=== PATIENT | female | born 1990 | race Caucasian/White ===

== ENCOUNTER 2018-09-21 22:46 | Emergency (ER) | payer OTHER ==
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
[2018-09-21] MEDS ORDERED: SODIUM CHLORIDE 0.9% 1,000 ML IV ONE (23:30)
[2018-09-21] MEDS ORDERED: KETOROLAC 60 MG/2 ML VIAL IVP STA (23:30)
[2018-09-21] MEDS ORDERED: diphenhydrAMINE INJ 50 MG/ML VIAL IVP STA (23:30)
[2018-09-21] MEDS ORDERED: METOCLOPRAMIDE 10 MG/2 ML VIAL IVP STA (23:30)
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
[2018-09-22 02:03] VITALS: BP 106/66
== END 2018-09-22 02:05 | disposition home or self-care (01) ==
LOC: ED 22:46
DX: G43.009 Migraine without aura, not intractable, without status migrainosus (principal); S09.90XA Unspecified injury of head, initial encounter; V29.9XXA Motorcycle rider (driver) (passenger) injured in unspecified traffic accident, initial encounter; F17.200 Nicotine dependence, unspecified, uncomplicated
CPT/HCPCS: 70450; 73090; 96361; 96374; 96375; 99284; J1200; J2765

== ENCOUNTER 2019-01-22 15:23 | Emergency (ER) | payer SELFPAY ==
--- NOTE | 2019-01-22 15:58 | ED Physician Documentation ---
PD HPI HEENT - Stated complaint Stated Complaint: L EAR/NECK PX - Chief complaint Chief Complaint: Heent - History obtained from History obtained from: Patient - History of Present Illness Timing - onset: How many days ago (4-5) Timing - duration: Days Timing - details: Gradual onset, Still present Location: Left ear (initially left ear pain and then pain in left side of neck with swollen glands.) Worsens: No: Swalllowing Associated symptoms: Congestion. No: Fever, Cough Recently seen: Not recently seen Review of Systems Constitutional: denies: Fever, Chills, Myalgias Ears: reports: Ear pain. denies: Drainage/discharge, Tinnitus/ringing Nose: reports: Congestion, Sinus pressure / pain. denies: Rhinorrhea / runny nose Throat: denies: Sore throat Respiratory: denies: Cough Musculoskeletal: reports: Neck pain (left lateral). 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 HEENT: None Psych: Depression, Anxiety Musculoskeletal: None Derm: None - Past Surgical History Past Surgical History: No - Present Medications Home Medications: Ambulatory Orders Medication Instructions Recorded Confirmed Cetirizine [ZyrTEC] 10 mg PO DAILY #15 tablet 01/22/19 Dexamethasone [Decadron] 4 mg PO DAILY #5 tablet 01/22/19 Doxycycline Hyclate 100 mg PO BID #20 capsule 01/22/19 Hydrocodone/Acetaminophen [[place] 1 each PO Q6H PRN #12 tablet 01/22/19 5-325 Tablet] - Allergies Allergies/Adverse Reactions: Allergies Allergy/AdvReac Type Severity Reaction Status Date / Time Latex, Natural Rubber AdvReac Anaphylaxis Verified 01/22/19 15:32 Penicillins AdvReac Anaphylaxis Verified 01/22/19 15:32 - Social History Does the pt smoke?: Yes Smoking Status: Current every day smoker Does the pt drink ETOH?: Yes Does the pt have substance abuse?: No - Immunizations Immunizations are current?: Yes - POLST Patient has POLST: No PD ED PE NORMAL - Vitals Vital signs reviewed: Yes - General General: Alert and oriented X 3, No acute distress, Well developed/nourished - HEENT HEENT: Pharynx benign. No: Ears normal (right is okay; left has appearance of fluid behind the TM, with slight redness. Canal has mild redness mid to medial portion. ) - Neck Neck: Supple, no meningeal sign, Other (left anterior adenopathy that is tender. ) - Cardiac Cardiac: RRR, No murmur - Respiratory Respiratory: Clear bilaterally - Derm Derm: Normal color, Warm and dry, No rash Results - Vitals Vitals: Oxygen O2 Source Room air PD MEDICAL DECISION MAKING - ED course Complexity details: considered differential (the TM appears more serous but she does have neck adenopathy so presume some infectious component. ), d/w patient Departure - Departure Disposition: Home, Self Care Clinical Impression: Otitis media Qualifiers: Otitis media type: suppurative Chronicity: acute Laterality: left Recurrence: non-recurrent Spontaneous tympanic membrane rupture: without spontaneous rupture Qualified Code(s): H66.002 - Acute suppurative otitis media without spontaneous rupture of ear drum, left ear Condition: Stable Record reviewed to determine appropriate education?: Yes Instructions: ED Otitis Media Acute Adult Prescriptions: Cetirizine [ZyrTEC] 10 mg PO DAILY #15 tablet Dexamethasone [Decadron] 4 mg PO DAILY #5 tablet Doxycycline Hyclate 100 mg PO BID #20 capsule Hydrocodone/Acetaminophen [[place] 5-325 Tablet] 1 each PO Q6H PRN #12 tablet PRN Reason: Pain Comments: It does look like an ear infection with fluid behind the eardrum some redness of the canal in the swollen glands you have. We will treated with an antibiotic doxycycline twice daily for a week. There is the fluid behind the eardrum so we will treat that with an antihistamine daily for a week or so and also Decadron steroid anti-inflammatory. Add Tylenol or ibuprofen if needed for pains. Hydrocodone for the worst pain but it should decrease over the first 2-3 days. Discharge Date/Time: 01/22/19 16:33
[2019-01-22] MEDS ORDERED: DEXAMETHASONE 10 MG/ML VIAL PO STA (16:14)
[2019-01-22] MEDS ORDERED: NAPROXEN 250 MG TABLET PO STA (16:14)
[2019-01-22] MEDS ORDERED: HYDROcod/ACETAM 5/325 MG TABLET PO STA (16:14)
[2019-01-22] MEDS ORDERED: DOXYCYCLINE 100 MG TABLET PO STA (16:14)
[2019-01-22 16:26] VITALS: BP 110/92
== END 2019-01-22 16:33 | disposition home or self-care (01) ==
LOC: ED 15:23
DX: H66.002 Acute suppurative otitis media without spontaneous rupture of ear drum, left ear (principal); F17.200 Nicotine dependence, unspecified, uncomplicated
CPT/HCPCS: 99283

== ENCOUNTER 2019-05-14 14:15 | Outpatient (CLI) | payer SELFPAY | END 2019-05-14 14:16 | disposition critical access hospital (66) | LOC: EMS 14:15 | PROVIDERS: ATTEND Surgery | DX: R51 Headache (principal); M25.511 Pain in right shoulder; M79.651 Pain in right thigh; Y04.2XXA Assault by strike against or bumped into by another person, initial encounter | CPT/HCPCS: A0425; A0429 ==

== ENCOUNTER 2019-05-14 14:47 | Emergency (ER) | payer SELFPAY ==
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
[2019-05-14] MEDS ORDERED: TETANUS/DIPHTHERIA/PERTUSSIS 0.5 ML SYRINGE IM ONE (15:10)
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
[2019-05-14 17:14] VITALS: BP 110/76
== END 2019-05-14 17:14 | disposition home or self-care (01) ==
LOC: EDUNIT# → EEVIPCON 14:47 → ED 14:47
DX: S09.8XXA Other specified injuries of head, initial encounter (principal); H53.8 Other visual disturbances; M54.2 Cervicalgia; M54.6 Pain in thoracic spine; Y04.2XXA Assault by strike against or bumped into by another person, initial encounter; Y04.1XXA Assault by human bite, initial encounter; Y92.007 Garden or yard of unspecified non-institutional (private) residence as the place of occurrence of the external cause; F17.200 Nicotine dependence, unspecified, uncomplicated
CPT/HCPCS: 70450; 70486; 72070; 72125; 90471; 99283

== ENCOUNTER 2020-09-17 04:31 | Emergency (ER) | payer SELFPAY ==
--- NOTE | 2020-09-17 04:33 | ED Physician Documentation ---
History of Present Illness - Stated complaint Stated Complaint: SZ - History obtained from History obtained from: Patient (patient provides minimal contribution to HPI/ROS; answers few questions, follows few commands; stammers and takes extensive time to complete single words (such as providing her first name). will not open eyes. tremulous but no seizure activity during H+P. lies on r side, resists repositioning), Friend - History of Present Illness Improved by: unable to ascertain Worsened by: unable to ascertain - Additonal information Additional information: brought to ED by friend's private vehicle. Patient needed to be brought from this vehicle into ED by wheelchair with ED staff assisting due to patient's tremulousness and does not follow commands. Patient's friend (who drove her to ED) says he met her through a mutual friend 2.5 weeks ago. Patient answers few questions and when she does, her speech stammers to the point of completing only a word or two at a time. She is tearful, holding her hand and a blanket over her eyes. When blanket is moved and she is persuaded to move her hand, she refuses to open her eyes except briefly (no more than a second) for pupil exam. She eventually spells her first name for registration. In trying to figure her last name, friend is asked and he says he does not know. She eventually spells her last name. Patient's friend says patient has had 12 seizures "over the past hour or so". He is unable to provide PMHx except he does say that she was evaluated in ED last month for similar c/o. It is not clear why he did not call 911 nor how he was able to get her into the vehicle. In trying to ascertain HPI/cc from patient, she only says "it hurts" to me but cannot elaborate. 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 : None HEENT: None Psych: Depression, Anxiety Musculoskeletal: None Derm: None - Past Surgical History Past Surgical History: No - Present Medications Home Medications: Ambulatory Orders Medication Instructions Recorded Confirmed Cetirizine [ZyrTEC] 10 mg PO DAILY #15 tablet 01/22/19 Doxycycline Hyclate 100 mg PO BID #20 capsule 01/22/19 Hydrocodone/Acetaminophen [Herod 1 each PO Q6H PRN #12 tablet 01/22/19 5-325 Tablet] dexAMETHasone [Decadron] 4 mg PO DAILY #5 tablet 01/22/19 - Allergies Allergies/Adverse Reactions: Allergies Allergy/AdvReac Type Severity Reaction Status Date / Time Latex, Natural Rubber AdvReac Anaphylaxis Verified 09/17/20 04:36 Penicillins AdvReac Anaphylaxis Verified 09/17/20 04:36 - Social History Does the pt smoke?: Yes Smoking Status: Current every day smoker Does the pt drink ETOH?: Yes Does the pt have substance abuse?: No - Immunizations Immunizations are current?: Yes Immunizations: TDAP >10years/unknown - POLST Patient has POLST: No PD ED PE NORMAL - Vitals Vital signs reviewed: Yes - General General: Well developed/nourished, Other (Tremulous, keeps eyes closed, grimacing at times. No rhythmic/coordinated clonic activity) - HEENT HEENT: Atraumatic, PERRL, EOMI, Other (No tongue bite/abrasion/echymosis) - Neck Neck: Supple, no meningeal sign - Cardiac Cardiac: No murmur - Respiratory Respiratory: No respiratory distress, Clear bilaterally - Abdomen Abdomen: Soft, Non tender - Derm Derm: Normal color, Warm and dry - Extremities Extremities: No edema PD ED PE EXPANDED - Cardiac Cardiac: Tachy, Regular Rhythm Results - Vitals Vitals: Vital Signs - 24 hr 09/17/20 09/17/20 09/17/20 04:33 04:43 05:10 Temperature 37.1 C Heart Rate 129 H 100 94 Respiratory 19 20 14 Rate Blood Pressure 153/98 H 119/80 O2 Saturation 96 97 100 09/17/20 09/17/20 09/17/20 05:50 06:17 06:44 Temperature Heart Rate 95 78 90 Respiratory 14 14 14 Rate Blood Pressure 122/96 H 135/86 H 117/80 O2 Saturation 99 100 100 09/17/20 07:01 Temperature Heart Rate 82 Respiratory 16 Rate Blood Pressure 128/74 O2 Saturation 99 Oxygen O2 Source Room air - Labs Labs: Laboratory Tests 09/17/20 09/17/20 09/17/20 04:30 04:30 04:30 WBC 16.1 H RBC 4.66 Hgb 14.4 Hct 44.4 MCV 95.3 MCH 30.9 MCHC 32.4 RDW 13.9 Plt Count 408 MPV 9.7 Neut # (Auto) Not Reportable Lymph # (Auto) Not Reportable [place] # (Auto) Not Reportable Eos # (Auto) Not Reportable Baso # (Auto) Not Reportable Absolute Nucleated RBC Not Reportable Total Counted 100 Band Neuts % (Manual) 0 Abnorm Lymph % (Manual) 0 Nucleated RBC % Not Reportable Neutrophils # (Manual) 11.4 H Lymphocytes # (Manual) 3.5 Monocytes # (Manual) 1.1 H Eosinophils # (Manual) 0.0 Basophils # (Manual) 0.0 Differential Comment MANUAL DIFFERENTIAL Platelet Estimate NORMAL (130-450,000) RBC Morph Micro Appear NORMAL APPEARANCE Sodium 136 Potassium 4.3 Chloride 101 Carbon Dioxide 23 Anion Gap 12.0 BUN 7 Creatinine 0.6 Estimated GFR (MDRD) 117 Glucose 96 Calcium 9.4 Total Bilirubin 1.1 H AST 14 ALT 16 Alkaline Phosphatase 63 Total Protein 7.7 Albumin 4.2 Globulin 3.5 Albumin/Globulin Ratio 1.2 Lipase 22 HCG, Quant < 0.60 Urine Color Urine Clarity Urine pH Ur Specific [place] Urine Protein Urine Glucose (UA) Urine Ketones Urine Occult Blood Urine Nitrite Urine Bilirubin Urine Urobilinogen Ur Leukocyte Esterase Urine RBC Urine WBC Ur Squamous Epith Cells Urine Bacteria Urine Trichomonas Ur Microscopic Review Urine Culture Comments Urine Opiates Screen Ur Oxycodone Screen Urine Methadone Screen Ur Propoxyphene Screen Ur Barbiturates Screen Ur Tricyclics Screen Ur Phencyclidine Scrn Ur Amphetamine Screen U Methamphetamines Scrn U Benzodiazepines Scrn Urine Cocaine Screen U Cannabinoids Screen Ethyl Alcohol < 5.0 09/17/20 05:57 WBC RBC Hgb Hct MCV MCH MCHC RDW Plt Count MPV Neut # (Auto) Lymph # (Auto) [place] # (Auto) Eos # (Auto) Baso # (Auto) Absolute Nucleated RBC Total Counted Band Neuts % (Manual) Abnorm Lymph % (Manual) Nucleated RBC % Neutrophils # (Manual) Lymphocytes # (Manual) Monocytes # (Manual) Eosinophils # (Manual) Basophils # (Manual) Differential Comment Platelet Estimate RBC Morph Micro Appear Sodium Potassium Chloride Carbon Dioxide Anion Gap BUN Creatinine Estimated GFR (MDRD) Glucose Calcium Total Bilirubin AST ALT Alkaline Phosphatase Total Protein Albumin Globulin Albumin/Globulin Ratio Lipase HCG, Quant Urine Color YELLOW Urine Clarity HAZY Urine pH 7.0 Ur Specific [place] 1.015 Urine Protein NEGATIVE Urine Glucose (UA) NEGATIVE Urine Ketones NEGATIVE Urine Occult Blood NEGATIVE Urine Nitrite NEGATIVE Urine Bilirubin NEGATIVE Urine Urobilinogen 0.2 (NORMAL) Ur Leukocyte Esterase MODERATE H Urine RBC 0-5 Urine WBC 4-5 Ur Squamous Epith Cells MANY Squamous H Urine Bacteria Few Urine Trichomonas PRESENT H Ur Microscopic Review INDICATED Urine Culture Comments NOT INDICATED Urine Opiates Screen NEGATIVE Ur Oxycodone Screen NEGATIVE Urine Methadone Screen NEGATIVE Ur Propoxyphene Screen NEGATIVE Ur Barbiturates Screen NEGATIVE Ur Tricyclics Screen NEGATIVE Ur Phencyclidine Scrn NEGATIVE Ur Amphetamine Screen POSITIVE H U Methamphetamines Scrn POSITIVE H U Benzodiazepines Scrn NEGATIVE Urine Cocaine Screen NEGATIVE U Cannabinoids Screen POSITIVE H Ethyl Alcohol - Rads (name of study) CT head Radiology: Prelim report reviewed, See rad report PD MEDICAL DECISION MAKING - ED course Complexity details: reviewed old records, reviewed results, re-evaluated patient, considered differential, d/w patient ED course: patient eventually was able to provide name and Her previous visits were located in [facility]; no indication of seizure history. Patient and her friend indicate she had ED visit last month, and those records were faxed to [facility] and reviewed by me. she had very similar presentation with similar w/u and findings. after returning from CT, patient rapidly became increasingly awake, alert, and eventually conversant. tremulousness resolved, and she subsequently was RRR, and using her cell phone and answering all questions and following all commands. she says she has no seizure history and was told to establish with a primary care provider so that she can obtain neurology referral for further evaluation. I reiterated this recommendation to her. I explained to her that what I witnessed in ED did nit appear to be seizure activity, she would likely still benefit from further testing. ED notes indicate suspicion of pseudoseizure. Tonight, trichomonas incidentally noted in UA sample; she denies discharge, pruritis, dysuria. given option for 1-dose treatment vs. 1 week; I discussed the higher treatment success rate and lower risk of side effects with the 1 week course, but she prefers single dose option. Departure - Departure Disposition: 01 Home, Self Care Clinical Impression: Altered mental status, Tremulousness, Trichomoniasis Condition: Good Instructions: ED Vaginitis Trichomonas, ED Symptoms No Dx Follow-Up: [facility] [Provider Group] Discharge Date/Time: 09/17/20 07:01
[2020-09-17 04:56] LABS: BASOPHILS % (AUTO) 0.5 %; EOSINOPHILS % (AUTO) 0.9 %; MEAN PLATELET VOLUME 9.7 fL (7.9-10.8); RED CELL DISTRIBUTION WIDTH 13.9 % (12.0-15.0)
[2020-09-17 04:59] LABS: HGB - HEMOGLOBIN 14.4 g/dL (12.0-16.0); LYMPHOCYTES % (AUTO) 29.9 %; MEAN CORPUSCULAR HEMOGLOBIN 30.9 pg (27.0-31.0); MEAN CORPUSCULAR HGB CONC 32.4 g/dL (32.0-36.0); MEAN CORPUSCULAR VOLUME 95.3 fL (81.0-99.0); MONOCYTES % (AUTO) 10.4 %; NEUTROPHILS % (AUTO) 57.8 %; PLT - PLATELET COUNT 408 10^3/uL (130-450); RED BLOOD COUNT 4.66 10^6/uL (4.20-5.40); WHITE BLOOD COUNT 16.1 x10^3/uL (4.8-10.8)
[2020-09-17] MEDS ORDERED: LORazepam 2 MG/ML VIAL IVP STA (05:01)
[2020-09-17 05:02] LABS: ABNORMAL LYMPHS % (MANUAL) 0 %; BAND NEUTROPHILS % (MANUAL) 0 %
[2020-09-17 05:09] LABS: ALBUMIN 4.2 g/dL (3.2-5.5); ALBUMIN/GLOBULIN RATIO 1.2 (1.0-2.2); ALKALINE PHOSPHATASE 63 IU/L (42-121); ALT ALANINE AMINOTRANSFERASE 16 IU/L (10-60); AST ASPARTATE AMINOTRANSFERASE 14 IU/L (10-42); BILIRUBIN,TOTAL 1.1 mg/dL (0.2-1.0); BUN - BLOOD UREA NITROGEN 7 mg/dL (6-20); CALCIUM 9.4 mg/dL (8.5-10.3); CARBON DIOXIDE - CO2 23 mmol/L (21-32); CHLORIDE 101 mmol/L (101-111); CREATININE 0.6 mg/dL (0.4-1.0); GLUCOSE 96 mg/dL (70-100); LIPASE 22 U/L (22-51); SODIUM 136 mmol/L (135-145); TOTAL PROTEIN 7.7 g/dL (6.7-8.2)
[2020-09-17 05:25] LABS: DIFFERENTIAL COMMENT MANUAL DIFFERENTIAL; LYMPHOCYTES # (MANUAL) 3.5 10^3/uL (1.5-3.5); LYMPHOCYTES % (MANUAL) 22 %; MONOCYTES # (MANUAL) 1.1 10^3/uL (0.0-1.0); PLATELET ESTIMATE, MANUAL NORMAL (130-450,000) (NORMAL); RBC MORPHOLOGY (MULTIPLE) NORMAL APPEARANCE (NORMAL)
[2020-09-17 06:03] LABS: MUDS CUTOFF CONCENTRATIONS CUTOFF CONC BELOW:
[2020-09-17 06:07] LABS: BILIRUBIN,URINE NEGATIVE (NEGATIVE); GLUCOSE, URINE (UA) NEGATIVE (NEGATIVE); KETONES,URINE (UA) NEGATIVE (NEGATIVE); LEUKOCYTE ESTERASE, URINE MODERATE (NEGATIVE); NITRITE,URINE NEGATIVE (NEGATIVE); OCCULT BLOOD,URINE NEGATIVE (NEGATIVE); PROTEIN,URINE NEGATIVE (NEGATIVE); UROBILINOGEN,URINE 0.2 (NORMAL) E.U./dL (NORMAL)
[2020-09-17 06:08] LABS: CLARITY,URINE HAZY (CLEAR)
[2020-09-17 06:19] LABS: COCAINE SCREEN URINE NEGATIVE (NEGATIVE); METHAMPHETAMINES SCREEN, URINE POSITIVE (NEGATIVE)
[2020-09-17 06:20] LABS: AMPHETAMINE SCREEN,URINE POSITIVE (NEGATIVE); BENZODIAZEPINES SCREEN, URINE NEGATIVE (NEGATIVE); METHADONE SCREEN, URINE NEGATIVE (NEGATIVE); OPIATE SCREEN, URINE NEGATIVE (NEGATIVE); OXYCODONE SCREEN, URINE NEGATIVE (NEGATIVE); PROPOXYPHENE SCREEN, URINE NEGATIVE (NEGATIVE); TRICYCLIC ANTIDEPRESSANT,URINE NEGATIVE (NEGATIVE)
[2020-09-17 06:25] LABS: BACTERIA,URINE Few /HPF (None Seen); RBC,URINE 0-5 /HPF (0-5); SQUAMOUS EPITHELIAL CELL,UR MANY Squamous (<= Few)
[2020-09-17 06:26] LABS: TRICHOMONAS,URINE PRESENT (None Seen)
[2020-09-17] MEDS ORDERED: metroNIDAZOLE 250 MG TABLET PO STA (06:46)
[2020-09-17 07:02] VITALS: BP 128/74
--- NOTE | 2020-09-17 07:05 | CT Report ---
PROCEDURE: HEAD WO INDICATIONS: AMS TECHNIQUE: Noncontrast 4.5 mm thick angled axial sections acquired from the foramen magnum to the vertex. For r adiation dose reduction, the following was used: automated exposure control, adjustment of mA and/or kV according to patient size. COMPARISON: None. FINDINGS: Image quality: Excellent. CSF spaces: Basal cisterns are patent. No extra-axial fluid collections. Ventricles are normal in size and shape. Brain: No midline shift. No intracranial masses or hemorrhage. Khan-white matter interface is norm al. Skull and face: Calvarium and visualized facial bones are intact, without suspicious lesions. Sinuses: Minimal right ethmoid sinus mucosal thickening. Remainder the visualized sinuses and mastoi ds are clear. IMPRESSION: CT head without acute intracranial abnormalities or mass effect. Minimal right ethmoid sinus disease. No significant discrepancy with initial interpretation by overnight radiologist. Reviewed by: Blas Adair MD on 09/17/2020 7:04 AM PDT Approved by: Blas Adari MD on 09/17/2020 7:04 AM PDT Station ID: [id number]
== END 2020-09-17 07:01 | disposition home or self-care (01) ==
LOC: ED 04:31
DX: R41.82 Altered mental status, unspecified (principal); R25.1 Tremor, unspecified; N39.0 Urinary tract infection, site not specified; B96.89 Other specified bacterial agents as the cause of diseases classified elsewhere; F17.200 Nicotine dependence, unspecified, uncomplicated
CPT/HCPCS: 36415; 70450; 80053; 80306; 80320; 81001; 83690; 84702; 85025; 99281; 99284; A9270; 81003; 87086

== ENCOUNTER 2020-12-07 02:04 | Emergency (ER) | payer SELFPAY ==
--- NOTE | 2020-12-07 02:10 | ED Physician Documentation ---
PD HPI HEENT - Stated complaint Stated Complaint: EAR PX/URIAS - History obtained from History obtained from: Patient - History of Present Illness Timing - onset: Yesterday Timing - details: Gradual onset Location: Right ear, Left ear Improves: Nothing Worsens: Other (no exacerbating factors) Associated symptoms: No: Fever, Congestion, Unable to swallow, Headache, Cough Recently seen: Not recently seen - Additional information Additional information: c/o bilateral ear pain since yesterday, L>R. the pain has progressed in severity and did not respond to ibuprofen taken this evening. The pain has spread to both sides of her neck as well. She says she has had these symptoms before and has had to go to ED in the past for this, typically improves with antibiotics. She says the regimen of medications prescribed when she last was in [facility] ED for this resulted in resolution of her symptoms after a few days. Review of Systems Constitutional: denies: Fever, Chills, Sweats Eyes: denies: Loss of vision, Decreased vision, Photophobia, Discharge Ears: reports: Ear pain. 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 : None HEENT: None Psych: Depression, Anxiety Musculoskeletal: None Derm: None - Past Surgical History Past Surgical History: No - Present Medications Home Medications: Ambulatory Orders Medication Instructions Recorded Confirmed Azithromycin [Zithromax] 250 mg PO DAILY #4 tablet 12/07/20 Cetirizine [ZyrTEC] 10 mg PO DAILY #14 tablet 12/07/20 HYDROcod/ACETAM 5/325 [[place] 5/325] 1 ea PO Q6H PRN #14 tablet 12/07/20 dexAMETHasone [Decadron] 4 mg PO DAILY #4 tablet 12/07/20 - Allergies Allergies/Adverse Reactions: Allergies Allergy/AdvReac Type Severity Reaction Status Date / Time Latex, Natural Rubber AdvReac Anaphylaxis Verified 12/07/20 02:14 Penicillins AdvReac Anaphylaxis Verified 12/07/20 02:14 - Social History Does the pt smoke?: Yes Smoking Status: Current every day smoker Does the pt drink ETOH?: Yes Does the pt have substance abuse?: No - Immunizations Immunizations are current?: Yes Immunizations: TDAP >10years/unknown - POLST Patient has POLST: No PD ED PE NORMAL - Vitals Vital signs reviewed: Yes - General General: Alert and oriented X 3, Well developed/nourished, Other (appears uncomfortable) - HEENT HEENT: Moist mucous membranes, Other (normal right TM; left TM with trace erythema. normal bilateral external auditory canals. mild posterior o/p erythema without exudate) - Neck Neck: Supple, no meningeal sign - Respiratory Respiratory: No respiratory distress, Clear bilaterally - Neuro Eye Opening: Spontaneous Motor: Obeys Commands Verbal: Oriented GCS Score: 15 Results - Vitals Vitals: Vital Signs - 24 hr 12/07/20 02:05 Temperature 36.2 C L Heart Rate 92 Respiratory 18 Rate Blood Pressure 137/88 H O2 Saturation 100 Oxygen O2 Source Room air PD MEDICAL DECISION MAKING - ED course Complexity details: reviewed old records, considered differential, d/w patient ED course: c/o bilateral ear pain since yesterday, gradual onset and progressing in intensity. she has mild posterior pharyngeal erythema without exudate, normal appearing right TM with left TM having trace erythema. Suspect mostly serous otitis but patient says she has had good response to antibiotics in the past; she says she does not have PMD and thus timely follow would be challenging. I discussed option of antibiotic vs. symptomatic treatment and return if worse; she strongly prefers antibiotic. Departure - Departure Disposition: 01 Home, Self Care Clinical Impression: Otitis media Condition: Good Instructions: ED Otitis Media Acute Adult Follow-Up: [facility] [Provider Group] Prescriptions: dexAMETHasone [Decadron] 4 mg PO DAILY #4 tablet HYDROcod/ACETAM 5/325 [[place] 5/325] 1 ea PO Q6H PRN #14 tablet PRN Reason: Pain Azithromycin [Zithromax] 250 mg PO DAILY #4 tablet Cetirizine [ZyrTEC] 10 mg PO DAILY #14 tablet Discharge Date/Time: 12/07/20 02:40
[2020-12-07 02:14] VITALS: BP 137/88
[2020-12-07] MEDS ORDERED: AZITHROMYCIN 250 MG TABLET PO STA (02:26)
[2020-12-07] MEDS ORDERED: CETIRIZINE 10 MG TABLET PO STA (02:26)
[2020-12-07] MEDS ORDERED: DEXAMETHASONE 10 MG/ML VIAL PO STA (02:26)
[2020-12-07] MEDS ORDERED: HYDROcod/ACETAM 5/325 MG TABLET PO STA (02:26)
[2020-12-07] MEDS ORDERED: CHERRY SYRUP 10 ML UDC PO ONE (02:26)
== END 2020-12-07 02:40 | disposition home or self-care (01) ==
LOC: ED 02:04
DX: H66.93 Otitis media, unspecified, bilateral (principal); F17.200 Nicotine dependence, unspecified, uncomplicated
CPT/HCPCS: 99283; A9270

== ENCOUNTER 2021-05-15 11:20 | Emergency (ER) | payer SELFPAY ==
--- NOTE | 2021-05-15 12:33 | XRAY Report ---
PROCEDURE: Elbow 3 View RT INDICATIONS: fall olecrenon contusion TECHNIQUE: 3 views of the elbow were acquired. COMPARISON: None FINDINGS: Bones: No fractures or dislocations. No suspicious bony lesions. Soft tissues: No elbow joint effusion. No suspicious soft tissue calcifications. IMPRESSION: No evidence acute bony abnormality of the right elbow. Reviewed by: Carlos Valencia MD on 05/15/2021 11:32 AM [place] Approved by: Carlos Valencia MD on 05/15/2021 11:32 AM [place] Station ID: [id number]
--- NOTE | 2021-05-15 12:34 | XRAY Report ---
PROCEDURE: Shoulder 3 View RT INDICATIONS: FOOSH shoulder pain TECHNIQUE: 4 views of the shoulder were acquired. COMPARISON: None. FINDINGS: Bones: No fractures or dislocations. No suspicious bony lesions. Visualized ribs appear intact. Soft tissues: No suspicious soft tissue calcifications. IMPRESSION: No evidence acute bony abnormality of the right shoulder. Reviewed by: Carlos Valencia MD on 05/15/2021 11:33 AM [place] Approved by: Carlos Valencia MD on 05/15/2021 11:33 AM MODESOT Station ID: [id number]
--- NOTE | 2021-05-15 12:35 | XRAY Report ---
PROCEDURE: Wrist 4 View RT INDICATIONS: FOOSH TECHNIQUE: 4 views of the wrist were acquired. COMPARISON: None FINDINGS: Bones: No fractures or dislocations. No suspicious bony lesions. Scaphoid view: Scaphoid intact Soft tissues: No suspicious soft tissue calcifications. IMPRESSION: No evidence acute bony abnormality of the right wrist. Reviewed by: Carlos Valencia MD on 05/15/2021 11:34 AM [place] Approved by: Carlos Valencia MD on 05/15/2021 11:34 AM [place] Station ID: [id number]
[2021-05-15 13:16] VITALS: BP 139/94
--- NOTE | 2021-05-15 13:17 | ED Physician Documentation ---
PD HPI UPPER EXT INJURY - Stated complaint Stated Complaint: RT ARM PX - Chief complaint Chief Complaint: Trauma Ext - History obtained from History obtained from: Patient, Family - History of Present Illness Location: Right, Shoulder, Elbow, Wrist Type of injury: Fall Where injury occurred: Street Timing - onset: Today Timing - duration: Minutes Timing - details: Abrupt onset, Still present Improved by: Rest, Immobilization Worsened by: Moving, Palpating Associated symptoms: No: Weakness, Numbness, Tingling, Swelling Contributing factors: No: Anticoagulated Similar symptoms before: Has not had sx before Recently seen: Not recently seen - Additonal information Additional information: 30-year-old female was getting out of her truck when she fell and fell onto her right arm. She has pain in the shoulder elbow and wrist. 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 : None HEENT: None Psych: Depression, Anxiety Musculoskeletal: None Derm: None - Past Surgical History Past Surgical History: No - Present Medications Home Medications: Ambulatory Orders Medication Instructions Recorded Confirmed No Known Home Medications 05/15/21 05/15/21 - Allergies Allergies/Adverse Reactions: Allergies Allergy/AdvReac Type Severity Reaction Status Date / Time Latex, Natural Rubber AdvReac Anaphylaxis Verified 05/15/21 11:27 Penicillins AdvReac Anaphylaxis Verified 05/15/21 11:27 - Social History Does the pt smoke?: Yes Smoking Status: Current every day smoker Does the pt drink ETOH?: Yes Does the pt have substance abuse?: Yes Substance Use and Type: Marijuana - Immunizations Immunizations are current?: Yes Immunizations: TDAP >10years/unknown - POLST Patient has POLST: No PD ED PE NORMAL - Vitals Vital signs reviewed: Yes - General General: Alert and oriented X 3, Well developed/nourished, Other (acutely acting like she is in pain. ) - HEENT HEENT: Atraumatic, PERRL - Respiratory Respiratory: No respiratory distress - Derm Derm: Normal color, No rash - Extremities Extremities: No deformity, No edema, Other (There is no specific swelling or deformity to the wrist elbow or shoulder. The patient when she is in cries without touching the affected parts.) - Neuro Neuro: Alert and oriented X 3, thread grinder tool 2-12 intact, No motor deficit, No sensory deficit, Normal speech Eye Opening: Spontaneous Motor: Obeys Commands Verbal: Oriented GCS Score: 15 - Psych Psych: Normal mood, Normal affect Results - Vitals Vitals: Vital Signs - 24 hr 05/15/21 05/15/21 05/15/21 11:23 11:38 12:37 Temperature 36.6 C Heart Rate 93 94 78 Respiratory 18 20 16 Rate Blood Pressure 126/86 H 133/81 H 123/108 H O2 Saturation 100 99 100 05/15/21 13:15 Temperature 36.8 C Heart Rate 79 Respiratory 12 Rate Blood Pressure 139/94 H O2 Saturation 100 Oxygen O2 Source Room air - Rads (name of study) wrist Radiology: Prelim report reviewed (Impression: No evidence of acute bony abnormality of the right wrist.), EMP read indepedently, See rad report shoulder Radiology: Prelim report reviewed (Impression: No evidence of acute bony abnormality of the right shoulder.), EMP read indepedently, See rad report Elbow Radiology: Prelim report reviewed (Impression: No evidence of acute bony abnormality of the right elbow.), EMP read indepedently, See rad report PD MEDICAL DECISION MAKING - ED course Complexity details: reviewed results, re-evaluated patient, considered differential, d/w patient, d/w family ED course: 28-year-old female fell out of her truck has pain in her wrist elbow and shoulder x-rays without fracture she is placed into a sling has some improvement. Departure - Departure Disposition: 01 Home, Self Care Clinical Impression: Sprain of right shoulder Qualifiers: Encounter type: initial encounter Shoulder sprain type: unspecified sprain Qualified Code(s): S43.401A - Unspecified sprain of right shoulder joint, initial encounter Elbow contusion Qualifiers: Encounter type: initial encounter Laterality: right Qualified Code(s): S50.01XA - Contusion of right elbow, initial encounter Wrist sprain Qualifiers: Encounter type: initial encounter Laterality: right Qualified Code(s): S63.501A - Unspecified sprain of right wrist, initial encounter Condition: Stable Instructions: ED Sprain Elbow, ED Sprain Shoulder, ED Sprain Wrist Follow-Up: [facility] [Provider Group] Discharge Date/Time: 05/15/21 13:25
== END 2021-05-15 13:25 | disposition home or self-care (01) ==
LOC: ED 11:20
DX: S43.401A Unspecified sprain of right shoulder joint, initial encounter (principal); S63.501A Unspecified sprain of right wrist, initial encounter; S50.01XA Contusion of right elbow, initial encounter; V58.4XXA Person boarding or alighting a pick-up truck or van injured in noncollision transport accident, initial encounter; Y92.410 Unspecified street and highway as the place of occurrence of the external cause; F17.200 Nicotine dependence, unspecified, uncomplicated
CPT/HCPCS: 99283; 99284

== ENCOUNTER 2021-07-28 16:04 | Outpatient (CLI) | payer SELFPAY | END 2021-07-28 16:05 | disposition EMS.NT | LOC: EMS 16:04 | DX: S50.312A Abrasion of left elbow, initial encounter (principal); V53.5XXA Driver of pick-up truck or van injured in collision with car, pick-up truck or van in traffic accident, initial encounter; W22.10XA Striking against or struck by unspecified automobile airbag, initial encounter; Y93.89 Activity, other specified; Y92.413 State road as the place of occurrence of the external cause ==

== ENCOUNTER 2022-12-18 19:15 | Inpatient (IN) | payer SELFPAY ==
[2022-12-18 19:48] LABS: BASOPHILS % (AUTO) 0.2 %; EOSINOPHILS % (AUTO) 0.2 %; HCT - HEMATOCRIT 41.2 % (37.0-47.0); HGB - HEMOGLOBIN 13.3 g/dL (12.0-16.0); MEAN CORPUSCULAR HEMOGLOBIN 29.8 pg (27.0-31.0); MEAN CORPUSCULAR HGB CONC 32.3 g/dL (32.0-36.0); MEAN CORPUSCULAR VOLUME 92.2 fL (81.0-99.0); MEAN PLATELET VOLUME 9.5 fL (7.9-10.8); NEUTROPHILS % (AUTO) 75.2 %; PLT - PLATELET COUNT 318 10^3/uL (130-450); RED BLOOD COUNT 4.47 10^6/uL (4.20-5.40); RED CELL DISTRIBUTION WIDTH 14.6 % (12.0-15.0)
[2022-12-18 19:50] LABS: ABNORMAL LYMPHS % (MANUAL) 0 %
[2022-12-18] MEDS ORDERED: iohexoL-300 100 ML VIAL ONE (20:10)
[2022-12-18 20:12] LABS: ALBUMIN 3.2 g/dL (3.2-5.5); ALBUMIN/GLOBULIN RATIO 0.8 (1.0-2.2); BILIRUBIN,TOTAL 0.7 mg/dL (0.2-1.0); CALCIUM 8.6 mg/dL (8.5-10.3); CREATININE 0.7 mg/dL (0.4-1.0); POTASSIUM 3.7 mmol/L (3.5-5.0); TOTAL PROTEIN 7.3 g/dL (6.7-8.2)
[2022-12-18] MEDS ORDERED: HYDROmorphone 1 MG/ML CARPUJECT IVP STA (20:12)
[2022-12-18] MEDS ORDERED: SODIUM CHLORIDE 0.9% 1,000 ML IV STA ×2 (20:12→23:00)
[2022-12-18] MEDS ORDERED: ONDANSETRON 4 MG/2 ML VIAL IVP STA (20:12)
--- NOTE | 2022-12-18 20:16 | ED Physician Documentation ---
History of Present Illness - Stated complaint Stated Complaint: LOWER BACK PX - Chief complaint Chief Complaint: Abd Pain - Additonal information Additional information: 32-year-old female presents to the emergency department for evaluation of bilateral flank pain, low back pain and uncontrolled nausea vomiting and diarrhea now for 3 days. She presents appearing moderately ill very uncomfortable and with pain out of proportion on abdominal exam. She denies any previous history of abdominal surgery. Takes no prescribed medications. Denies any urinary symptoms. She cries with any palpation of her abdomen. 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 : None HEENT: None Psych: Depression, Anxiety Musculoskeletal: None Derm: None - Past Surgical History Past Surgical History: No - Present Medications Home Medications: Ambulatory Orders Medication Instructions Recorded Confirmed No Known Home Medications 05/15/21 12/18/22 - Allergies Allergies/Adverse Reactions: Allergies Allergy/AdvReac Type Severity Reaction Status Date / Time Latex, Natural Rubber AdvReac Anaphylaxis Verified 12/18/22 19:24 Penicillins AdvReac Anaphylaxis Verified 12/18/22 19:24 - Social History Does the pt smoke?: Yes Smoking Status: Current every day smoker Does the pt drink ETOH?: Yes Does the pt have substance abuse?: Yes - Immunizations Immunizations are current?: Yes Immunizations: TDAP >10years/unknown - POLST Patient has POLST: No PD ED PE EXPANDED - General General: Alert, In Pain, In distress - Cardiac Cardiac: Tachy, Radial strong equal, Pedal strong equal, Cap refill < 2 sec. No: Murmur Present - Respiratory Respiratory: Clear to ausultation mary jo. No: Distress, Labored - Abdomen Abdomen: Other (Tenderness with palpation across the lower abdomen with guarding and rebound nonfocal. Bilateral flank and CVA tenderness also elicited) - Derm Derm: Normal color, Warm and dry. No: Rash - GCS Eye Opening: Spontaneous Motor: Obeys Commands Verbal: Oriented Total: 15 Results - Vitals Vitals: Vital Signs - 24 hr 12/18/22 12/18/22 19:19 19:24 Temperature 37.2 C Heart Rate 115 H 109 H Respiratory 22 19 Rate Blood Pressure 116/62 122/68 O2 Saturation 100 100 Oxygen O2 Source Room air - Labs Labs: Laboratory Tests 12/18/22 12/18/22 12/18/22 19:42 19:42 20:26 WBC 18.0 H RBC 4.47 Hgb 13.3 Hct 41.2 MCV 92.2 MCH 29.8 MCHC 32.3 RDW 14.6 Plt Count 318 MPV 9.5 Neut # (Auto) Not Reportable Lymph # (Auto) Not Reportable [place] # (Auto) Not Reportable Eos # (Auto) Not Reportable Baso # (Auto) Not Reportable Absolute Nucleated RBC Not Reportable Total Counted 100 Band Neuts % (Manual) 2 Abnorm Lymph % (Manual) 0 Nucleated RBC % Not Reportable Neutrophils # (Manual) 14.4 H Lymphocytes # (Manual) 1.8 Monocytes # (Manual) 1.8 H Eosinophils # (Manual) 0.0 Basophils # (Manual) 0.0 Differential Comment MANUAL DIFFERENTIAL Platelet Estimate NORMAL (130-450,000) Platelet Morphology NORMAL APPEARANCE RBC Morph Micro Appear NORMAL APPEARANCE Sodium 132 L Potassium 3.7 Chloride 96 L Carbon Dioxide 26 Anion Gap 10.0 BUN 5 L Creatinine 0.7 Estimated GFR (MDRD) 96 Glucose 100 Calcium 8.6 Total Bilirubin 0.7 AST 18 ALT 40 Alkaline Phosphatase 94 Total Protein 7.3 Albumin 3.2 Globulin 4.1 Albumin/Globulin Ratio 0.8 L Lipase 20 L Urine Color YELLOW Urine Clarity CLOUDY Urine pH 7.0 Ur Specific [place] 1.010 Urine Protein 30 H Urine Glucose (UA) NEGATIVE Urine Ketones NEGATIVE Urine Occult Blood SMALL H Urine Nitrite NEGATIVE Urine Bilirubin NEGATIVE Urine Urobilinogen 0.2 (NORMAL) Ur Leukocyte Esterase MODERATE H Urine RBC 6-10 H Urine WBC >25 H Ur Squamous Epith Cells FEW Squamous Urine Bacteria Moderate H Ur Microscopic Review INDICATED Urine Culture Comments INDICATED Urine HCG, Qual NEGATIVE - Rads (name of study) CT abdomen Radiology: Final report received (Extensive intraluminal gas within the bladder as well as gas in the bladder wall. Findings consistent with emphysematous cystitis. Illustrated nephrograms consistent with pyelonephritis. No hydronephrosis or perinephric abscess. ) PD Medical Decision Making - ED course Complexity details: reviewed results, re-evaluated patient, considered differential, d/w patient, d/w family ED course: 32-year-old female presents the emergency department for evaluation of 3 to 4 days of uncontrolled lower abdominal pain, nausea and vomiting. She denies any urinary symptoms. On presentation however she appears acutely uncomfortable and has pain out of proportion with any palpation of the lower abdomen. We did obtain an initial CBC and per my interpretation she has marked elevation in the white count/leukocytosis. Her urinalysis is frankly consistent with infection. Her electrolytes Show no acute worrisome findings. With the pain out of proportion our differentials considered included ruptured appendix, ovarian torsion, small bowel obstruction acute pyelonephritis. We did obtain a CT of the abdomen with contrast. The radiologist called me with findings showing extensive intraluminal gas within the bladder and bladder wall consistent with emphysematous cystitis. She also has bilateral soft radiated nephrograms consistent with acute pyelonephritis. There was no findings to suggest hydronephrosis or perinephric abscess. Here in the emergency department I did administer a single dose of IV Dilaudid which improved her pain quite a bit. She also received a liter of IV fluids as she was mildly tachycardic though not hypotensive or febrile on exam With these findings the patient was administered IV Levaquin and Flagyl. She has anaphylaxis to penicillin. Unfortunately she will likely need urological evaluation which is not available here at this hospital. I have requested the images be sent to [facility] and I am asking for consult for transfer for further management of this very interesting case. I have also requested nursing staff to place a Maxwell catheter. Patient will be signed out to my nighttime colleague to follow-up on any overnight events as well as to assist in the transfer of this patient Departure - Departure Disposition: 02 Transfer Acute Care Hosp Clinical Impression: Emphysematous cystitis, Pyelonephritis Condition: Serious
[2022-12-18 20:24] LABS: BAND NEUTROPHILS % (MANUAL) 2 %; DIFFERENTIAL COMMENT MANUAL DIFFERENTIAL; LYMPHOCYTES # (MANUAL) 1.8 10^3/uL (1.5-3.5); LYMPHOCYTES % (MANUAL) 10 %; MONOCYTES # (MANUAL) 1.8 10^3/uL (0.0-1.0); NEUTROPHILS # (MANUAL) 14.4 10^3/uL (1.5-6.6); PLATELET ESTIMATE, MANUAL NORMAL (130-450,000) (NORMAL); PLATELET MORPHOLOGY NORMAL APPEARANCE (NORMAL); RBC MORPHOLOGY (MULTIPLE) NORMAL APPEARANCE (NORMAL)
[2022-12-18] MEDS ORDERED: diphenhydrAMINE INJ 50 MG/ML VIAL IVP STA (20:24)
[2022-12-18 20:41] LABS: BILIRUBIN,URINE NEGATIVE (NEGATIVE); CLARITY,URINE CLOUDY (CLEAR); GLUCOSE, URINE (UA) NEGATIVE (NEGATIVE); KETONES,URINE (UA) NEGATIVE (NEGATIVE); LEUKOCYTE ESTERASE, URINE MODERATE (NEGATIVE); NITRITE,URINE NEGATIVE (NEGATIVE); OCCULT BLOOD,URINE SMALL (NEGATIVE); PROTEIN,URINE 30 mg/dL (NEGATIVE); UROBILINOGEN,URINE 0.2 (NORMAL) E.U./dL (NORMAL)
[2022-12-18 20:43] LABS: HCG UR QUAL NEGATIVE
[2022-12-18 20:49] LABS: BACTERIA,URINE Moderate /HPF (None Seen); SQUAMOUS EPITHELIAL CELL,UR FEW Squamous (<= Few); WBC,URINE >25 /HPF (0-5)
[2022-12-18] MEDS ORDERED: iohexoL-300 100 ML VIAL IVP ONE (20:57)
[2022-12-18] MEDS ORDERED: cefTRIAXone 1 GM in SODIUM CHLORIDE 0.9% MINIBAG 100 ML IV STA (21:23)
[2022-12-18] MEDS ORDERED: metroNIDAZOLE 500 MG/100 ML 500 MG/100 ML BAG IV ONE (21:25)
[2022-12-18] MEDS ORDERED: cefTRIAXone 1 GM VIAL ONE (21:27)
--- NOTE | 2022-12-18 21:28 | CT Report ---
PROCEDURE: ABDOMEN/PELVIS W INDICATIONS: feves, flank pain CONTRAST: 100 ML OMNI 300 TECHNIQUE: After the administration of intravenous contrast, 5 mm thick sections acquired from the diaphragms to the symphysis. 5 mm thick coronal and sagittal reformats were acquired. For radiation dose reducti on, the following was used: automated exposure control, adjustment of mA and/or kV according to lora ent size. COMPARISON: None. FINDINGS: Image quality: Excellent. Lung bases:There is minimal dependent atelectasis. Heart: Heart is normal in size. ABDOMEN: Liver: No mass lesion. Gallbladder: Within normal limits without calcified gallstones. Biliary ducts: No biliary ductal dilatation. Pancreas: Unremarkable. Spleen: Normal in size. Adrenal Glands: No adrenal nodules. Kidneys and Ureters: There is heterogeneous enhancement of the kidneys bilaterally consistent with f atty nephrograms. No perinephric or intrarenal fluid collection to suggest an abscess. No hydronephro sis. There is mild urothelial thickening and enhancement bilaterally consistent with a urinary tract infection. Stomach and Bowel: Stomach, small bowel loops, and colon are normal in caliber and wall thickness. T he appendix is normal in appearance. Peritoneum: No abnormal intraperitoneal fluid. No free air. Ventral Wall: No hernia. Abdominal Nodes: No retroperitoneal or mesenteric adenopathy by size criteria. Vessels: Aorta and inferior vena cava are normal in size. PELVIS: Pelvic Organs:There is a thin-walled cyst in the right hemipelvis posteriorly measuring up to 3.9 x 3.3 cm. There is also an adjacent peripherally enhancing cyst measuring up to 1.9 x 1.4 cm. Bladder: The bladder is markedly distended with extensive intraluminal gas as well as gas within the bladder wall. The findings are consistent with emphysematous cystitis. Pelvic Nodes: No enlarged lymph nodes. Miscellaneous: No inguinal hernias. Bones: Visualized osseous structures demonstrate no suspicious lesions. IMPRESSION: 1. Extensive intraluminal gas within the bladder as well as gas in the bladder wall. Findings are con sistent with emphysematous cystitis. 2. Bilateral striated nephrograms consistent with pyelonephritis. No evidence of hydronephrosis or pe rinephric abscess. 3. Bilateral urothelial thickening and enhancement consistent with a urinary tract infection. Urgent findings of emphysematous cystitis discussed with Eunice Nelson on 12/18/2022 at 9:20 PM. Reviewed by: Raul Hart MD on 12/18/2022 9:26 PM PST Approved by: Raul Hart MD on 12/18/2022 9:26 PM PST Station ID: [id number]
[2022-12-18] MEDS ORDERED: levoFLOXacin 500 MG/100 ML 500 MG/100 ML BAG IV SCH (22:00)
[2022-12-18 22:34] LABS: B. PARAPERTUSSIS- RESP PCR PAN NOT DETECTED; B. PERTUSSIS- RESP PCR PANEL NOT DETECTED; C. PNEUMONIAE- RESP PCR PANEL NOT DETECTED; CORONAVIRUS 229E-RESP PCR NOT DETECTED; CORONAVIRUS HKU1-RESP PCR NOT DETECTED; CORONAVIRUS NL63-RESP PCR NOT DETECTED; CORONAVIRUS OC43-RESP PCR NOT DETECTED; HUMAN METAPNEUMOVIRUS NOT DETECTED; INFLUENZA A- RESP PCR PANEL NOT DETECTED; INFLUENZA B - RESP PCR PANEL NOT DETECTED; M. PNEUMONIAE- RESP PCR PANEL NOT DETECTED; PARAINFLUENZA VIRUS 1 NOT DETECTED; PARAINFLUENZA VIRUS 2 NOT DETECTED; PARAINFLUENZA VIRUS 3 NOT DETECTED; PARAINFLUENZA VIRUS 4 NOT DETECTED; RHINOVIRUS/ENTEROVIRUS NOT DETECTED; RSV- RESP PCR PANEL NOT DETECTED; SARS-CoV-2 -RESP PCR PANEL NOT DETECTED
[2022-12-18] MEDS ORDERED: KETOROLAC 30 MG/ML VIAL IVP STA (23:01)
[2022-12-18] MEDS ORDERED: HYDROmorphone 0.5 MG/0.5 ML SYRINGE IVP STA (23:01)
--- NOTE | 2022-12-18 23:46 | HISTORY & PHYSICAL EXAMINATION ---
Chief Complaint - Chief Complaint Chief Complaint: flank pain History of Present Illness - Admitted From Admitted From:: home - History Obtained From History obtained from: patient - History of Present Illness HPI Comment/Other: Ms Breaux is a 32 yo F without pertinent medical history presents to ER with c/o 4-5 days of abd pain, flank pain, poor appetite. Pt also had nausea and vomiting today. She denies cp, sob, cough, fevers, chills, hematuria, dysuria. No changes in bowel or bladder habits. Denies prior history of UTI. No prior surgical history. Denies sick contacts. Smokes tobacco daily 1 pack / 3 days. 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 - Substance History Use: Uses substance without health or social issues: Tobacco (1 pack / 3 days ), Cannabis Tobacco Details: Cigarettes - POLST Patient has POLST: No POLST Status: Full Code Meds/Allgy - Home Medications Home Medications: Ambulatory Orders Medication Instructions Recorded Confirmed No Known Home Medications 05/15/21 12/18/22 - Allergies Allergies/Adverse Reactions: Allergies Allergy/AdvReac Type Severity Reaction Status Date / Time Latex, Natural Rubber AdvReac Anaphylaxis Verified 12/18/22 19:24 Penicillins AdvReac Anaphylaxis Verified 12/18/22 19:24 Review of Systems - Constitutional Constitutional: reports: Malaise, Poor appetite. denies: Fever, Chills - Cardiovascular Cariovascular: denies: Chest pain, Lightheadedness - Respiratory Respiratory: denies: Cough, Sputum production - Gastrointestinal Gastrointestinal: reports: Abdominal pain, Nausea, Vomiting, Poor appetite. denies: Abdominal distention, Constipation, Diarrhea, Change in bowel habits - Genitourinary Genitourinary: reports: Flank pain. denies: Dysuria, Frequency, Urgency, Hematuria Prior Level of Functionality: stable Exam - Vital Signs Reviewed Vital Signs: Yes Vital Signs: Vital Signs x48h Temp Pulse Resp BP Pulse Ox 12/18/22 23:00 106 H 17 108/83 H 100 12/18/22 21:24 37.2 C 114 H 20 123/85 H 99 12/18/22 19:24 109 H 19 122/68 100 12/18/22 19:19 37.2 C 115 H 22 116/62 100 - Physical Exam General Appearance: positive: No acute distress, Alert Eyes Bilateral: positive: Normal inspection ENT: positive: ENT inspection nml Respiratory: positive: No respiratory distress Cardiovascular: positive: Tachycardia Abdomen: positive: Other (unable to examine, telemedicine) Skin: positive: Color nml, No rash Comments/Other: : urine yellow/clear in mathews per ER provider Sepsis Event Note (H) - Evaluation Current Stage of Sepsis: Sepsis Possible source of Sepsis: positive: Genitourinary - Sepsis Criteria Sepsis Criteria: Recorded Heart Rate greater than 90 bpm, WBC count greater than 12,000 or less than 4000 Conclusion/Plan - Lab Results Fish Bones: 12/18/22 19:42 12/18/22 19:42 - Diagnostic Imaging Results Diagnostic Imaging Results: positive: Final report reviewed - Other Other Results/Comments: Assessment/Plan: Sepsis secondary to bilateral pyelonephritis and emphysematous cystitis -ER provider has discussed with urology at -No indication for transfer or urologic intervention at this time per Dr Gray -Mathews catheter, placed in ER -IV abx, recommend IV levaquine (pt w PCN allergy) -Trend labs WBC 18, afebrile, mild tachy, lactic acid 0.7 -Continue IV fluids for hydration Tobacco use -Cessation counseling -Pt agreeable to nicotine patch, ordered DVT ppx: Lovenox sc Full code
[2022-12-18] MEDS ORDERED: SODIUM CHLORIDE FLUSH 0.9% 10 ML SYRINGE IVP PRN (23:53)
[2022-12-18] MEDS ORDERED: ONDANSETRON 4 MG/2 ML VIAL IVP PRN (23:53)
[2022-12-18] MEDS ORDERED: NICOTINE 14 MG PATCH TOP STA (23:57)
[2022-12-19] MEDS: SODIUM CHLORIDE 0.9% 1,000 ML IV SCH ×3 (00:33→19:23)
[2022-12-19] MEDS: SODIUM CHLORIDE FLUSH 0.9% 10 ML SYRINGE IVP SCH ×3 (00:39→17:01)
[2022-12-19] MEDS: HYDROcod/ACETAM 5/325 MG TABLET PO PRN ×5 (01:09→20:20)
[2022-12-19 06:24] LABS: BASOPHILS % (AUTO) 0.1 %; EOSINOPHILS % (AUTO) 0.5 %; HCT - HEMATOCRIT 33.3 % (37.0-47.0); HGB - HEMOGLOBIN 10.7 g/dL (12.0-16.0); LYMPHOCYTES % (AUTO) 11.5 %; MEAN CORPUSCULAR HGB CONC 32.1 g/dL (32.0-36.0); MEAN CORPUSCULAR VOLUME 93.3 fL (81.0-99.0); MEAN PLATELET VOLUME 9.9 fL (7.9-10.8); MONOCYTES % (AUTO) 17.2 %; NEUTROPHILS % (AUTO) 70.2 %; PLT - PLATELET COUNT 225 10^3/uL (130-450); RED BLOOD COUNT 3.57 10^6/uL (4.20-5.40); RED CELL DISTRIBUTION WIDTH 14.7 % (12.0-15.0); WHITE BLOOD COUNT 14.9 x10^3/uL (4.8-10.8)
[2022-12-19 06:36] LABS: CALCIUM 7.4 mg/dL (8.5-10.3); CREATININE 0.6 mg/dL (0.4-1.0); POTASSIUM 3.1 mmol/L (3.5-5.0)
[2022-12-19 06:40] LABS: ABNORMAL LYMPHS % (MANUAL) 0 %; BAND NEUTROPHILS % (MANUAL) 0 %
[2022-12-19] MEDS: HYDROmorphone 0.5 MG/0.5 ML SYRINGE IVP PRN ×2 (06:52→16:03)
[2022-12-19 06:54] LABS: DIFFERENTIAL COMMENT MANUAL DIFFERENTIAL; LYMPHOCYTES # (MANUAL) 1.5 10^3/uL (1.5-3.5); LYMPHOCYTES % (MANUAL) 10 %; MONOCYTES # (MANUAL) 1.8 10^3/uL (0.0-1.0); NEUTROPHILS # (MANUAL) 11.6 10^3/uL (1.5-6.6); PLATELET ESTIMATE, MANUAL NORMAL (130-450,000) (NORMAL); PLATELET MORPHOLOGY NORMAL APPEARANCE (NORMAL); RBC MORPHOLOGY (MULTIPLE) NORMAL APPEARANCE (NORMAL); WBC MORPHOLOGY (MULTIPLE) NORMAL APPEARANCE (NORMAL)
[2022-12-19] MEDS: ENOXAPARIN 40 MG/0.4 ML SYRINGE SUBQ SCH (09:05)
--- NOTE | 2022-12-19 10:39 | PHARMACY PROGRESS NOTE ---
- Best Possible Medication History Admit Date and Time: 12/18/22 7786 Processed by: Pharmacy Medication History completed: Yes Patient Interview: Completed (pt only takes APAP) As the person ultimately responsible for medication therapy, providers are able to order a medication from an existing home medication list in [facility] via the "Reconcile Routine" prior to Confirmation of that medication by production support manager. Such practice is discouraged except when the physician, in their clinical judgment, deems that a medical need exists for a medication without regard to previous use.
[2022-12-19] MEDS: POTASSIUM CHLORIDE 10 MEQ CAPSULE PO SCH (12:03)
[2022-12-19] MEDS: LACTOBACILLUS RHAMNOSUS GG CAPSULE PO SCH (12:03)
--- NOTE | 2022-12-19 12:44 | PROVIDER PROGRESS NOTE ---
Subjective - Prog Note Date Prog Note Date: 12/19/22 Prog Note Time: 12:46 - Subjective Pt reports feeling: Improved Subjective: Her main concern is having her significant other be able to stay the night. She says that she hates being by herself and she likes the idea of her boyfriend, boyfriend's mother, and boyfriend sister being able to come visit her. Nausea and vomiting have gone away. She still has lower abdominal aching over the pelvis region. No flank pain. She is able to keep food down. She thinks its weird to have the Maxwell in place without having to think about urinating Current Medications - Current Medications Current Medications: Active Medications Hydrocodone Bitart/Acetaminophen (Hydrocod/Acetam 5/325 Mg Tablet) 1 tab PO Q4HR PRN PRN Reason: Pain 5 to 7 Last Admin: 12/19/22 09:04 Dose: 1 tab Enoxaparin Sodium (Enoxaparin 40 Mg/0.4 Ml Syringe) 40 mg SUBQ DAILY [facility] Last Admin: 12/19/22 09:05 Dose: 40 mg Hydromorphone HCl (Hydromorphone 0.5 Mg/0.5 Ml Syringe) 0.5 mg IVP Q2H PRN PRN Reason: Pain 8 to 10 Last Admin: 12/19/22 06:52 Dose: 0.5 mg Sodium Chloride (Normal Saline 0.9%) 1,000 mls @ 100 mls/hr IV .Q10H [facility] Last Admin: 12/19/22 12:30 Dose: 100 mls/hr Levofloxacin (Levaquin 500 Mg/100 Ml) 500 mg in 100 mls @ 100 mls/hr IV Q24H [facility] Lactobacillus Rhamnosus (Lactobacillus Rhamnosus Gg Capsule) 1 cap PO DAILY [facility] Last Admin: 12/19/22 12:03 Dose: 1 cap Ondansetron HCl (Ondansetron 4 Mg/2 Ml Vial) 4 mg IVP Q6HR PRN PRN Reason: Nausea / Vomiting Potassium Chloride (Potassium Chloride 10 Meq Capsule) 30 meq PO DAILYWM [facility] Last Admin: 12/19/22 12:03 Dose: 30 meq Sodium Chloride (Sodium Chloride Flush 0.9% 10 Ml Syringe) 10 ml IVP PRN PRN PRN Reason: NEEDED PER PROVIDER ORDERS Sodium Chloride (Sodium Chloride Flush 0.9% 10 Ml Syringe) 10 ml IVP 0100,0 900,1700 [facility] Last Admin: 12/19/22 08:56 Dose: Not Given Acetaminophen [Pain Relief Extra Strength] 4 tab PO PRN PRN 12/19/22 Objective - Vital Signs/Intake & Output Reviewed Vital Signs: Yes Vital Signs: Vital Signs x48h Temp Pulse Resp BP 12/19/22 08:00 37.2 C 99 18 103/58 L Intake & Output: Intake & Output 12/16/22 12/17/22 12/18/22 12/19/22 23:59 23:59 23:59 23:59 Intake Total 1200.00 1791.667 Output Total 450 Balance 1200.00 1341.667 - Objective General Appearance: positive: No acute distress, Alert, Other (Very thin, white female, looks older than stated age, looks fatigued) Eyes Bilateral: positive: PERRL, EOMI ENT: positive: No signs of dehydration Neck: positive: No JVD. negative: Stiff neck Respiratory: positive: No respiratory distress. negative: Wheezes, Rales, Rhonchi Cardiovascular: positive: Regular rate & rhythm. negative: Tachycardia (This morning she finally dropped her pulse rate below 100) Abdomen: positive: No organomegaly, Nml bowel sounds, Tenderness (Suprapubic region). negative: Guarding, Rebound Skin: positive: Warm, Dry, Pallor. negative: Diaphoresis Extremities: positive: Full ROM, No pedal edema Neurologic/Psychiatric: positive: Oriented x3, CN's nml (2-12), Motor nml - Lab Results Fish Bones: 12/19/22 05:25 12/19/22 05:25 Other Labs: Lab Results x24hrs 12/19/22 12/19/22 12/18/22 Range/Units 05:25 05:25 21:35 WBC 14.9 H (4.8-10.8) x10^3/uL RBC 3.57 L (4.20-5.40) 10^6/uL Hgb 10.7 L (12.0-16.0) g/dL Hct 33.3 L (37.0-47.0) % MCV 93.3 (81.0-99.0) fL MCH 30.0 (27.0-31.0) pg MCHC 32.1 (32.0-36.0) g/dL RDW 14.7 (12.0-15.0) % Plt Count 225 (130-450) 10^3/uL MPV 9.9 (7.9-10.8) fL Neut # (Auto) Not Reportable Lymph # (Auto) Not Reportable [place] # (Auto) Not Reportable Eos # (Auto) Not Reportable Baso # (Auto) Not Reportable Absolute Nucleated RBC Not Reportable Total Counted 100 Band Neuts % (Manual) 0 (0 - 10) % Abnorm Lymph % (Manual) 0 % Nucleated RBC % Not Reportable Neutrophils # (Manual) 11.6 H (1.5-6.6) 10^3/uL Lymphocytes # (Manual) 1.5 (1.5-3.5) 10^3/uL Monocytes # (Manual) 1.8 H (0.0-1.0) 10^3/uL Eosinophils # (Manual) 0.0 (0-0.7) 10^3/uL Basophils # (Manual) 0.0 (0-0.1) 10^3/uL Differential Comment MANUAL DIFFERENTIAL WBC Morphology NORMAL APPEARANCE (NORMAL) Platelet Estimate NORMAL (130-450,000) (NORMAL) Platelet Morphology NORMAL APPEARANCE (NORMAL) RBC Morph Micro Appear NORMAL APPEARANCE (NORMAL) Sodium 136 (135-145) mmol/L Potassium 3.1 L (3.5-5.0) mmol/L Chloride 107 (101-111) mmol/L Carbon Dioxide 24 (21-32) mmol/L Anion Gap 5.0 L (6-13) BUN 6 (6-20) mg/dL Creatinine 0.6 (0.4-1.0) mg/dL Estimated GFR (MDRD) 114 (>89) Glucose 102 H (70-100) mg/dL Lactic Acid (0.5-2.2) mmol/L Calcium 7.4 L (8.5-10.3) mg/dL Total Bilirubin (0.2-1.0) mg/dL AST (10-42) IU/L ALT (10-60) IU/L Alkaline Phosphatase (42-121) IU/L Total Protein (6.7-8.2) g/dL Albumin (3.2-5.5) g/dL Globulin (2.1-4.2) g/dL Albumin/Globulin Ratio (1.0-2.2) Lipase (22-51) U/L Urine Color Urine Clarity (CLEAR) Urine pH (5.0-7.5) PH Ur Specific [place] (1.002-1.030) Urine Protein (NEGATIVE) mg/dL Urine Glucose (UA) (NEGATIVE) mg/dL Urine Ketones (NEGATIVE) mg/dL Urine Occult Blood (NEGATIVE) Urine Nitrite (NEGATIVE) Urine Bilirubin (NEGATIVE) Urine Urobilinogen (NORMAL) E.U./dL Ur Leukocyte Esterase (NEGATIVE) Urine RBC (0-5) /HPF Urine WBC (0-5) /HPF Ur Squamous Epith Cells (<= Few) Urine Bacteria (None Seen) /HPF Ur Microscopic Review Urine Culture Comments Urine HCG, Qual Nasal Adenovirus (PCR) NOT DETECTED Nasal B. parapertussis DNA (PCR) NOT DETECTED Nasal Coronavir 229E PCR NOT DETECTED Nasal Coronavir HKU1 PCR NOT DETECTED Nasal Coronavir NL63 PCR NOT DETECTED Nasal Coronavir OC43 PCR NOT DETECTED Nasal Enterovir/Rhinovir PCR NOT DETECTED Nasal Influenza B PCR NOT DETECTED Nasal Influenza A PCR NOT DETECTED Nasal Parainfluen 1 PCR NOT DETECTED Nasal Parainfluen 2 PCR NOT DETECTED Nasal Parainfluen 3 PCR NOT DETECTED Nasal Parainfluen 4 PCR NOT DETECTED Nasal RSV (PCR) NOT DETECTED Nasal B.pertussis DNA PCR NOT DETECTED Nasal C.pneumoniae (PCR) NOT DETECTED Pratik Human Metapneumo PCR NOT DETECTED Nasal M.pneumoniae (PCR) NOT DETECTED Nasal SARS-CoV-2 (PCR) NOT DETECTED 12/18/22 12/18/22 12/18/22 Range/Units 21:30 20:26 19:42 WBC (4.8-10.8) x10^3/uL RBC (4.20-5.40) 10^6/uL Hgb (12.0-16.0) g/dL Hct (37.0-47.0) % MCV (81.0-99.0) fL MCH (27.0-31.0) pg MCHC (32.0-36.0) g/dL RDW (12.0-15.0) % Plt Count (130-450) 10^3/uL MPV (7.9-10.8) fL Neut # (Auto) Lymph # (Auto) [place] # (Auto) Eos # (Auto) Baso # (Auto) Absolute Nucleated RBC Total Counted Band Neuts % (Manual) (0 - 10) % Abnorm Lymph % (Manual) % Nucleated RBC % Neutrophils # (Manual) (1.5-6.6) 10^3/uL Lymphocytes # (Manual) (1.5-3.5) 10^3/uL Monocytes # (Manual) (0.0-1.0) 10^3/uL Eosinophils # (Manual) (0-0.7) 10^3/uL Basophils # (Manual) (0-0.1) 10^3/uL Differential Comment WBC Morphology (NORMAL) Platelet Estimate (NORMAL) Platelet Morphology (NORMAL) RBC Morph Micro Appear (NORMAL) Sodium 132 L (135-145) mmol/L Potassium 3.7 (3.5-5.0) mmol/L Chloride 96 L (101-111) mmol/L Carbon Dioxide 26 (21-32) mmol/L Anion Gap 10.0 (6-13) BUN 5 L (6-20) mg/dL Creatinine 0.7 (0.4-1.0) mg/dL Estimated GFR (MDRD) 96 (>89) Glucose 100 (70-100) mg/dL Lactic Acid 0.7 (0.5-2.2) mmol/L Calcium 8.6 (8.5-10.3) mg/dL Total Bilirubin 0.7 (0.2-1.0) mg/dL AST 18 (10-42) IU/L ALT 40 (10-60) IU/L Alkaline Phosphatase 94 (42-121) IU/L Total Protein 7.3 (6.7-8.2) g/dL Albumin 3.2 (3.2-5.5) g/dL Globulin 4.1 (2.1-4.2) g/dL Albumin/Globulin Ratio 0.8 L (1.0-2.2) Lipase 20 L (22-51) U/L Urine Color YELLOW Urine Clarity CLOUDY (CLEAR) Urine pH 7.0 (5.0-7.5) PH Ur Specific [place] 1.010 (1.002-1.030) Urine Protein 30 H (NEGATIVE) mg/dL Urine Glucose (UA) NEGATIVE (NEGATIVE) mg/dL Urine Ketones NEGATIVE (NEGATIVE) mg/dL Urine Occult Blood SMALL H (NEGATIVE) Urine Nitrite NEGATIVE (NEGATIVE) Urine Bilirubin NEGATIVE (NEGATIVE) Urine Urobilinogen 0.2 (NORMAL) (NORMAL) E.U./dL Ur Leukocyte Esterase MODERATE H (NEGATIVE) Urine RBC 6-10 H (0-5) /HPF Urine WBC >25 H (0-5) /HPF Ur Squamous Epith Cells FEW Squamous (<= Few) Urine Bacteria Moderate H (None Seen) /HPF Ur Microscopic Review INDICATED Urine Culture Comments INDICATED Urine HCG, Qual NEGATIVE Nasal Adenovirus (PCR) Nasal B. parapertussis DNA (PCR) Nasal Coronavir 229E PCR Nasal Coronavir HKU1 PCR Nasal Coronavir NL63 PCR Nasal Coronavir OC43 PCR Nasal Enterovir/Rhinovir PCR Nasal Influenza B PCR Nasal Influenza A PCR Nasal Parainfluen 1 PCR Nasal Parainfluen 2 PCR Nasal Parainfluen 3 PCR Nasal Parainfluen 4 PCR Nasal RSV (PCR) Nasal B.pertussis DNA PCR Nasal C.pneumoniae (PCR) Pratik Human Metapneumo PCR Nasal M.pneumoniae (PCR) Nasal SARS-CoV-2 (PCR) 12/18/22 Range/Units 19:42 WBC 18.0 H (4.8-10.8) x10^3/uL RBC 4.47 (4.20-5.40) 10^6/uL Hgb 13.3 (12.0-16.0) g/dL Hct 41.2 (37.0-47.0) % MCV 92.2 (81.0-99.0) fL MCH 29.8 (27.0-31.0) pg MCHC 32.3 (32.0-36.0) g/dL RDW 14.6 (12.0-15.0) % Plt Count 318 (130-450) 10^3/uL MPV 9.5 (7.9-10.8) fL Neut # (Auto) Not Reportable Lymph # (Auto) Not Reportable [place] # (Auto) Not Reportable Eos # (Auto) Not Reportable Baso # (Auto) Not Reportable Absolute Nucleated RBC Not Reportable Total Counted 100 Band Neuts % (Manual) 2 (0 - 10) % Abnorm Lymph % (Manual) 0 % Nucleated RBC % Not Reportable Neutrophils # (Manual) 14.4 H (1.5-6.6) 10^3/uL Lymphocytes # (Manual) 1.8 (1.5-3.5) 10^3/uL Monocytes # (Manual) 1.8 H (0.0-1.0) 10^3/uL Eosinophils # (Manual) 0.0 (0-0.7) 10^3/uL Basophils # (Manual) 0.0 (0-0.1) 10^3/uL Differential Comment MANUAL DIFFERENTIAL WBC Morphology (NORMAL) Platelet Estimate NORMAL (130-450,000) (NORMAL) Platelet Morphology NORMAL APPEARANCE (NORMAL) RBC Morph Micro Appear NORMAL APPEARANCE (NORMAL) Sodium (135-145) mmol/L Potassium (3.5-5.0) mmol/L Chloride (101-111) mmol/L Carbon Dioxide (21-32) mmol/L Anion Gap (6-13) BUN (6-20) mg/dL Creatinine (0.4-1.0) mg/dL Estimated GFR (MDRD) (>89) Glucose (70-100) mg/dL Lactic Acid (0.5-2.2) mmol/L Calcium (8.5-10.3) mg/dL Total Bilirubin (0.2-1.0) mg/dL AST (10-42) IU/L ALT (10-60) IU/L Alkaline Phosphatase (42-121) IU/L Total Protein (6.7-8.2) g/dL Albumin (3.2-5.5) g/dL Globulin (2.1-4.2) g/dL Albumin/Globulin Ratio (1.0-2.2) Lipase (22-51) U/L Urine Color Urine Clarity (CLEAR) Urine pH (5.0-7.5) PH Ur Specific [place] (1.002-1.030) Urine Protein (NEGATIVE) mg/dL Urine Glucose (UA) (NEGATIVE) mg/dL Urine Ketones (NEGATIVE) mg/dL Urine Occult Blood (NEGATIVE) Urine Nitrite (NEGATIVE) Urine Bilirubin (NEGATIVE) Urine Urobilinogen (NORMAL) E.U./dL Ur Leukocyte Esterase (NEGATIVE) Urine RBC (0-5) /HPF Urine WBC (0-5) /HPF Ur Squamous Epith Cells (<= Few) Urine Bacteria (None Seen) /HPF Ur Microscopic Review Urine Culture Comments Urine HCG, Qual Nasal Adenovirus (PCR) Nasal B. parapertussis DNA (PCR) Nasal Coronavir 229E PCR Nasal Coronavir HKU1 PCR Nasal Coronavir NL63 PCR Nasal Coronavir OC43 PCR Nasal Enterovir/Rhinovir PCR Nasal Influenza B PCR Nasal Influenza A PCR Nasal Parainfluen 1 PCR Nasal Parainfluen 2 PCR Nasal Parainfluen 3 PCR Nasal Parainfluen 4 PCR Nasal RSV (PCR) Nasal B.pertussis DNA PCR Nasal C.pneumoniae (PCR) Pratik Human Metapneumo PCR Nasal M.pneumoniae (PCR) Nasal SARS-CoV-2 (PCR) ABX Reporting Has patient been on IV antibiotics over the past 48 hours?: Yes Sepsis Event Note (H) - Evaluation Current Stage of Sepsis: Sepsis Possible source of Sepsis: positive: Genitourinary - Sepsis Criteria Sepsis Criteria: Recorded Heart Rate greater than 90 bpm, WBC count greater than 12,000 or less than 4000, MAP less than 65 mmHg Assessment/Plan - Problem List (1) Sepsis Impression: In reviewing the medical record her systolic blood pressure is as high as 128 to 135. With this admission she is dropped to 108 systolic. This morning she is 103. It is good to note that her tachycardia is slowing down. Her white cell count is coming down. But still elevated. Urine culture pending No blood cultures done She received 1 dose of ceftriaxone last night. And then on admission was changed to Levaquin and she is received 1 dose of Levaquin. Levaquin Day #2/. Plan: Continue with Maxwell for today. Once white cell count has dropped to normal will discontinue. Qualifiers: Sepsis type: sepsis due to unspecified organism Sepsis acute organ dysfunction status: without acute organ dysfunction Qualified Code(s): A41.9 - Sepsis, unspecified organism (2) Emphysematous cystitis Impression: As per the ER notes: the case was discussed with Dr. Boy Gray, the on-call urology attending down at [facility]. Images were also pushed to their facility for viewing. Dr. Gray did state that although in theory emphysematous cystitis could result in the need for surgery, that this is exceedingly rare and he would estimate about 1 in the thousand cases actually end up needing this. He stated that we could continue the IV Levaquin or give IV Rocephin, and and that the patient should continue to have a Maxwell throughout her stay to monitor urine output. He did not feel the patient needed transfer to a facility with a urologist and felt she could stay here for IV antibiotics. However, he did recommend admission to the hospital. I did reevaluate the patient, who appeared to not feel well, but was nontoxic. She had put out about 300 cc of urine into the Maxwell, and the urine was no, but clear. As per above for sepsis treatment, source of her sepsis is this emphysematous cystitis. Urine culture pending. She is on Levaquin. Probiotics will be started today. Continue Maxwell until white cell count normal. Then change her to oral antibiotics and sent home. (3) Tobacco abuse Impression: Nicotine patch started in the ER. I will order nicotine patch for MedSurg (4) Hypokalemia Impression: Oral supplementation. Recheck tomorrow
[2022-12-19] MEDS: NICOTINE 7 MG PATCH TOP SCH (13:06)
[2022-12-19 13:45] LABS: MUDS CUTOFF CONCENTRATIONS CUTOFF CONC BELOW:
[2022-12-19 14:00] LABS: AMPHETAMINE SCREEN,URINE POSITIVE (NEGATIVE); BARBITURATE SCREEN,UR NEGATIVE (NEGATIVE); BENZODIAZEPINES SCREEN, URINE NEGATIVE (NEGATIVE); COCAINE SCREEN URINE NEGATIVE (NEGATIVE); METHADONE SCREEN, URINE NEGATIVE (NEGATIVE); METHAMPHETAMINES SCREEN, URINE POSITIVE (NEGATIVE); OPIATE SCREEN, URINE POSITIVE (NEGATIVE); OXYCODONE SCREEN, URINE NEGATIVE (NEGATIVE); PROPOXYPHENE SCREEN, URINE NEGATIVE (NEGATIVE); THC CANNABINOID SCREEN, URINE POSITIVE (NEGATIVE); TRICYCLIC ANTIDEPRESSANT,URINE NEGATIVE (NEGATIVE)
[2022-12-19] MEDS: levoFLOXacin 500 MG/100 ML 500 MG/100 ML BAG IV SCH (20:16)
[2022-12-20] MEDS: HYDROmorphone 0.5 MG/0.5 ML SYRINGE IVP PRN ×2 (01:21→17:56)
[2022-12-20] MEDS: SODIUM CHLORIDE FLUSH 0.9% 10 ML SYRINGE IVP SCH ×3 (01:22→16:21)
[2022-12-20] MEDS: SODIUM CHLORIDE 0.9% 1,000 ML IV SCH ×2 (06:05→16:21)
[2022-12-20] MEDS: NICOTINE 7 MG PATCH TOP SCH (08:06)
[2022-12-20] MEDS: LACTOBACILLUS RHAMNOSUS GG CAPSULE PO SCH (08:06)
[2022-12-20] MEDS: POTASSIUM CHLORIDE 10 MEQ CAPSULE PO SCH (08:06)
[2022-12-20] MEDS: ENOXAPARIN 40 MG/0.4 ML SYRINGE SUBQ SCH (08:06)
[2022-12-20 11:16] LABS: BASOPHILS % (AUTO) 0.2 %; EOSINOPHILS % (AUTO) 0.5 %; HCT - HEMATOCRIT 37.1 % (37.0-47.0); HGB - HEMOGLOBIN 11.8 g/dL (12.0-16.0); LYMPHOCYTES % (AUTO) 14.8 %; MEAN CORPUSCULAR HEMOGLOBIN 29.6 pg (27.0-31.0); MEAN CORPUSCULAR HGB CONC 31.8 g/dL (32.0-36.0); MEAN CORPUSCULAR VOLUME 93.2 fL (81.0-99.0); MEAN PLATELET VOLUME 9.4 fL (7.9-10.8); MONOCYTES % (AUTO) 12.4 %; NEUTROPHILS % (AUTO) 71.5 %; PLT - PLATELET COUNT 313 10^3/uL (130-450); RED BLOOD COUNT 3.98 10^6/uL (4.20-5.40); RED CELL DISTRIBUTION WIDTH 14.9 % (12.0-15.0)
[2022-12-20 11:22] LABS: ABNORMAL LYMPHS % (MANUAL) 0 %; BAND NEUTROPHILS % (MANUAL) 0 %
[2022-12-20 11:42] LABS: EOSINOPHILS # (MANUAL) 0.3 10^3/uL (0-0.7); LYMPHOCYTES # (MANUAL) 2.4 10^3/uL (1.5-3.5); LYMPHOCYTES % (MANUAL) 17 %; MONOCYTES # (MANUAL) 1.3 10^3/uL (0.0-1.0); NEUTROPHILS # (MANUAL) 10.1 10^3/uL (1.5-6.6)
[2022-12-20 11:43] LABS: DIFFERENTIAL COMMENT MANUAL DIFFERENTIAL; PLATELET ESTIMATE, MANUAL NORMAL (130-450,000) (NORMAL); PLATELET MORPHOLOGY NORMAL APPEARANCE (NORMAL); RBC MORPHOLOGY (MULTIPLE) NORMAL APPEARANCE (NORMAL)
[2022-12-20] MEDS ORDERED: ACETAMINOPHEN 325 MG TABLET PO PRN (15:10)
--- NOTE | 2022-12-20 18:04 | PROVIDER PROGRESS NOTE ---
Assessment/Plan - Problem List (1) Emphysematous cystitis Assessment/Plan: From the ER notes: the case was discussed with Dr. Boy Gray, the on-call urology attending down at [facility]. Images were also pushed to their facility for viewing. Dr. Gray did state that although in theory emphysematous cystitis could result in the need for surgery, that this is exceedingly rare and he would estimate about 1 in the thousand cases actually end up needing this. He stated that we could continue the IV Levaquin or give IV Rocephin, and and that the patient should continue to have a Maxwell throughout her stay to monitor urine output. He did not feel the patient needed transfer to a facility with a urologist and felt she could stay here for IV antibiotics. However, he did recommend admission to the hospital. I did reevaluate the patient, who appeared to not feel well, but was nontoxic. She had put out about 300 cc of urine into the Maxwell, and the urine was clear. She is on Levaquin. Probiotics also started . Plan: Continue Maxwell until white cell count is normal. Will then change her to oral antibiotics and send home. I reviewed this plan today with the patient and her significant other, who was in the room at bedside (2) Pyelonephritis Impression: As in #1 (3) E coli UTI Impression: As per micrbiology report today. The sens are still pending. Plan: Will tailor to po antibx based on this E coli's sensitivites (4) Methamphetamine use Impression: As per tox screen done after admission. Plan: Drug use should be admonished (5) Tobacco abuse Impression: Plan: Nicotine patch started in the ER and we have continued it (6) Hypokalemia Impression: Replaced for K of 3.1 yesterday, but no BMP was ordered to be rechecked today, by last pprovider. Plan: We will recheck BMP before [facility]. - Current Meds Current Meds: Current Medications Generic Name Dose Route Start Last Admin Trade Name Freq PRN Reason Stop Dose Admin Hydrocodone Bitart/Acetaminophen 1 tab 12/18/22 23:53 12/19/22 20:20 Hydrocod/Acetam 5/325 Mg Tablet PO 1 tab Q4HR PRN Administration Pain 5 to 7 Enoxaparin Sodium 40 mg 12/19/22 09:00 12/20/22 08:06 Enoxaparin 40 Mg/0.4 Ml Syringe SUBQ 40 mg DAILY [facility] Administration Hydromorphone HCl 0.5 mg 12/18/22 23:53 12/20/22 17:56 Hydromorphone 0.5 Mg/0.5 Ml Syringe IVP 0.5 mg Q2H PRN Administration Pain 8 to 10 Sodium Chloride 1,000 mls @ 100 mls/hr 12/18/22 23:45 12/20/22 16:21 Normal Saline 0.9% IV 100 mls/hr .Q10H [facility] Administration Levofloxacin 500 mg in 100 mls @ 100 mls/hr 12/19/22 21:00 12/19/22 21:16 Levaquin 500 Mg/100 Ml IV Infused Q24H [facility] Infusion Lactobacillus Rhamnosus 1 cap 12/19/22 11:00 12/20/22 08:06 Lactobacillus Rhamnosus Gg Capsule PO 1 cap DAILY [facility] Administration Nicotine 1 patch 12/19/22 13:00 12/20/22 08:06 Nicotine 7 Mg Patch TOP Not Given DAILY [facility] Potassium Chloride 30 meq 12/19/22 11:00 12/20/22 08:06 Potassium Chloride 10 Meq Capsule PO 30 meq DAILYWM [facility] Administration Sodium Chloride 10 ml 12/19/22 01:00 12/20/22 16:21 Sodium Chloride Flush 0.9% 10 Ml Syringe IVP 10 ml 0100,0900,1700 [facility] Administration - Lab Result Fish Bone Diagrams: 12/20/22 11:11 12/19/22 05:25 - Additional Planning My Orders: My Active Orders 12/20/22 15:10 Acetaminophen [Tylenol] 650 mg PO Q4HR PRN 12/20/22 21:00 Famotidine [Pepcid] 20 mg PO BID 12/21/22 05:00 CBC - COMP BLD CT W/AUTO DIFF [HEME] DAILYLAB Subjective - Subjective Patient Reports: Feeling Better, Resting Comfortably, No Complaints Objective Vital Signs: Vital Signs - 24 hr 12/20/22 12/20/22 12/20/22 00:00 08:04 15:29 Temperature 37.2 C 37 C 37.0 C Heart Rate [ 101 H 96 91 Brachial] Respiratory 18 16 16 Rate Blood Pressure 104/64 108/68 121/80 [Left Brachial artery] O2 Saturation 100 99 94 Oxygen O2 Source Room air I&O (Last 24 Hrs): Intake and Output Totals x24h 12/18/22 12/19/22 12/20/22 23:59 23:59 23:59 Intake Total 1200.00 3988.333 3191.667 Output Total 2150 4050 Balance 1200.00 1838.333 -858.333 General: Alert, Oriented x3 HEENT: Mucous membr. moist/pink, Other (Thin WF, poorly kempt, and has poor dentition) Neuro: Alert, Non Focal Cardiovascular: Regular rate Respiratory: No respiratory distress Abdomen: Soft Genitourinary: Other (Maxwell in place) Extremities: No edema - Results Results: Laboratory Results WBC 14.0 x10^3/uL (4.8-10.8) H 12/20/22 11:11 RBC 3.98 10^6/uL (4.20-5.40) L 12/20/22 11:11 Hgb 11.8 g/dL (12.0-16.0) L 12/20/22 11:11 Hct 37.1 % (37.0-47.0) 12/20/22 11:11 MCV 93.2 fL (81.0-99.0) 12/20/22 11:11 MCH 29.6 pg (27.0-31.0) 12/20/22 11:11 MCHC 31.8 g/dL (32.0-36.0) L 12/20/22 11:11 RDW 14.9 % (12.0-15.0) 12/20/22 11:11 Plt Count 313 10^3/uL (130-450) 12/20/22 11:11 MPV 9.4 fL (7.9-10.8) 12/20/22 11:11 Neut # (Auto) Not Reportable 12/20/22 11:11 Lymph # (Auto) Not Reportable 12/20/22 11:11 [place] # (Auto) Not Reportable 12/20/22 11:11 Eos # (Auto) Not Reportable 12/20/22 11:11 Baso # (Auto) Not Reportable 12/20/22 11:11 Absolute Nucleated RBC Not Reportable 12/20/22 11:11 Total Counted 100 12/20/22 11:11 Band Neuts % (Manual) 0 % (0-10) 12/20/22 11:11 Abnorm Lymph % (Manual) 0 % 12/20/22 11:11 Nucleated RBC % Not Reportable 12/20/22 11:11 Neutrophils # (Manual) 10.1 10^3/uL (1.5-6.6) H 12/20/22 11:11 Lymphocytes # (Manual) 2.4 10^3/uL (1.5-3.5) 12/20/22 11:11 Monocytes # (Manual) 1.3 10^3/uL (0.0-1.0) H 12/20/22 11:11 Eosinophils # (Manual) 0.3 10^3/uL (0-0.7) 12/20/22 11:11 Basophils # (Manual) 0.0 10^3/uL (0-0.1) 12/20/22 11:11 Differential Comment MANUAL DIFFERENTIAL 12/20/22 11:11 WBC Morphology NORMAL APPEARANCE (NORMAL) 12/19/22 05:25 Platelet Estimate NORMAL (130-450,000) (NORMAL) 12/20/22 11:11 Platelet Morphology NORMAL APPEARANCE (NORMAL) 12/20/22 11:11 RBC Morph Micro Appear NORMAL APPEARANCE (NORMAL) 12/20/22 11:11 Sodium 136 mmol/L (135-145) 12/19/22 05:25 Potassium 3.1 mmol/L (3.5-5.0) L 12/19/22 05:25 Chloride 107 mmol/L (101-111) 12/19/22 05:25 Carbon Dioxide 24 mmol/L (21-32) 12/19/22 05:25 Anion Gap 5.0 (6-13) L 12/19/22 05:25 BUN 6 mg/dL (6-20) 12/19/22 05:25 Creatinine 0.6 mg/dL (0.4-1.0) 12/19/22 05:25 Estimated GFR (MDRD) 114 (>89) 12/19/22 05:25 Glucose 102 mg/dL (70-100) H 12/19/22 05:25 Lactic Acid 0.7 mmol/L (0.5-2.2) 12/18/22 21:30 Calcium 7.4 mg/dL (8.5-10.3) L 12/19/22 05:25 Total Bilirubin 0.7 mg/dL (0.2-1.0) 12/18/22 19:42 AST 18 IU/L (10-42) 12/18/22 19:42 ALT 40 IU/L (10-60) 12/18/22 19:42 Alkaline Phosphatase 94 IU/L (42-121) 12/18/22 19:42 Total Protein 7.3 g/dL (6.7-8.2) 12/18/22 19:42 Albumin 3.2 g/dL (3.2-5.5) 12/18/22 19:42 Globulin 4.1 g/dL (2.1-4.2) 12/18/22 19:42 Albumin/Globulin Ratio 0.8 (1.0-2.2) L 12/18/22 19:42 Lipase 20 U/L (22-51) L 12/18/22 19:42 Urine Color YELLOW 12/18/22 20:26 Urine Clarity CLOUDY (CLEAR) 12/18/22 20:26 Urine pH 7.0 PH (5.0-7.5) 12/18/22 20:26 Ur Specific [place] 1.010 (1.002-1.030) 12/18/22 20:26 Urine Protein 30 mg/dL (NEGATIVE) H 12/18/22 20:26 Urine Glucose (UA) NEGATIVE mg/dL (NEGATIVE) 12/18/22 20: Urine Ketones NEGATIVE mg/dL (NEGATIVE) 12/18/22 20:26 Urine Occult Blood SMALL (NEGATIVE) H 12/18/22 20:26 Urine Nitrite NEGATIVE (NEGATIVE) 12/18/22 20: Urine Bilirubin NEGATIVE (NEGATIVE) 12/18/22 20: Urine Urobilinogen 0.2 (NORMAL) E.U./dL (NORMAL) 12/18/22 20:26 Ur Leukocyte Esterase MODERATE (NEGATIVE) H 12/18/22 20:26 Urine RBC 6-10 /HPF (0-5) H 12/18/22 20:26 Urine WBC >25 /HPF (0-5) H 12/18/22 20:26 Ur Squamous Epith Cells FEW Squamous (<= Few) 12/18/22 20:26 Urine Bacteria Moderate /HPF (None Seen) H 12/18/22 20:26 Ur Microscopic Review INDICATED 12/18/22 20:26 Urine Culture Comments INDICATED 12/18/22 20:26 Urine HCG, Qual NEGATIVE 12/18/22 20:26 Nasal Adenovirus (PCR) NOT DETECTED 12/18/22 21:35 Nasal B. parapertussis DNA (PCR) NOT DETECTED 12/18/22 21:35 Nasal Coronavir 229E PCR NOT DETECTED 12/18/22 21:35 Nasal Coronavir HKU1 PCR NOT DETECTED 12/18/22 21:35 Nasal Coronavir NL63 PCR NOT DETECTED 12/18/22 21:35 Nasal Coronavir OC43 PCR NOT DETECTED 12/18/22 21:35 Nasal Enterovir/Rhinovir PCR NOT DETECTED 12/18/22 21:35 Nasal Influenza B PCR NOT DETECTED 12/18/22 21:35 Nasal Influenza A PCR NOT DETECTED 12/18/22 21:35 Nasal Parainfluen 1 PCR NOT DETECTED 12/18/22 21:35 Nasal Parainfluen 2 PCR NOT DETECTED 12/18/22 21:35 Nasal Parainfluen 3 PCR NOT DETECTED 12/18/22 21:35 Nasal Parainfluen 4 PCR NOT DETECTED 12/18/22 21:35 Nasal RSV (PCR) NOT DETECTED 12/18/22 21:35 Nasal B.pertussis DNA PCR NOT DETECTED 12/18/22 21:35 Nasal C.pneumoniae (PCR) NOT DETECTED 12/18/22 21:35 Pratik Human Metapneumo PCR NOT DETECTED 12/18/22 21:35 Nasal M.pneumoniae (PCR) NOT DETECTED 12/18/22 21:35 Nasal SARS-CoV-2 (PCR) NOT DETECTED 12/18/22 21:35 Urine Opiates Screen POSITIVE (NEGATIVE) H 12/19/22 13:20 Ur Oxycodone Screen NEGATIVE (NEGATIVE) 12/19/22 13:20 Urine Methadone Screen NEGATIVE (NEGATIVE) 12/19/22 13:20 Ur Propoxyphene Screen NEGATIVE (NEGATIVE) 12/19/22 13:20 Ur Barbiturates Screen NEGATIVE (NEGATIVE) 12/19/22 13:20 Ur Tricyclics Screen NEGATIVE (NEGATIVE) 12/19/22 13:20 Ur Phencyclidine Scrn NEGATIVE (NEGATIVE) 12/19/22 13:20 Ur Amphetamine Screen POSITIVE (NEGATIVE) H 12/19/22 13:20 U Methamphetamines Scrn POSITIVE (NEGATIVE) H 12/19/22 13:20 U Benzodiazepines Scrn NEGATIVE (NEGATIVE) 12/19/22 13:20 Urine Cocaine Screen NEGATIVE (NEGATIVE) 12/19/22 13:20 U Cannabinoids Screen POSITIVE (NEGATIVE) H 12/19/22 13:20 Sepsis Event Note (H) - Evaluation Current Stage of Sepsis: Sepsis Possible source of Sepsis: positive: Genitourinary - Sepsis Criteria Sepsis Criteria: Recorded Heart Rate greater than 90 bpm, WBC count greater than 12,000 or less than 4000, MAP less than 65 mmHg
[2022-12-20] MEDS: HYDROcod/ACETAM 5/325 MG TABLET PO PRN (21:08)
[2022-12-20] MEDS: levoFLOXacin 500 MG/100 ML 500 MG/100 ML BAG IV SCH (21:08)
[2022-12-20] MEDS: FAMOTIDINE 20 MG TABLET PO SCH (21:08)
[2022-12-21 05:04] LABS: BASOPHILS % (AUTO) 0.3 %; HCT - HEMATOCRIT 33.3 % (37.0-47.0); HGB - HEMOGLOBIN 10.8 g/dL (12.0-16.0); LYMPHOCYTES % (AUTO) 20.3 %; MEAN CORPUSCULAR HEMOGLOBIN 29.8 pg (27.0-31.0); MEAN CORPUSCULAR HGB CONC 32.4 g/dL (32.0-36.0); MEAN PLATELET VOLUME 9.5 fL (7.9-10.8); NEUTROPHILS % (AUTO) 66.6 %; PLT - PLATELET COUNT 311 10^3/uL (130-450); RED BLOOD COUNT 3.62 10^6/uL (4.20-5.40); RED CELL DISTRIBUTION WIDTH 14.8 % (12.0-15.0); WHITE BLOOD COUNT 11.5 x10^3/uL (4.8-10.8)
[2022-12-21 05:13] LABS: BAND NEUTROPHILS % (MANUAL) 0 %
[2022-12-21 05:25] LABS: ABNORMAL LYMPHS % (MANUAL) 1 %; DIFFERENTIAL COMMENT MANUAL DIFFERENTIAL; EOSINOPHILS # (MANUAL) 0.2 10^3/uL (0-0.7); LYMPHOCYTES # (MANUAL) 2.3 10^3/uL (1.5-3.5); LYMPHOCYTES % (MANUAL) 19 %; MONOCYTES # (MANUAL) 0.2 10^3/uL (0.0-1.0); NEUTROPHILS # (MANUAL) 8.7 10^3/uL (1.5-6.6); PLATELET ESTIMATE, MANUAL NORMAL (130-450,000) (NORMAL); PLATELET MORPHOLOGY NORMAL APPEARANCE (NORMAL); RBC MORPHOLOGY (MULTIPLE) NORMAL APPEARANCE (NORMAL); WBC MORPHOLOGY (MULTIPLE) NORMAL APPEARANCE (NORMAL)
[2022-12-21] MEDS: SODIUM CHLORIDE FLUSH 0.9% 10 ML SYRINGE IVP SCH ×2 (06:16→08:32)
[2022-12-21] MEDS: SODIUM CHLORIDE 0.9% 1,000 ML IV SCH ×2 (06:16→08:32)
[2022-12-21] MEDS: ENOXAPARIN 40 MG/0.4 ML SYRINGE SUBQ SCH (08:32)
[2022-12-21] MEDS: LACTOBACILLUS RHAMNOSUS GG CAPSULE PO SCH (08:32)
[2022-12-21] MEDS: POTASSIUM CHLORIDE 10 MEQ CAPSULE PO SCH (08:32)
[2022-12-21] MEDS: FAMOTIDINE 20 MG TABLET PO SCH (08:32)
[2022-12-21] MEDS: NICOTINE 7 MG PATCH TOP SCH (08:32)
--- NOTE | 2022-12-21 09:30 | Discharge Plan ---
Discharge Plan Problem Reviewed?: Yes Disposition: Home, Self Care Condition: Stable Prescriptions: L. 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 This means that you had an infection that caused gas buildup within the wall of your urinary bladder and the infection had also spread up to your kidneys. You received several days of IV antibiotics and bladder drainage with a Maxwell catheter. You are being discharged home today with a prescription to take oral antibiotics for several more days. The prescription was electronically sent to your [facility] pharmacy in [place], along with a probiotic tablet to prevent diarrhea. Please stay well hydrated. You should stop using Methamphetamine which showed up on your toxicology screen. Plan of Treatment: As above. Care Goals: Improvement in symptoms and stabilization are the goals. Assessment: The patient understands the instructions. Additional Instructions or Follow Up instructions: If you have new or worsening symptoms, call your Primary Care Provider for advice or come to the ER. No Smoking: If you smoke, Please STOP! Call for help.
--- NOTE | 2022-12-21 10:01 | DISCHARGE SUMMARY ---
Discharge Summary Admit Date: 12/18/22 Discharge Date: 12/21/22 Discharging Provider: Dr Kim Stewart Primary Care Provider: None Condition at Discharge: Stable Discharge Disposition: 01 Home, Self Care - HPI History of Present Illness: Ms Breaux is a 32 yo F without pertinent medical history presents to ER with c/o 4-5 days of abd pain, flank pain, poor appetite. Pt also had nausea and vomiting today. She denies cp, sob, cough, fevers, chills, hematuria, dysuria. No changes in bowel or bladder habits. Denies prior history of UTI. No prior surgical history. Denies sick contacts. Smokes tobacco daily 1 pack / 3 days. Her tox screen came back (+) for meth, opiates and marijuana. Her WBC was elevated at 18 with 2% Bands, and she had an abnormal U/A consistent with UTI. CT of abd/pelvis imaging showed bilateral pyelonephritis and emphysematous cystitis. The ER provider discussed the case with Urology at , who advised Maxwell for decompression, iv antibiotics and Inpatient admission. - HOSPITAL COURSE Hospital Course: (1) Sepsis (without acute organ dysfunction Qualified Code(s): A41.9) She had a low BP, was tachycardic and WBC elevated. We treated the underlying infection and gave IV fluids. Her vital signs and WBC improved. (2) Emphysematous cystitis From the ER notes: the case was discussed with Dr. Boy Gray, the on-call urology attending at [facility]. Images were also pushed to their facility for viewing. Dr. Gray did state that although in theory emphysematous cystitis could result in the need for surgery, that this is exceedingly rare and he would estimate about 1 in the thousand cases actually end up needing this. He stated that we could continue the IV Levaquin or give IV Rocephin, and and that the patient should continue to have a Maxwell throughout her stay to monitor urine output. He did not feel the patient needed transfer to a facility with a urologist and felt she could stay here for IV antibiotics. However, he did recommend admission to the hospital. She was kept on iv Levaquin plus probiotics. Her Maxwell was kept in place until WBC dropped. She felt better and was sent home to take 5 more days of oral antibiotics. (3) Pyelonephritis Managed as in #1 (4) E coli UTI The urine culture came back growing E. coli and we waited until sensitivities were available, then stopped her IV Levaquin. She was discharged to take 5 more days of oral Levaquin. (5) Methamphetamine use As per tox screen. Drug use was admonished. She claimed she did not have a know how this got into her system, "possibly from being near friends that were using it" (6) Tobacco abuse She was on a Nicotine patch while here. Smoking cessation was advised. (7) Hypokalemia Likely from her nausea and vomiting. It was replaced. - ALLERGIES Allergies/Adverse Reactions: Allergies Allergy/AdvReac Type Severity Reaction Status Date / Time cinnamon Allergy Anaphylaxis Verified 12/20/22 12:53 Latex, Natural Rubber AdvReac Anaphylaxis Verified 12/18/22 19:24 Penicillins AdvReac Anaphylaxis Verified 12/18/22 19:24 - MEDICATIONS Home Medications: Ambulatory Orders Medication Instructions Recorded Confirmed Acetaminophen [Pain Relief Extra 4 tab PO PRN PRN 12/19/22 12/19/22 Strength] L. Acidophilus/L.bulgaricus 1 each PO DAILY #5 tablet 12/21/22 [Lactobacillus Tablet] levoFLOXacin [Levaquin] 750 mg PO DAILY #15 tablet 12/21/22 - PHYSICAL EXAM AT DISCHARGE General Appearance: positive: No acute distress, Alert, Other (Poorly kempt) Eyes Bilateral: positive: Normal inspection ENT: positive: No signs of dehydration Neck: positive: Nml inspection, No JVD Respiratory: positive: No respiratory distress Cardiovascular: positive: Regular rate & rhythm Abdomen: positive: Non-tender, No distention Skin: positive: Warm, Dry Extremities: positive: Non-tender, No pedal edema Neurologic/Psychiatric: positive: Oriented x3, Motor nml - LABS Result Diagrams: 12/21/22 04:58 12/19/22 05:25 - DIAGNOSTIC IMAGING Diagnostic Imaging Results: Final report reviewed - SEPSIS Current Stage of Sepsis: Sepsis Possible source of Sepsis: Genitourinary Sepsis Criteria: Recorded Heart Rate greater than 90 bpm, WBC count greater than 12,000 or less than 4000, MAP less than 65 mmHg - TIME SPENT Time Spent in Discharge (Minutes): 30
[2022-12-21 12:34] VITALS: BP 121/74
== END 2022-12-21 12:00 | disposition home or self-care (01) | DRG 872 ==
LOC: ED 19:15 → MS2 23:53
PROVIDERS: ADMIT Student in an Organized Health Care Education/Training Program; ATTEND Internal Medicine
DX: A41.51 Sepsis due to Escherichia coli [E. coli] (principal); N12 Tubulo-interstitial nephritis, not specified as acute or chronic; N30.80 Other cystitis without hematuria; E87.6 Hypokalemia; F32.A Depression, unspecified; F41.9 Anxiety disorder, unspecified; F17.210 Nicotine dependence, cigarettes, uncomplicated; Z20.822 Contact with and (suspected) exposure to COVID-19; Z32.02 Encounter for pregnancy test, result negative
CPT/HCPCS: 36415; 51702; 74177; 80048; 80053; 80306; 81001; 81025; 83605; 83690; 85025; 87086; 87181; 87633; 96365; 96368; 96375; 96376; 99285; A9270; J1170; J1200; J1650; Q9967; 81003; 84484

== ENCOUNTER 2023-11-13 18:35 | Inpatient (IN) | payer MEDICAID, OTHER ==
[2023-11-13 19:01] LABS: BASOPHILS % (AUTO) 0.3 %; EOSINOPHILS # (AUTO) 0.1 10^3/uL (0.0-0.7); EOSINOPHILS % (AUTO) 0.7 %; HCT - HEMATOCRIT 38.9 % (37.0-47.0); HGB - HEMOGLOBIN 12.8 g/dL (12.0-16.0); LYMPHOCYTES # (AUTO) 2.6 10^3/uL (1.5-3.5); LYMPHOCYTES % (AUTO) 16.8 %; MEAN CORPUSCULAR HGB CONC 32.9 g/dL (32.0-36.0); MEAN CORPUSCULAR VOLUME 91.1 fL (81.0-99.0); MEAN PLATELET VOLUME 9.6 fL (7.9-10.8); MONOCYTES # (AUTO) 1.3 10^3/uL (0.0-1.0); MONOCYTES % (AUTO) 8.5 %; NEUTROPHILS # (AUTO) 11.2 10^3/uL (1.5-6.6); NEUTROPHILS % (AUTO) 73.3 %; PLT - PLATELET COUNT 376 10^3/uL (130-450); RED BLOOD COUNT 4.27 10^6/uL (4.20-5.40); RED CELL DISTRIBUTION WIDTH 13.4 % (12.0-15.0); WHITE BLOOD COUNT 15.2 x10^3/uL (4.8-10.8)
[2023-11-13 19:13] LABS: ALBUMIN 3.9 g/dL (3.2-5.5); ALBUMIN/GLOBULIN RATIO 1.3 (1.0-2.2); BILIRUBIN,TOTAL 0.5 mg/dL (0.2-1.0); CREATININE 0.7 mg/dL (0.6-1.3); POTASSIUM 3.7 mmol/L (3.5-4.5)
[2023-11-13 19:33] LABS: BILIRUBIN,URINE NEGATIVE (NEGATIVE); GLUCOSE, URINE (UA) NEGATIVE (NEGATIVE); KETONES,URINE (UA) NEGATIVE (NEGATIVE); LEUKOCYTE ESTERASE, URINE MODERATE (NEGATIVE); NITRITE,URINE NEGATIVE (NEGATIVE); OCCULT BLOOD,URINE LARGE (NEGATIVE); PH,URINE 7.5 PH (5.0-7.5); PROTEIN,URINE 100 mg/dL (NEGATIVE); UROBILINOGEN,URINE 1 (NORMAL) E.U./dL (NORMAL)
[2023-11-13 19:35] LABS: CLARITY,URINE CLOUDY (CLEAR); HCG UR QUAL NEGATIVE
[2023-11-13 19:46] LABS: BACTERIA,URINE Moderate /HPF (None Seen); RBC,URINE TNTC /HPF (0-5); SQUAMOUS EPITHELIAL CELL,UR NONE SEEN (<= Few); WBC,URINE >25 /HPF (0-5)
[2023-11-13] MEDS ORDERED: KETOROLAC 30 MG/ML VIAL IVP STA (20:27)
[2023-11-13] MEDS ORDERED: cefTRIAXone 1 GM in SODIUM CHLORIDE 0.9% MINIBAG 100 ML IV STA (20:27)
[2023-11-13] MEDS ORDERED: levoFLOXacin 750 MG/150 ML 750 MG/150 ML BAG IV STA (20:27)
--- NOTE | 2023-11-13 20:30 | ED Physician Documentation ---
PD HPI FEMALE - Stated complaint Stated Complaint: R SIDE PX/NAUSEA - Chief complaint Chief Complaint: Abd Pain - History obtained from History obtained from: Patient - History of Present Illness Timing - onset: How many days ago (4) Timing - duration: Days (4) Timing - details: Gradual onset, Still present Associated symptoms: Back pain, Pelvic pain, Dysuria, Urinary frequency, Other (flank pain) Similar symptoms before: Diagnosis (emphysemitous cystitis.) Recently seen: Not recently seen - Additional information Additional information: Maria A Breaux is a 33-year-old female who has a prior history of emphysematous cystitis with pyelonephritis and was treated in the hospital here in November of this year. She indicates that about 4 days ago she began to have symptoms of urinary urgency and frequency and she began drinking extra fluids and cranberry juice this did not resolve her symptoms and she subsequently developed pain to her bladder and pain to her back. Her symptoms are bad enough that she has decided she has to come to the emergency department. She does not have a primary care doctor and she did not seek treatment prior to this. Review of Systems Constitutional: denies: Fever Eyes: denies: Decreased vision Ears: denies: Ear pain Nose: denies: Rhinorrhea / runny nose, Congestion Throat: reports: Sore throat Cardiac: denies: Chest pain / pressure, Palpitations Respiratory: denies: Dyspnea, Cough GI: reports: Abdominal Pain, Nausea : reports: Dysuria, Frequency Skin: denies: Rash Musculoskeletal: reports: Back pain. 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 Acidophilus/L.bulgaricus 1 each PO DAILY #5 tablet 12/21/22 [Lactobacillus Tablet] levoFLOXacin [Levaquin] 750 mg PO DAILY #15 tablet 12/21/22 - Allergies Allergies/Adverse Reactions: Allergies Allergy/AdvReac Type Severity Reaction Status Date / Time cinnamon Allergy Anaphylaxis Verified 11/13/23 18:40 Latex, Natural Rubber AdvReac Anaphylaxis Verified 11/13/23 18:40 Penicillins AdvReac Anaphylaxis Verified 11/13/23 18:40 - Social History Does the pt smoke?: Yes Smoking Status: Current every day smoker Does the pt drink ETOH?: Yes Does the pt have substance abuse?: Yes - Immunizations Immunizations are current?: Yes Immunizations: TDAP >10years/unknown - POLST Patient has POLST: No POLST Status: Full Code PD ED PE NORMAL - Vitals Vital signs reviewed: Yes (hypertensive mild ) - General General: Alert and oriented X 3, Well developed/nourished, Other (Laying in position clutching abdomen. appears to be in pain ) - HEENT HEENT: Atraumatic, PERRL, EOMI - Neck Neck: Supple, no meningeal sign, No bony TTP - Cardiac Cardiac: RRR, No murmur - Respiratory Respiratory: No respiratory distress, Clear bilaterally - Abdomen Abdomen: Soft, Other (The lower abdomen is enlarged, firm and tender consistent with an enlarged bladder. ) - Back Back: No spinal TTP, Other (R CVA tenderness) - Derm Derm: Normal color, Warm and dry, No rash - Extremities Extremities: No deformity, No edema - Neuro Neuro: Alert and oriented X 3, ginning operator 2-12 intact, No motor deficit, No sensory deficit, Normal speech Eye Opening: Spontaneous Motor: Obeys Commands Verbal: Oriented GCS Score: 15 - Psych Psych: Normal mood, Normal affect Results - Vitals Vitals: Vital Signs - 24 hr 11/13/23 11/13/23 11/13/23 18:40 18:43 21:30 Temperature 36.5 C 36.5 C Heart Rate 100 100 100 Respiratory 16 16 16 Rate Blood Pressure 135/86 H 135/86 H 130/88 H O2 Saturation 100 100 100 Oxygen O2 Source Room air - Labs Labs: Laboratory Tests 11/13/23 11/13/23 11/13/23 18:57 18:57 19:29 WBC 15.2 H RBC 4.27 Hgb 12.8 Hct 38.9 MCV 91.1 MCH 30.0 MCHC 32.9 RDW 13.4 Plt Count 376 MPV 9.6 Neut # (Auto) 11.2 H Lymph # (Auto) 2.6 [place] # (Auto) 1.3 H Eos # (Auto) 0.1 Baso # (Auto) 0.0 Absolute Nucleated RBC 0.00 Nucleated RBC % 0.0 Sodium 137 Potassium 3.7 Chloride 103 Carbon Dioxide 29 Anion Gap 5.0 L BUN 10 Creatinine 0.7 Estimated GFR (MDRD) 95 Glucose 95 Calcium 9.0 Total Bilirubin 0.5 AST 9 L ALT 9 L Alkaline Phosphatase 70 Total Protein 7.0 Albumin 3.9 Globulin 3.1 Albumin/Globulin Ratio 1.3 Lipase 13 Urine Color LT. YELLOW Urine Clarity CLOUDY Urine pH 7.5 Ur Specific Gaffney 1.015 Urine Protein 100 H Urine Glucose (UA) NEGATIVE Urine Ketones NEGATIVE Urine Occult Blood LARGE H Urine Nitrite NEGATIVE Urine Bilirubin NEGATIVE Urine Urobilinogen 1 (NORMAL) Ur Leukocyte Esterase MODERATE H Urine RBC TNTC H Urine WBC >25 H Ur Squamous Epith Cells NONE SEEN Urine Bacteria Moderate H Ur Microscopic Review INDICATED Urine Culture Comments INDICATED Urine HCG, Qual NEGATIVE Procedures - Bedside sono Bedside sono by EMP: The use of POCUS the bladder is imaged there is evidence of air in the bladder, it does appear over distended. Examination of the right kidney reveals a sonographically tender kidney without significant hydronephrosis. No perinephric abscess. - IVC sono (time) 2019 Bedside IVC sono: IVC measures (cm) (1.64), Euvolemia PD Medical Decision Making - ED course Complexity details: reviewed old records, reviewed results, re-evaluated patient, considered differential, d/w patient Reviewed Lab Results: We evaluated a complete blood count showing an elevated white blood count of 15.2 normal hemoglobin hematocrit and platelets chemistries were showing normal electrolytes normal kidney and liver function urinalysis shows elevated protein and large occult blood moderate leukocyte Estrace too numerous to count red blood cells and urine white blood cells greater than 25WBC's/hpf moderate bacteria and the specimen did make the grade for culture hCG was negative. I interpreted these findings and the constellation of the patient's presentation to indicate a urinary tract infection significant enough to raise the patient's white blood cell count. CT ab/pel without: Impression: Collapsed bladder with a Maxwell catheter. No thickened wall or visualized emphysematous cystitis. Luminal nondependent air is present suspected to be related to catheter insertion. Large mixed attenuation mass containing fat within the pelvis. It was present on prior exam and is stable versus minimally decreased in size. Appearance is suggestive of a large or moderate given fat component. However, other etiologies cannot be definitively excluded. Given presence since 12/18/2022 exam, further delineation with gynecologic MR pelvis is recommended for evaluation of the complex structure. Moderate colonic stool without obstruction. ED course: 33-year-old Santa Breaux presents to the emergency department with similar symptoms to what she has had in November of this year when she was diagnosed with emphysematous cystitis and pyelonephritis. She has developed symptoms about 4 days ago. She did not have this clear with increased fluids and cranberry juice. She has had increasing pain and she has now developed pain that is intolerable. She has pain to the lower suprapubic area and into the right flank. She has not had fever she has had some nausea without vomiting. Here in the emergency department we find her to have again emphysematous cystitis she has a tender right kidney on sonographic palpation and evidence of infection and a urine specimen as well as an elevated white blood cell count. She has pain associated with this. We have treated her with IV Toradol Levaquin and Rocephin. I have consulted our urologist Dr. Abdiel Reed who recommends admission to the medicine and he will follow the patient in the morning. Patient has had similar presentation previously and we consulted [facility] who recommended continued treatment with IV Levaquin and Rocephin. The patient did recover from that infection after about a 5-day hospitalization and she has returned with a recurrence of these similar symptoms. When she arrived here today we placed a Maxwell catheter and drained urine we got about 300ml out. Draining the urine did not change the appearance of a large mass in the abdomen which I believe was thought to be the bladder on her last CT. This mass is large 12cm X 13cm X 11cm. The recommendation is for further imaging with pelvic MRI. I contacted our oracle reports developer Dr. Rad Montano and she evaluated the patient via telehealth and placed orders for admission. Departure - Departure Disposition: [address] [facility] DC/Xfer Clinical Impression: Pyelonephritis, Pelvic mass
[2023-11-13] MEDS ORDERED: cefTRIAXone 1 GM VIAL ONE (20:36)
--- NOTE | 2023-11-13 23:57 | HISTORY & PHYSICAL EXAMINATION ---
Chief Complaint - Chief Complaint Chief Complaint: flank pain History of Present Illness - Admitted From Admitted From:: home - History Obtained From History obtained from: patient Exam Limitations: telemedicine - History of Present Illness HPI Comment/Other: Ms Breaux is a 33 yo F with hx emphysematous cystitis and pyelonephritis in Nov 2022, treated with antibiotics. She states she did not have any urology follow up due to lack of insurance. Approx 4 days ago on Monday she started to feel like she was getting a UTI, R sided flank pain. The pain progressed over the weekend, unbearable today radiating from R back/side to suprapubic region. She is feeling better since receiving IV toradol and IV abx in ER. She denies dysuria, hematuria, fevers, chills, diarrhea, vomiting. She has had some nausea. Denies headaches, dizziness, cp, cough, sob. She does not take any regular home medications. Smokes 1/2 PPD. History - Past Medical History Cardiovascular: reports: None Respiratory: reports: None Neuro: reports: None Endocrine/Autoimmune: reports: None GI: reports: None KNOCKER OUT: reports: None : reports: None HEENT: reports: None Psych: reports: Depression, Anxiety, Post traumatic stress disorder, Eating disorder Musculoskeletal: reports: None Derm: reports: None MRSA Hx?: No - Family & Social History Family History: Other family: Alive and Well (foster child, does not know biological parents) Living Situation: With spouse/s.o. - Substance History Use: Uses substance without health or social issues: Tobacco (1 pack / 3 days ), Cannabis - POLST Patient has POLST: No POLST Status: Full Code Meds/Allgy - Home Medications Home Medications: Ambulatory Orders Medication Instructions Recorded Confirmed Acetaminophen [Pain Relief Extra 4 tab PO PRN PRN 12/19/22 12/19/22 Strength] L. Acidophilus/L.bulgaricus 1 each PO DAILY #5 tablet 12/21/22 [Lactobacillus Tablet] levoFLOXacin [Levaquin] 750 mg PO DAILY #15 tablet 12/21/22 - Allergies Allergies/Adverse Reactions: Allergies Allergy/AdvReac Type Severity Reaction Status Date / Time cinnamon Allergy Anaphylaxis Verified 11/13/23 18:40 Latex, Natural Rubber AdvReac Anaphylaxis Verified 11/13/23 18:40 Penicillins AdvReac Anaphylaxis Verified 11/13/23 18:40 Review of Systems - Constitutional Constitutional: denies: Fatigue, Fever, Chills, Weakness - Eyes Eyes: denies: Blurred vision - Cardiovascular Cariovascular: denies: Chest pain - Respiratory Respiratory: denies: Cough, Sputum production, SOB at rest - Gastrointestinal Gastrointestinal: reports: Nausea. denies: Abdominal pain, Constipation, Diarrhea, Vomiting - Genitourinary Genitourinary: reports: Frequency, Flank pain. denies: Dysuria, Urgency, Hematuria - Integumentary Integumentary: denies: Rash, Pruritis - Neurological Neurological: denies: General weakness Exam - Vital Signs Reviewed Vital Signs: Yes Vital Signs: Vital Signs x48h Temp Pulse Resp BP Pulse Ox 11/13/23 21:30 100 16 130/88 H 100 11/13/23 18:43 36.5 C 100 16 135/86 H 100 11/13/23 18:40 36.5 C 100 16 135/86 H 100 - Physical Exam General Appearance: positive: No acute distress Eyes Bilateral: positive: Normal inspection ENT: positive: ENT inspection nml Neck: positive: Nml inspection Respiratory: positive: No respiratory distress Abdomen: positive: Non-tender, No distention Back: positive: CVA tenderness (R) Skin: positive: Color nml, No rash Extremities: positive: Full ROM Neurologic/Psychiatric: positive: Oriented x3, Motor nml Conclusion/Plan - Lab Results Fish Bones: 11/13/23 18:57 11/13/23 18:57 - Diagnostic Imaging Results Diagnostic Imaging Results: positive: Final report reviewed - Other Other Results/Comments: Assessment/Plan: Pyelonephritis -Continue IV abx Levaquin/Ceftriaxone per urology recommendations -Noted PCN allergy, patient tolerated Ceftriaxone in ER -Trend labs -F/u urine culture -Continue pain control -Antiemetics PRN -CT abd reviewed - no evidence of emphysematous cystitis, further f/u pelvic mass w MR -Urology consult in a.m. Full code DVT ppx Heparin sc The patient consented to receive this telemedicine service, which I performed via live two-way audiovisual equipment. The patient is at [facility], and I am physically in [facility].
[2023-11-14] MEDS ORDERED: SODIUM CHLORIDE FLUSH 0.9% 10 ML SYRINGE IVP PRN (00:02)
[2023-11-14] MEDS ORDERED: oxyCODONE 5 MG TABLET PO PRN (00:02)
[2023-11-14] MEDS ORDERED: ONDANSETRON 4 MG/2 ML VIAL IVP PRN (00:02)
[2023-11-14] MEDS ORDERED: ACETAMINOPHEN 325 MG TABLET PO PRN (00:02)
--- NOTE | 2023-11-14 00:06 | CT Report ---
PROCEDURE: ABDOMEN/PELVIS WO INDICATIONS: UTI w air in full bladder on POCUS and L flank pa TECHNIQUE: A CT scan of the abdomen and pelvis was performed without the use of intravenous contrast. Images we re recorded and evaluated at appropriate window settings. Reformats: coronal and sagittal. For radiat ion dose reduction, the following was used: automated exposure control, adjustment of mA and/or kV ac cording to patient size. COMPARISON: CT abdomen and pelvis 12/18/2022 FINDINGS: Image quality: Excellent. Lung bases and heart: Unremarkable. Liver: No solid mass. Gallbladder and biliary tree: There is unremarkable Spleen: No splenomegaly. Pancreas: No pancreatic ductal dilation. Adrenals: No adrenal nodule. Kidneys and ureters: No hydronephrosis. No renal cystic lesion which requires follow up. No solid mas s. Prominent colonic stool. Bowel and peritoneum: No bowel distension. No pathologic free fluid. Lymph nodes: No central or retroperitoneal adenopathy. Vessels: No infrarenal aortic aneurysm. PELVIS The bladder is collapsed with a Maxwell catheter. Air is present in the nondependent portion likely rel ated to catheter insertion. There is a large mid pelvic mass measuring approximately 11.8 x 11.7 x 12 .2 cm. It is comprised of multiple different attenuations including fat component. It was present on the 12/18/2022 exam at which time it measured 10.4 x 11.3 x 13.4 cm. Left lower focus of low attenuati on appearing cystic is present measuring 2.9 cm on series 2 image 65. Previous right lower quadrant c ystic foci identified on prior exam are not visualized. Pelvic lymph nodes: No pelvic adenopathy by size criteria. Bones: No aggressive osseous abnormality. Other: No significant ventral or inguinal hernia. IMPRESSION: Collapse bladder with a Maxwell catheter. No thickened wall or visualized emphysematous cystitis. Lumin al nondependent air is present suspected to be related to catheter insertion. Large mixed attenuation mass containing fat within the pelvis. It was present on prior exam and is st able versus minimally decreased in size. Appearance is suggestive of a large or moderate given fat co mponent. However, other etiologies cannot be definitively excluded. Given presence since 12/18/2022 ex am, further delineation with gynecologic MR pelvis is recommended for evaluation of the complex struc ture. Moderate colonic stool without obstruction. Reviewed by: Naye Valentin MD on 11/14/2023 12:05 AM PST Approved by: Naye Valentin MD on 11/14/2023 12:05 AM PST Station ID: [id number]
[2023-11-14] MEDS: SODIUM CHLORIDE 0.9% 1,000 ML IV SCH ×3 (02:20→20:55)
[2023-11-14] MEDS: SODIUM CHLORIDE FLUSH 0.9% 10 ML SYRINGE IVP SCH ×3 (02:21→16:57)
[2023-11-14 06:23] LABS: BASOPHILS # (AUTO) 0.1 10^3/uL (0.0-0.1); BASOPHILS % (AUTO) 0.4 %; EOSINOPHILS # (AUTO) 0.2 10^3/uL (0.0-0.7); EOSINOPHILS % (AUTO) 1.3 %; HCT - HEMATOCRIT 36.2 % (37.0-47.0); HGB - HEMOGLOBIN 11.7 g/dL (12.0-16.0); LYMPHOCYTES # (AUTO) 2.1 10^3/uL (1.5-3.5); LYMPHOCYTES % (AUTO) 16.2 %; MEAN CORPUSCULAR HEMOGLOBIN 30.2 pg (27.0-31.0); MEAN CORPUSCULAR HGB CONC 32.3 g/dL (32.0-36.0); MEAN CORPUSCULAR VOLUME 93.3 fL (81.0-99.0); MEAN PLATELET VOLUME 9.9 fL (7.9-10.8); MONOCYTES # (AUTO) 1.3 10^3/uL (0.0-1.0); MONOCYTES % (AUTO) 10.3 %; NEUTROPHILS # (AUTO) 9.1 10^3/uL (1.5-6.6); NEUTROPHILS % (AUTO) 71.5 %; PLT - PLATELET COUNT 314 10^3/uL (130-450); RED BLOOD COUNT 3.88 10^6/uL (4.20-5.40); RED CELL DISTRIBUTION WIDTH 13.7 % (12.0-15.0); WHITE BLOOD COUNT 12.7 x10^3/uL (4.8-10.8)
[2023-11-14 06:50] LABS: CALCIUM 8.5 mg/dL (8.5-10.3); CREATININE 0.7 mg/dL (0.6-1.3); POTASSIUM 3.9 mmol/L (3.5-4.5)
--- NOTE | 2023-11-14 08:35 | CONSULTATION NOTE ---
Referring Provider Name of Referring Provider:: ER Consult Date: 11/14/23 Chief Complaint - Chief Complaint Chief Complaint: pelvic mass History of Present Illness - Admitted From Admitted From:: ER - History Obtained From Records Reviewed: ER, hospital History obtained from: patient, hospital Exam Limitations: none - History of Present Illness HPI Comment/Other: Briefly this is a 33-year-old woman with no urological history besides urinary tract infections who presented to the hospital in November 2022. She was noted to have a UTI at the time. She had a CT scan which showed concern for an enlarged bladder with emphysematous cystitis including gas-forming organisms in the lumen of the bladder along with the bladder mucosa. There is also concern about possible emphysematous pyelonephritis at the time as well. She was treated with antibiotics and discharged home. There were no local urological providers at the time at this hospital and her scan was sent to [facility] for review. There they consider this to be a basic though atypical emphysematous cystitis. She was meant to follow-up after discharge but as she had insurance issues she did not. She did well in the meantime with perhaps 1 UTI issue until a few days ago when she had significant swelling of her abdomen along with abdominal pain in association of also a possible UTI. A Maxwell catheter was placed. She presented again to the ER and had another CT scan which again a massively enlarged pelvic mass which at this time did appear to be separate from the bladder. Her urinalysis was concerning for infection. She was hemodynamically stable. She had a mild leukocytosis. Urology was consulted for further evaluation management. At bedside patient is minimally uncomfortable. Patient states she has had no issues of constipation, no history of diverticulitis, cancer, no prior pregnancies. She cannot recall her last Pap smear gynecological evaluation. Of note she is [place] from [place] and moved here 9 years ago. 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 - Substance History Use: Uses substance without health or social issues: Tobacco (1 pack / 3 days ), Cannabis - POLST Patient has POLST: No POLST Status: Full Code Meds/Allgy - Home Medications Home Medications: Ambulatory Orders Medication Instructions Recorded Confirmed No Known Home Medications 11/14/23 11/14/23 - Allergies Allergies/Adverse Reactions: Allergies Allergy/AdvReac Type Severity Reaction Status Date / Time cinnamon Allergy Severe Hives Verified 11/14/23 10:22 melon Allergy Unknown Unknown Verified 11/14/23 10:45 watermelon Allergy Unknown Unknown Verified 11/14/23 10:44 iodine Allergy Hives Verified 11/14/23 10:22 Latex, Natural Rubber AdvReac Anaphylaxis Verified 11/13/23 18:40 Penicillins AdvReac Anaphylaxis Verified 11/13/23 18:40 Berries Allergy Unknown Unknown Uncoded 11/14/23 10:44 Exam - Vital Signs Reviewed Vital Signs: Yes Vital Signs: Vital Signs x48h Temp Pulse Pulse Resp BP BP Pulse Ox 11/14/23 08:00 36.6 C 77 18 115/79 98 11/14/23 04:40 36.8 C 89 16 112/79 98 11/14/23 04:00 84 16 124/94 H 98 - Physical Exam General Appearance: positive: No acute distress Abdomen: positive: Other (Firm, minimally tender to palpation in the infraumbilical area. Soft upper abdomen.) Conclusion and Plan - Lab Results Laboratory Results 11/14/23 05:58: Sodium 139, Potassium 3.9, Chloride 108, Carbon Dioxide 28, Anion Gap 3.0 L, BUN 11, Creatinine 0.7, Estimated GFR (MDRD) 95, Glucose 125 H, Calcium 8.5 11/14/23 05:58: WBC 12.7 H, RBC 3.88 L, Hgb 11.7 L, Hct 36.2 L, MCV 93.3, MCH 30.2, MCHC 32.3, RDW 13.7, Plt Count 314, MPV 9.9, Neut # (Auto) 9.1 H, Lymph # (Auto) 2.1, [place] # (Auto) 1.3 H, Eos # (Auto) 0.2, Baso # (Auto) 0.1, Absolute Nucleated RBC 0.00, Nucleated RBC % 0.0 11/13/23 19:29: Urine Color LT. YELLOW, Urine Clarity CLOUDY, Urine pH 7.5, Ur Specific [place] 1.015, Urine Protein 100 H, Urine Glucose (UA) NEGATIVE, Urine Ketones NEGATIVE, Urine Occult Blood LARGE H, Urine Nitrite NEGATIVE, Urine Bilirubin NEGATIVE, Urine Urobilinogen 1 (NORMAL), Ur Leukocyte Esterase MODERATE H, Urine RBC TNTC H, Urine WBC >25 H, Ur Squamous Epith Cells NONE SEEN, Urine Bacteria Moderate H, Ur Microscopic Review INDICATED, Urine Culture Comments INDICATED, Urine HCG, Qual NEGATIVE 11/13/23 18:57: Sodium 137, Potassium 3.7, Chloride 103, Carbon Dioxide 29, Anion Gap 5.0 L, BUN 10, Creatinine 0.7, Estimated GFR (MDRD) 95, Glucose 95, Calcium 9.0, Total Bilirubin 0.5, AST 9 L, ALT 9 L, Alkaline Phosphatase 70, Total Protein 7.0, Albumin 3.9, Globulin 3.1, Albumin/Globulin Ratio 1.3, Lipase 13 11/13/23 18:57: WBC 15.2 H, RBC 4.27, Hgb 12.8, Hct 38.9, MCV 91.1, MCH 30.0, MCHC 32.9, RDW 13.4, Plt Count 376, MPV 9.6, Neut # (Auto) 11.2 H, Lymph # (Auto) 2.6, [place] # (Auto) 1.3 H, Eos # (Auto) 0.1, Baso # (Auto) 0.0, Absolute Nucleated RBC 0.00, Nucleated RBC % 0.0 - Diagnostic Imaging Results Diagnostic Imaging Results: positive: Read independently - Diagnosis Diagnosis: Ovarian mass - Consultation Note Consultation Note: After reviewing her imaging I was quite confident that she did not have a urological issue. In fact going back I think that she was incorrectly diagnosed with an emphysematous cystitis in the past and clearly she had this mass 1 year ago. I am also confused about the diagnosis of emphysematous pyelonephritis as I see no evidence of that on her imaging prior. Clearly she has a large gynecological mass versus malignancy versus benign concern. I suspect this will require relatively soon surgical management. Had she followed up appropriately with physicians this issue would have been dealt with last year. She is nontoxic and her only urological issue is a basic cystitis. I recommend empiric antibiotics for 5 days. She does not need a Maxwell anymore. I recommend gynecological evaluation at this point. No urological follow-up required. Urology signing off
[2023-11-14] MEDS ORDERED: GADOTERATE MEGLUMINE 5 MMOL/10 ML VIAL ONE (09:23)
[2023-11-14] MEDS: NICOTINE 7 MG PATCH TOP SCH (09:25)
[2023-11-14] MEDS: HEPARIN 5,000 UNIT/ML VIAL SUBQ SCH ×2 (09:25→20:55)
[2023-11-14] MEDS: MORPHINE 2 MG/ML CARPUJECT IVP PRN ×2 (09:32→20:55)
--- NOTE | 2023-11-14 10:46 | PHARMACY PROGRESS NOTE ---
- Best Possible Medication History Admit Date and Time: 11/14/23 0004 Processed by: Pharmacy Medication History completed: Yes Patient Interview: Completed (By Lorena Rhoades) As the person ultimately responsible for medication therapy, providers are able to order a medication from an existing home medication list in [facility] via the "Reconcile Routine" prior to Confirmation of that medication by cell support operator. Such practice is discouraged except when the physician, in their clinical judgment, deems that a medical need exists for a medication without regard to previous use.
--- NOTE | 2023-11-14 12:02 | PROVIDER PROGRESS NOTE ---
Assessment/Plan - Problem List (1) Pyelonephritis Assessment/Plan: -- Urine culture is currently pending. --Continue treatment with IV levofloxacin. --No evidence of pyelonephritis on CT however she was having some right flank pain on admission. This has subsided. --Case was discussed with urology. (2) Pelvic mass Assessment/Plan: -- This was discussed with urology. MRI is currently pending to further evaluate findings seen on CT. - Current Meds Current Meds: Current Medications Generic Name Dose Route Start Last Admin Trade Name Freq PRN Reason Stop Dose Admin Heparin Sodium (Porcine) 5,000 unit 11/14/23 09:00 11/14/23 09:25 Heparin 5,000 Unit/Ml Vial SUBQ 5,000 unit BID OMKAR Administration Sodium Chloride 1,000 mls @ 100 mls/hr 11/14/23 01:00 11/14/23 02:20 Normal Saline 0.9% IV 100 mls/hr .Q10H OMKAR Administration Morphine Sulfate 2 mg 11/14/23 00:02 11/14/23 09:32 Morphine 2 Mg/Ml Carpuject IVP 2 mg Q2HR PRN Administration Pain 8 to 10 Nicotine 1 patch 11/14/23 09:00 11/14/23 09:25 Nicotine 7 Mg Patch TOP 1 patch DAILY OMKAR Administration Sodium Chloride 10 ml 11/14/23 01:00 11/14/23 09:26 Sodium Chloride Flush 0.9% 10 Ml Syringe IVP 10 ml 0100,0900,1700 OMKAR Administration - Lab Result Fish Bone Diagrams: 11/14/23 05:58 11/14/23 05:58 - Additional Planning My Orders: My Active Orders 11/14/23 08:51 CULTURE, BLOOD #1 [RM] Routine Consult/Specialty: Urology Subjective - Subjective Patient Reports: Feeling Better, Resting Comfortably, No Complaints (Flank pain has resolved. No fever or chills.) Objective Vital Signs: Vital Signs - 24 hr 11/13/23 11/13/23 11/13/23 18:40 18:43 21:30 Temperature 36.5 C 36.5 C Heart Rate 100 100 100 Heart Rate [ Radial] Respiratory 16 16 16 Rate Blood Pressure 135/86 H 135/86 H 130/88 H Blood Pressure [Left Brachial artery] O2 Saturation 100 100 100 12/11/14/23 11/14/23 04:00 04:40 08:00 Temperature 36.8 C 36.6 C Heart Rate 84 Heart Rate [ 89 77 Radial] Respiratory 16 16 18 Rate Blood Pressure 124/94 H Blood Pressure 112/79 115/79 [Left Brachial artery] O2 Saturation 98 98 98 Oxygen O2 Source Room air I&O (Last 24 Hrs): Intake and Output Totals x24h 11/12/23 11/13/23 11/14/23 23:59 23:59 23:59 Intake Total 250 100 Output Total 300 Balance 250 -200 General: Alert, Oriented x3 Neuro: Alert Cardiovascular: Regular rate, Normal S1, Normal S2 Respiratory: Chest non-tender, No respiratory distress Abdomen: Normal bowel sounds, Soft (No flank tenderness.) - Results Results: Laboratory Results WBC 12.7 x10^3/uL (4.8-10.8) H 11/14/23 05:58 RBC 3.88 10^6/uL (4.20-5.40) L 11/14/23 05:58 Hgb 11.7 g/dL (12.0-16.0) L 11/14/23 05:58 Hct 36.2 % (37.0-47.0) L 11/14/23 05:58 MCV 93.3 fL (81.0-99.0) 11/14/23 05:58 MCH 30.2 pg (27.0-31.0) 11/14/23 05:58 MCHC 32.3 g/dL (32.0-36.0) 11/14/23 05:58 RDW 13.7 % (12.0-15.0) 11/14/23 05:58 Plt Count 314 10^3/uL (130-450) 11/14/23 05:58 MPV 9.9 fL (7.9-10.8) 11/14/23 05:58 Neut # (Auto) 9.1 10^3/uL (1.5-6.6) H 11/14/23 05:58 Lymph # (Auto) 2.1 10^3/uL (1.5-3.5) 11/14/23 05:58 [place] # (Auto) 1.3 10^3/uL (0.0-1.0) H 11/14/23 05:58 Eos # (Auto) 0.2 10^3/uL (0.0-0.7) 11/14/23 05:58 Baso # (Auto) 0.1 10^3/uL (0.0-0.1) 11/14/23 05:58 Absolute Nucleated RBC 0.00 x10^3/uL 11/14/23 05:58 Nucleated RBC % 0.0 /100WBC 11/14/23 05:58 Sodium 139 mmol/L (135-145) 11/14/23 05:58 Potassium 3.9 mmol/L (3.5-4.5) 11/14/23 05:58 Chloride 108 mmol/L (101-111) 11/14/23 05:58 Carbon Dioxide 28 mmol/L (21-32) 11/14/23 05:58 Anion Gap 3.0 (6-13) L 11/14/23 05:58 BUN 11 mg/dL (6-20) 11/14/23 05:58 Creatinine 0.7 mg/dL (0.6-1.3) 11/14/23 05:58 Estimated GFR (MDRD) 95 (>89) 11/14/23 05:58 Glucose 125 mg/dL (74-104) H 11/14/23 05:58 Calcium 8.5 mg/dL (8.5-10.3) 11/14/23 05:58 Total Bilirubin 0.5 mg/dL (0.2-1.0) 11/13/23 18:57 AST 9 IU/L (10-42) L 11/13/23 18:57 ALT 9 IU/L (10-60) L 11/13/23 18:57 Alkaline Phosphatase 70 IU/L (42-121) 11/13/23 18:57 Total Protein 7.0 g/dL (6.4-8.9) 11/13/23 18:57 Albumin 3.9 g/dL (3.2-5.5) 11/13/23 18:57 Globulin 3.1 g/dL (2.1-4.2) 11/13/23 18:57 Albumin/Globulin Ratio 1.3 (1.0-2.2) 11/13/23 18:57 Lipase 13 U/L (11-82) 11/13/23 18:57 Urine Color LT. YELLOW 11/13/23 19: Urine Clarity CLOUDY (CLEAR) 11/13/23 19: Urine pH 7.5 PH (5.0-7.5) 11/13/23 19: Ur Specific [place] 1.015 (1.002-1.030) 11/13/23 19:29 Urine Protein 100 mg/dL (NEGATIVE) H 11/13/23 19: Urine Glucose (UA) NEGATIVE mg/dL (NEGATIVE) 11/13/23 19: Urine Ketones NEGATIVE mg/dL (NEGATIVE) 11/13/23 19: Urine Occult Blood LARGE (NEGATIVE) H 11/13/23 19: Urine Nitrite NEGATIVE (NEGATIVE) 11/13/23 19: Urine Bilirubin NEGATIVE (NEGATIVE) 11/13/23 19: Urine Urobilinogen 1 (NORMAL) E.U./dL (NORMAL) 11/13/23 19:29 Ur Leukocyte Esterase MODERATE (NEGATIVE) H 11/13/23 19: Urine RBC TNTC /HPF (0-5) H 11/13/23 19:29 Urine WBC >25 /HPF (0-5) H 11/13/23 19:29 Ur Squamous Epith Cells NONE SEEN (<= Few) 11/13/23 19: Urine Bacteria Moderate /HPF (None Seen) H 11/13/23 19:29 Ur Microscopic Review INDICATED 11/13/23 19: Urine Culture Comments INDICATED 11/13/23 19: Urine HCG, Qual NEGATIVE 11/13/23 19: Sepsis Event Note (H) - Evaluation Current Stage of Sepsis: Ruled out Current Medications - Current Medications Current Medications: Active Medications Generic Name Dose Route Start Last Admin Trade Name Freq PRN Reason Stop Dose Admin Acetaminophen 650 mg 11/14/23 00:02 Acetaminophen 325 Mg Tablet PO Q4HR PRN Pain 1 to 4, or Fever Heparin Sodium (Porcine) 5,000 unit 11/14/23 09:00 11/14/23 09:25 Heparin 5,000 Unit/Ml Vial SUBQ 5,000 unit BID OMKAR Administration Sodium Chloride 1,000 mls @ 100 mls/hr 11/14/23 01:00 11/14/23 02:20 Normal Saline 0.9% IV 100 mls/hr .Q10H OMKAR Administration Levofloxacin 750 mg in 150 mls @ 100 mls/hr 12/19/23 20:00 Levaquin 750 Mg/150 Ml IV Q24H OMKAR Morphine Sulfate 2 mg 11/14/23 00:02 11/14/23 09:32 Morphine 2 Mg/Ml Carpuject IVP 2 mg Q2HR PRN Administration Pain 8 to 10 Nicotine 1 patch 11/14/23 09:00 11/14/23 09:25 Nicotine 7 Mg Patch TOP 1 patch DAILY OMKAR Administration Ondansetron HCl 4 mg 11/14/23 00:02 Ondansetron 4 Mg/2 Ml Vial IVP Q6HR PRN Nausea / Vomiting Oxycodone HCl 5 mg 11/14/23 00:02 Oxycodone 5 Mg Tablet PO Q4HR PRN Pain 5 to 7 Sodium Chloride 10 ml 11/14/23 00:02 Sodium Chloride Flush 0.9% 10 Ml Syringe IVP PRN PRN NEEDED PER PROVIDER ORDERS Sodium Chloride 10 ml 11/14/23 01:00 11/14/23 09:26 Sodium Chloride Flush 0.9% 10 Ml Syringe IVP 10 ml 0100,0900,1700 OMKAR Administration No Known Home Medications 11/14/23
--- NOTE | 2023-11-14 12:43 | MRI Report ---
PROCEDURE: PELVIS W/WO INDICATIONS: very large pelvic/abdominal mass of unclear etio CONTRAST: clariscan 9.6ml TECHNIQUE: Coronal ultra fast SE, sagittal T2 FSE, axial T1 FSE, axial and coronal nonbreath-hold T2 FSE. Axial dynamic ultra fast GE during administration of contrast. Post-contrast axial and coronal ultra fast GE / 2-D spoiled GE with fat saturation from the iliac crests to the symphysis. Optional diffusion weighted imaging and ADC may be performed. COMPARISON: No comparisons. FINDINGS: Image quality: Excellent. Uterus: Neutral position with anteflexion. Ovaries: 11.8 x 11.7 x 12.2 cm mass within the central pelvis, likely scanning from the right ovary. This mass contains internal fat, with fluid fluid levels and heterogeneous, floating contents. No enh ancing nodules are present. Bowel and peritoneum: No pathologic free pelvic fluid. Inferior colon and small bowel loops are nor mal in caliber. Nodes and vessels: No pathologic pelvic or inguinal adenopathy by size criteria. Iliac vessels are normal in caliber. Bladder: Decompressed around a Maxwell catheter. Soft tissues: No inguinal hernias. Bones: Marrow is normal in overall signal. 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 Given size, findin gs place this patient at risk for ovarian torsion. Consider gynecologic referral for surgical excisio n. Reviewed by: Dennis Apple MD on 11/14/2023 12:42 PM PST Approved by: Dennis Apple MD on 11/14/2023 12:42 PM PST Station ID: [id number]
[2023-11-14] MEDS ORDERED: GADOTERATE MEGLUMINE 5 MMOL/10 ML VIAL IVP ONE (18:37)
[2023-11-14] MEDS ORDERED: levoFLOXacin 750 MG/150 ML 750 MG/150 ML BAG IV SCH (20:00)
[2023-11-14] MEDS ORDERED: cefTRIAXone 1 GM in SODIUM CHLORIDE 0.9% MINIBAG 100 ML IV SCH (20:00)
[2023-11-15] MEDS: SODIUM CHLORIDE 0.9% 1,000 ML IV SCH (03:16)
[2023-11-15] MEDS: SODIUM CHLORIDE FLUSH 0.9% 10 ML SYRINGE IVP SCH ×2 (03:16→09:13)
[2023-11-15] MEDS: HEPARIN 5,000 UNIT/ML VIAL SUBQ SCH (09:12)
[2023-11-15] MEDS: NICOTINE 7 MG PATCH TOP SCH (09:13)
--- NOTE | 2023-11-15 10:39 | Discharge Plan ---
Discharge Plan Problem Reviewed?: Yes Disposition: Home, Self Care Prescriptions: levoFLOXacin [Levofloxacin] 750 mg PO DAILY #10 tab Diet: Regular Activity Restrictions: No Restrictions Additional Instructions or Follow Up instructions: Follow up with [facility] [phone] in 3-5 days. No Smoking: If you smoke, Please STOP! Call for help.
--- NOTE | 2023-11-15 11:00 | DISCHARGE SUMMARY ---
"Discharge Summary Discharge Date: 11/15/23 Discharging Provider: Indira Ray Status: Attempt Resuscitation Condition at Discharge: Good Discharge Disposition: 01 Home, Self Care - DIAGNOSES Discharge Diagnoses with Status of Each Condition: (1) Pyelonephritis Assessment/Plan: -- Continue levofloxacin PO at home. (2) Pelvic mass Assessment/Plan: -- MRI showed teratoma. Patient to follow up with clinical cytogeneticist scientist. - CONSULTS | PROCEDURES Consultations: Urology - HOSPITAL COURSE Hospital Course: Patient is a 33-year-old female who presented to the ED due to complaints of right-sided flank pain. CT abdomen/pelvis performed which revealed evidence of a pelvic mass. She started on IV levofloxacin which did improve her symptoms. Urology was consulted and ordered an MRI which revealed a large teratoma extending off the right ovary. This was discussed with local bread oven operator who recommended outpatient evaluation. She was ultimately discharged on oral levofloxacin and instructions to follow-up with gynecology for management of her teratoma. - ALLERGIES Allergies/Adverse Reactions: Allergies Allergy/AdvReac Type Severity Reaction Status Date / Time cinnamon Allergy Severe Hives Verified 11/14/23 10:22 melon Allergy Unknown Unknown Verified 11/14/23 10:45 watermelon Allergy Unknown Unknown Verified 11/14/23 10:44 iodine Allergy Hives Verified 11/14/23 10:22 Latex, Natural Rubber AdvReac Anaphylaxis Verified 11/13/23 18:40 Penicillins AdvReac Anaphylaxis Verified 11/13/23 18:40 Berries Allergy Unknown Unknown Uncoded 11/14/23 10:44 - MEDICATIONS Home Medications: Ambulatory Orders Medication Instructions Recorded Confirmed levoFLOXacin [Levofloxacin] 750 mg PO DAILY #10 tab 11/15/23 - PHYSICAL EXAM AT DISCHARGE General Appearance: positive: No acute distress, Alert Respiratory: positive: Chest non-tender, No respiratory distress Cardiovascular: positive: Regular rate & rhythm, No murmur, No gallop Abdomen: positive: Non-tender Back: negative: CVA tenderness (R), CVA tenderness (L) Neurologic/Psychiatric: positive: CN's nml (2-12) - LABS Result Diagrams: 11/14/23 05:58 11/14/23 05:58 - SEPSIS Current Stage of Sepsis: Ruled out - FOLLOW UP Follow Up: [facility]. Contact information was provided. - TIME SPENT Time Spent in Discharge (Minutes): 35"
[2023-11-15 12:09] VITALS: BP 117/80; O2SAT 100
== END 2023-11-15 12:30 | disposition home or self-care (01) | DRG 690 ==
LOC: ED 18:35 → MS3 11-14 00:04
PROVIDERS: ADMIT Student in an Organized Health Care Education/Training Program; ATTEND Family Medicine
DX: N12 Tubulo-interstitial nephritis, not specified as acute or chronic (principal); D27.0 Benign neoplasm of right ovary; Z87.440 Personal history of urinary (tract) infections; F17.210 Nicotine dependence, cigarettes, uncomplicated
CPT/HCPCS: 36415; 51702; 72197; 74176; 80048; 80053; 81001; 81025; 83690; 85025; 87040; 87086; 96365; 96366; 96368; 96375; 99285; A9270; A9575; 81003

== ENCOUNTER 2023-12-15 20:39 | Emergency (ER) | payer SELFPAY ==
[2023-12-15] MEDS ORDERED: DROPERIDOL 5 MG/2 ML VIAL IVP STA (21:05)
[2023-12-15] MEDS ORDERED: diphenhydrAMINE INJ 50 MG/ML VIAL IVP STA (21:05)
[2023-12-15] MEDS ORDERED: KETOROLAC 30 MG/ML VIAL IVP STA (21:05)
[2023-12-15] MEDS ORDERED: SODIUM CHLORIDE 0.9% 1,000 ML IV STA (21:06)
--- NOTE | 2023-12-15 21:08 | ED Physician Documentation ---
PD HPI HEADACHE - Stated complaint Stated Complaint: URIAS - Chief complaint Chief Complaint: Neuro - History obtained from History obtained from: Patient - History of Present Illness Timing - details: Gradual onset Pain level max: 8 Pain level now: 8 Location: Front Quality: Throbbing, Aching. No: Thunderclap Associated symptoms: Nausea. No: Fever, Stiff neck, Vomiting, Weakness, Numbness, Syncope, Seizure, Eye pain Improved by: Rest, Dark room Worsened by: Light, Noise Contributing factors: No: Anticoagulated, Possible carbon monoxide, Recent illness, Trauma - Additional information Additional information: Patient is a 3-year-old female who presents to the emergency department with a gradual onset headache today. Took Tylenol and Vicodin at home without relief. Frontal headache. Similar to prior headaches. No fevers. No chills. No vomiting but has had nausea. No recent illnesses. No trauma. Denies any possibility of . 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: None : Retention HEENT: None Psych: Depression, Anxiety, Post traumatic stress disorder, Eating disorder Musculoskeletal: None Derm: None - Past Surgical History Past Surgical History: No - Present Medications Home Medications: Ambulatory Orders Medication Instructions Recorded Confirmed levoFLOXacin [Levofloxacin] 750 mg PO DAILY #10 tab 11/15/23 - Allergies Allergies/Adverse Reactions: Allergies Allergy/AdvReac Type Severity Reaction Status Date / Time cinnamon Allergy Severe Hives Verified 12/15/23 20:42 melon Allergy Unknown Unknown Verified 12/15/23 20:42 watermelon Allergy Unknown Unknown Verified 12/15/23 20:42 iodine Allergy Hives Verified 12/15/23 20:42 Latex, Natural Rubber AdvReac Anaphylaxis Verified 12/15/23 20:42 Penicillins AdvReac Anaphylaxis Verified 12/15/23 20:42 Berries Allergy Unknown Unknown Uncoded 12/15/23 20:42 - Social History Does the pt smoke?: Yes Smoking Status: Current every day smoker Does the pt drink ETOH?: Yes Does the pt have substance abuse?: Yes - Immunizations Immunizations are current?: Yes Immunizations: TDAP >10years/unknown - POLST Patient has POLST: No POLST Status: Full Code PD ED PE NORMAL - Vitals Vital signs reviewed: Yes - General General: Alert and oriented X 3, Well developed/nourished, Other (Patient is lying in a darkened room, eyes closed, head under the blanket) - HEENT HEENT: Atraumatic, PERRL, EOMI, Moist mucous membranes - Neck Neck: Supple, no meningeal sign, No bony TTP - Cardiac Cardiac: RRR, Strong equal pulses - Respiratory Respiratory: No respiratory distress, Clear bilaterally - Abdomen Abdomen: Soft, Non tender, Non distended - Derm Derm: Warm and dry - Extremities Extremities: No edema, No calf tenderness / cord - Neuro Neuro: Alert and oriented X 3, high reach operator 2-12 intact, No motor deficit, No sensory deficit, Normal speech Eye Opening: Spontaneous Motor: Obeys Commands Verbal: Oriented GCS Score: 15 - Psych Psych: Normal mood, Normal affect Results - Vitals Vitals: Vital Signs - 24 hr 12/15/23 12/15/23 20:42 21:42 Temperature 36.8 C Heart Rate 81 51 L Respiratory 16 16 Rate Blood Pressure 145/85 H O2 Saturation 100 98 Oxygen O2 Source Room air PD Medical Decision Making - ED course Complexity details: reviewed results, re-evaluated patient, considered differential, d/w patient, d/w family ED course: 33-year-old female given IV Toradol, Benadryl and droperidol. Reevaluated the patient and her headache has nearly resolved. Given IV normal saline as well. Symptoms are consistent with her usual migraine headache. No indication of subarachnoid hemorrhage, tumor, mass. No indication for emergent neuroimaging. No evidence of meningitis. No fevers. Normal cerebellar test. Normal gait. Patient request to go home at this time. Patient counseled regarding signs and symptoms for which I believe and urgent re-evaluation would be necessary. Patient with good understanding of and agreement to plan and is comfortable going home at this time This document was made in part using voice recognition software. While efforts are made to proofread this document, sound alike and grammatical errors may occur. Departure - Departure Disposition: Home, Self Care Clinical Impression: Migraine headache Qualifiers: Migraine type: unspecified Status migrainosus presence: without status migrainosus Intractability: not intractable Qualified Code(s): G43.909 - Migraine, unspecified, not intractable, without status migrainosus Condition: Good Instructions: ED Headache Migraine Follow-Up: your,doctor as needed [Other] Comments: You were treated for a migraine headache today. Go home and rest. You were given Toradol, droperidol and Benadryl. Do not drive until tomorrow. Please return if you worsen. Forms: PCP List
[2023-12-15 22:33] VITALS: BP 114/74; O2SAT 96
== END 2023-12-15 22:30 | disposition home or self-care (01) ==
LOC: ED 20:39
DX: G43.909 Migraine, unspecified, not intractable, without status migrainosus (principal); F17.200 Nicotine dependence, unspecified, uncomplicated
CPT/HCPCS: 96374; 96375; 99283; J1200

== ENCOUNTER 2024-05-23 17:50 | Observation (INO) | payer MEDICAID, OTHER ==
[2024-05-23 18:45] LABS: BASOPHILS % (AUTO) 0.1 %; EOSINOPHILS # (AUTO) 0.1 10^3/uL (0.0-0.7); EOSINOPHILS % (AUTO) 0.3 %; HCT - HEMATOCRIT 45.6 % (37.0-47.0); LYMPHOCYTES # (AUTO) 0.9 10^3/uL (1.5-3.5); LYMPHOCYTES % (AUTO) 5.7 %; MEAN CORPUSCULAR HEMOGLOBIN 30.6 pg (27.0-31.0); MEAN CORPUSCULAR HGB CONC 32.9 g/dL (32.0-36.0); MEAN CORPUSCULAR VOLUME 93.1 fL (81.0-99.0); MEAN PLATELET VOLUME 9.2 fL (7.9-10.8); MONOCYTES # (AUTO) 0.4 10^3/uL (0.0-1.0); MONOCYTES % (AUTO) 2.7 %; NEUTROPHILS # (AUTO) 13.9 10^3/uL (1.5-6.6); NEUTROPHILS % (AUTO) 90.8 %; PLT - PLATELET COUNT 453 10^3/uL (130-450); RED CELL DISTRIBUTION WIDTH 14.1 % (12.0-15.0); WHITE BLOOD COUNT 15.3 x10^3/uL (4.8-10.8)
[2024-05-23 19:01] LABS: ALBUMIN 4.1 g/dL (3.2-5.5); ALBUMIN/GLOBULIN RATIO 1.3 (1.0-2.2); BILIRUBIN,TOTAL 0.7 mg/dL (0.2-1.0); CALCIUM 9.5 mg/dL (8.5-10.3); CREATININE 0.7 mg/dL (0.6-1.3); POTASSIUM 4.1 mmol/L (3.5-4.5); TOTAL PROTEIN 7.3 g/dL (6.4-8.9)
--- NOTE | 2024-05-23 19:34 | ED Physician Documentation ---
PD HPI ABD PAIN - Stated complaint Stated Complaint: ABD/BACK PX - Chief complaint Chief Complaint: Abd Pain - History obtained from History obtained from: Patient, Family - Additional information Additional information: 33-year-old woman with history of emphysematous cystitis and pyelonephritis in 2022. She was also admitted for pyelonephritis in October 2023. 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 She was discharged with recommendation to follow-up with gynecology. Sounds like she was lost to follow-up. Since 11:00 this morning she had severe abdominal pain radiating to the back. She has had nausea with several rounds of brown emesis. She is limited in her history being due to pain and histrionic behavior. She has a history of methamphetamine abuse according to the chart but denies this to me says she uses only cannabis. 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 HEENT: None Psych: Depression, Anxiety, Post traumatic stress disorder, Eating disorder Musculoskeletal: None Derm: None - Past Surgical History Past Surgical History: No - Present Medications Home Medications: Ambulatory Orders Medication Instructions Recorded Confirmed No Known Home Medications 05/23/24 05/23/24 - Allergies Allergies/Adverse Reactions: Allergies Allergy/AdvReac Type Severity Reaction Status Date / Time cinnamon Allergy Severe Hives Verified 05/23/24 18:08 melon Allergy Unknown Unknown Verified 05/23/24 18:08 watermelon Allergy Unknown Unknown Verified 05/23/24 18:08 iodine Allergy Hives Verified 05/23/24 18:08 Latex, Natural Rubber AdvReac Anaphylaxis Verified 05/23/24 18:08 Penicillins AdvReac Anaphylaxis Verified 05/23/24 18:08 Berries Allergy Unknown Unknown Uncoded 05/23/24 18:08 - Social History Does the pt smoke?: Yes Smoking Status: Current every day smoker Does the pt drink ETOH?: Yes Does the pt have substance abuse?: Yes - Immunizations Immunizations are current?: Yes Immunizations: TDAP >10years/unknown - POLST Patient has POLST: No POLST Status: Full Code PD ED PE NORMAL - Vitals Vital signs reviewed: Yes - General General: Other (She is laying on her side in pain, can barely talk to to the pain. She cannot move for appropriate examination.) - Cardiac Cardiac: RRR, No murmur - Respiratory Respiratory: No respiratory distress, Clear bilaterally - Abdomen Abdomen: Other (I am unable to tell if she is tender on abdominal examination nor flank examination as she basically screams if I touch her anywhere including areas far removed from the site of pain.) - Neuro Neuro: Alert and oriented X 3 Results - Vitals Vitals: Vital Signs - 24 hr 05/23/24 05/23/24 05/23/24 18:04 19:48 21:00 Temperature 37.8 C Heart Rate 99 92 98 Respiratory 20 16 19 Rate Blood Pressure 132/81 H 122/81 H 116/76 O2 Saturation 100 96 96 05/23/24 22:00 Temperature Heart Rate 72 Respiratory 16 Rate Blood Pressure 113/71 O2 Saturation 97 Oxygen O2 Source Room air - Labs Labs: Laboratory Tests 05/23/24 05/23/24 05/23/24 18:33 18:33 19:41 WBC 15.3 H RBC 4.90 Hgb 15.0 Hct 45.6 MCV 93.1 MCH 30.6 MCHC 32.9 RDW 14.1 Plt Count 453 H MPV 9.2 Neut # (Auto) 13.9 H Lymph # (Auto) 0.9 L [place] # (Auto) 0.4 Eos # (Auto) 0.1 Baso # (Auto) 0.0 Absolute Nucleated RBC 0.00 Nucleated RBC % 0.0 Sodium 139 Potassium 4.1 Chloride 106 Carbon Dioxide 24 Anion Gap 9.0 BUN 18 Creatinine 0.7 Estimated GFR (MDRD) 95 Glucose 110 H Lactic Acid 1.2 Calcium 9.5 Total Bilirubin 0.7 AST 11 ALT 14 Alkaline Phosphatase 68 Total Protein 7.3 Albumin 4.1 Globulin 3.2 Albumin/Globulin Ratio 1.3 Lipase 10 L Urine Color Urine Clarity Urine pH Ur Specific [place] Urine Protein Urine Glucose (UA) Urine Ketones Urine Occult Blood Urine Nitrite Urine Bilirubin Urine Urobilinogen Ur Leukocyte Esterase Ur Microscopic Review Urine Culture Comments Urine HCG, Qual Urine Opiates Screen Ur Buprenorphine Scrn Ur Oxycodone Screen Urine Methadone Screen Ur Barbiturates Screen Ur Tricyclics Screen Ur Phencyclidine Scrn Ur Amphetamine Screen U Methamphetamines Scrn U Benzodiazepines Scrn Urine Cocaine Screen U Cannabinoids Screen Ur Drug Screen Comment 05/23/24 05/23/24 21:35 21:35 WBC RBC Hgb Hct MCV MCH MCHC RDW Plt Count MPV Neut # (Auto) Lymph # (Auto) [place] # (Auto) Eos # (Auto) Baso # (Auto) Absolute Nucleated RBC Nucleated RBC % Sodium Potassium Chloride Carbon Dioxide Anion Gap BUN Creatinine Estimated GFR (MDRD) Glucose Lactic Acid Calcium Total Bilirubin AST ALT Alkaline Phosphatase Total Protein Albumin Globulin Albumin/Globulin Ratio Lipase Urine Color LIGHT YELLOW Urine Clarity CLEAR Urine pH 6.5 Ur Specific [place] <=1.005 Urine Protein NEGATIVE Urine Glucose (UA) NEGATIVE Urine Ketones 40 H Urine Occult Blood NEGATIVE Urine Nitrite NEGATIVE Urine Bilirubin NEGATIVE Urine Urobilinogen 0.2 (NORMAL) Ur Leukocyte Esterase NEGATIVE Ur Microscopic Review NOT INDICATED Urine Culture Comments NOT INDICATED Urine HCG, Qual NEGATIVE Urine Opiates Screen POSITIVE H Ur Buprenorphine Scrn NEGATIVE Ur Oxycodone Screen NEGATIVE Urine Methadone Screen NEGATIVE Ur Barbiturates Screen NEGATIVE Ur Tricyclics Screen NEGATIVE Ur Phencyclidine Scrn NEGATIVE Ur Amphetamine Screen POSITIVE H U Methamphetamines Scrn POSITIVE H U Benzodiazepines Scrn NEGATIVE Urine Cocaine Screen NEGATIVE U Cannabinoids Screen POSITIVE H Ur Drug Screen Comment CUTOFF CONC BELOW: - Rads (name of study) CT A/P Relevant Findings:: Final report received (CT of the abdomen pelvis demonstrating stable large pelvic mass.), EMP independent interpretation of test Pelvic ultrasound was basically nondiagnostic due to the presence of the large adnexal mass. Relevant Findings:: Final report received, EMP independent interpretation of test PD Medical Decision Making - ED course ED course: She appears quite ill with abdominal pain. She has a known very large teratoma that was lost to follow-up. Differential would include recurrence of her versus torsion emphysematous pyelonephritis. She is basically on examinable due to pain. I fear she is critically ill and requested the health information tech scan her without a test. The patients that there is no chance she was . health information tech noted that she has an allergy to iodine. Given the severity of her illness I asked the health information tech to please CT her and I will medicate her with Benadryl on return from CT. In the past her allergy has not been severe, just hives. She went over to CT, she still has the pelvic mass that is just really big. I reexamined her after that and she was much more comfortable. She did not have any surgical signs and her belly was not tense but she definitely had tenderness in the low abdomen. Pelvic ultrasound ordered to evaluate for torsion. Lab work demonstrates moderate elevation of white cells to 15,000 and platelets to 453 with left shift. CMP and lactate were negative/normal. The RDMS reported to me that she could not definitively define the patient's right ovary. There was some tissue with density closer to the ovary near the dermoid, but did not have flow but basically told me it was nondiagnostic ultrasound. Given the above I did ask our FIELD REIMBURSEMENT MANAGER, Dr. Amezquita to come see her as we are worried that she may have a torsion. + Care to Dr Carolina pending Machine Sander eval Departure - Departure Disposition: 66 [facility] DC/Xfer Clinical Impression: Acute abdomen, Methamphetamine abuse Condition: Serious Forms: PCP List
[2024-05-23] MEDS ORDERED: iohexoL-300 100 ML VIAL ONE (19:58)
[2024-05-23] MEDS: ONDANSETRON 4 MG/2 ML VIAL IVP STA (20:00)
[2024-05-23] MEDS: KETOROLAC 15 MG/ML VIAL IVP STA (20:00)
[2024-05-23] MEDS: SODIUM CHLORIDE 0.9% 1,000 ML IV STA (20:00)
[2024-05-23] MEDS: HYDROmorphone 1 MG/ML CARPUJECT IVP STA (20:01)
[2024-05-23] MEDS: diphenhydrAMINE INJ 50 MG/ML VIAL IVP STA (20:09)
[2024-05-23] MEDS: iohexoL-300 100 ML VIAL IVP ONE (20:32)
--- NOTE | 2024-05-23 21:11 | CT Report ---
PROCEDURE: Abdomen/Pelvis W INDICATIONS: iV only, abd pain, ok to CT w/o preg test CONTRAST: 100ml [id number] TECHNIQUE: After the administration of intravenous contrast, a CT scan of the abdomen and pelvis was performed. Images were recorded and evaluated at appropriate window settings. Reformats: coronal and sagittal. F or radiation dose reduction, the following was used: automated exposure control, adjustment of mA and /or kV according to patient size. COMPARISON: 11/13/2023, 12/18/2022. MRI of pelvis dated 11/14/2023 FINDINGS: Image quality: Diagnostic. Lower chest: Unremarkable. Liver: No solid mass. Gallbladder: Gallbladder is distended. No calcified gallstones or gallbladder wall thickening. Biliary tree: No intrahepatic or extrahepatic dilation, accounting for age. Spleen: No splenomegaly. Pancreas: No pancreatic ductal dilation. Adrenals: No adrenal nodule. Kidneys and ureters: No hydronephrosis. No renal cystic lesion which requires follow up. No solid mas s. Stomach, bowel and peritoneum: No gastric or small bowel dilation. No abnormal wall thickening. No pa thologic free fluid. Mild fecal stasis in the colon is seen. No peritoneal free air. Lymph nodes: No central or retroperitoneal adenopathy. Vessels: No infrarenal aortic aneurysm. Patent portal vein. PELVIS Reproductive organs: Large mixed density mass in mid lower abdomen and pelvis is again seen and measu res up to 11.3 x 11.2 x 13.2 cm in largest transverse, AP and craniocaudal dimension series 2 image 1 12 and series 4 image 33. This is not significantly changed in measurement compared to previous MRI s tudy. Bladder: No abnormal wall thickening, accounting for underdistention. Pelvic lymph nodes: No pelvic adenopathy by size criteria. Bones: No aggressive osseous abnormality. Other: No significant ventral or inguinal hernia. IMPRESSION: 1. Stable mixed density mass in central lower abdomen and pelvis not significantly changed in size an d appearance compared to previous studies and likely represent a large teratoma. Given its size, and likely right ovarian origin seen on MRI. Ovarian torsion cannot be excluded. 2. No bowel obstruction or abnormal bowel wall thickening. No abscess collection. No free fluid of fr ee air. Reviewed by: Philip Salas MD on 05/23/2024 9:10 PM PDT Approved by: Philip Salas MD on 05/23/2024 9:10 PM PDT Station ID: [id number]
[2024-05-23 21:42] LABS: BILIRUBIN,URINE NEGATIVE (NEGATIVE); GLUCOSE, URINE (UA) NEGATIVE (NEGATIVE); KETONES,URINE (UA) 40 mg/dL (NEGATIVE); LEUKOCYTE ESTERASE, URINE NEGATIVE (NEGATIVE); NITRITE,URINE NEGATIVE (NEGATIVE); OCCULT BLOOD,URINE NEGATIVE (NEGATIVE); PH,URINE 6.5 PH (5.0-7.5); PROTEIN,URINE NEGATIVE (NEGATIVE); UROBILINOGEN,URINE 0.2 (NORMAL) E.U./dL (NORMAL)
[2024-05-23 21:43] LABS: CLARITY,URINE CLEAR (CLEAR)
[2024-05-23 21:45] LABS: HCG UR QUAL NEGATIVE
--- NOTE | 2024-05-23 21:49 | Ultrasound Report ---
PROCEDURE: Pelvic w/Doppler Complete INDICATIONS: Pelvic pain with known dermoid question torsion TECHNIQUE: Real-time scanning was performed of the pelvic organs, with image documentation. Additional endovagi nal scanning was necessary due to incomplete visualization of the adnexal and endometrial structures by transabdominal scanning. COMPARISON: CT of abdomen and pelvis from the same day, 11/13/2023 and MRI of pelvis dated . FINDINGS: Uterus: Uterus is anteverted and normal in size at 5.9 x 2.9 x 3.2 cm. The myometrium is homogeneou s. The endometrium measures 14.9 mm in combined thickness. No gross endometrial mass or fluid is se en. Ovaries: The right ovary measures 4.0 x 3.4 x 4.2 cm, with a calculated ovarian volume of 30.7 cc. The left ovary measures 2.1 x 1.2 cm. Bilateral ovaries are not well seen due to presence of patient' s known large pelvic mass. There is suggestion of inferior lead displaced right ovary with internal v ascularity seen. 14.3 x 9.7 x 13.4 cm large complex heterogeneous mass involving right adnexa is again seen. This was better evaluated a previous pelvic MRI. Other: No pathologic free abdominal or pelvic fluid. IMPRESSION: 1. Limited study due to presence of large right adnexal complex mass as above. 2. There is suggestion of arterial flow within right ovary, although intermittent torsion cannot be e ntirely excluded. 3. Normal appearing uterus and endometrium. Reviewed by: Philip Lewis MD on 05/23/2024 9:48 PM PDT Approved by: Philip Lewis MD on 05/23/2024 9:48 PM PDT Station ID: [id number]
[2024-05-23 22:05] LABS: AMPHETAMINE SCREEN,URINE POSITIVE (NEGATIVE); BARBITURATE SCREEN,UR NEGATIVE (NEGATIVE); BENZODIAZEPINES SCREEN, URINE NEGATIVE (NEGATIVE); BUPRENORPHINE SCREEN, URINE NEGATIVE (NEGATIVE); COCAINE SCREEN URINE NEGATIVE (NEGATIVE); METHADONE SCREEN, URINE NEGATIVE (NEGATIVE); METHAMPHETAMINES SCREEN, URINE POSITIVE (NEGATIVE); OPIATE SCREEN, URINE POSITIVE (NEGATIVE); OXYCODONE SCREEN, URINE NEGATIVE (NEGATIVE); THC CANNABINOID SCREEN, URINE POSITIVE (NEGATIVE); TRICYCLIC ANTIDEPRESSANT,URINE NEGATIVE (NEGATIVE)
[2024-05-24] MEDS ORDERED: ONDANSETRON 4 MG/2 ML VIAL IVP PRN (00:09)
[2024-05-24] MEDS ORDERED: ONDANSETRON ODT 4 MG TABLET PO PRN (00:09)
[2024-05-24] MEDS ORDERED: oxyCODONE 5 MG TABLET PO PRN (00:09)
[2024-05-24] MEDS ORDERED: ZOLPIDEM 5 MG TABLET PO PRN (00:09)
[2024-05-24] MEDS ORDERED: IBUPROFEN 600 MG TABLET PO PRN (00:09)
[2024-05-24] MEDS ORDERED: SODIUM CHLORIDE FLUSH 0.9% 10 ML SYRINGE IVP PRN (00:09)
[2024-05-24] MEDS ORDERED: ACETAMINOPHEN 325 MG TABLET PO PRN ×2 (00:09→09:04)
--- NOTE | 2024-05-24 00:27 | HISTORY & PHYSICAL EXAMINATION ---
Chief Complaint - Chief Complaint Chief Complaint: ovarian cyst History of Present Illness - History of Present Illness HPI Comment/Other: Mary Lou is a 33 yo who is admitted for observation with abdominal pain, large ovarian cyst. Mary Lou is accompanied by her partner today. Most of history obtained from her partner, Mary Lou unable to stay awake during interview/exam. He reports severe abdominal pain starting early today, associated with significant amount of N/V. Reports that she intermittently has discomfort from known cyst but nothing like today. Pain mostly in her lower back but also in her pelvis. In the ED, received pain medication several hours ago and has been much more comfortable since. She was diagnosed with pelvic mass in October after admission for pyelonephritis, imaging suggestive of large ovarian teratoma. Outpatient overlocker follow up was recommended but she was lost to follow up. Denies recent drug use. 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 - Substance History Use: Uses substance without health or social issues: Tobacco (1 pack / 3 days ), Cannabis - POLST Patient has POLST: No POLST Status: Full Code Meds/Allgy - Home Medications Home Medications: Ambulatory Orders Medication Instructions Recorded Confirmed No Known Home Medications 05/23/24 05/23/24 - Allergies Allergies/Adverse Reactions: Allergies Allergy/AdvReac Type Severity Reaction Status Date / Time cinnamon Allergy Severe Hives Verified 05/23/24 18:08 melon Allergy Unknown Unknown Verified 05/23/24 18:08 watermelon Allergy Unknown Unknown Verified 05/23/24 18:08 iodine Allergy Hives Verified 05/23/24 18:08 Latex, Natural Rubber AdvReac Anaphylaxis Verified 05/23/24 18:08 Penicillins AdvReac Anaphylaxis Verified 05/23/24 18:08 Berries Allergy Unknown Unknown Uncoded 05/23/24 18:08 Exam - Vital Signs Vital Signs: Vital Signs x48h Temp Pulse Resp BP Pulse Ox 05/23/24 22:00 72 16 113/71 97 05/23/24 21:00 98 19 116/76 96 05/23/24 19:48 92 16 122/81 H 96 05/23/24 18:04 100.0 F 99 20 132/81 H 100 - Physical Exam Comments/Other: Gen: NAD, unable to stay awake Rest: non labored respirations Abd: pelvic mass palpable, to approximately 1-2cm above umilicus, mobile. Mildly TTP. No rebound/guarding. Spec/bimanual exam deferred Ext: no LE edema Conclusion/Plan - Lab Results Fish Bones: 05/23/24 18:33 05/23/24 18:33 - Diagnostic Imaging Results Diagnostic Imaging Results: positive: Final report reviewed, See rad report - Other Other Results/Comments: 33 yo presenting with: - large pelvic mass, suspected right ovarian dermoid cyst - abdominal pain - + UDS Severe pain improved significantly with initial treatment with pain medication in the ED, now able to sleep. Has not received additional pain medication. Intermittent torsion is possible, but arterial flow suggested on pelvis US. Discussed observation over night with pain management as needed. Discussed if severe pain recurs/persists, would recommend proceeding with surgical management. If pain well controlled, could consider close outpatient follow up and surgery. Mary Lou and her partner expressed agreement with above plan. Will keep NPO for now. Repeat CBC in AM. Ulises Amezquita MD
[2024-05-24] MEDS: SODIUM CHLORIDE FLUSH 0.9% 10 ML SYRINGE IVP SCH (01:45)
[2024-05-24] MEDS: LACTATED RINGERS 1,000 ML IV SCH (01:45)
[2024-05-24 07:27] LABS: BASOPHILS % (AUTO) 0.4 %; EOSINOPHILS % (AUTO) 0.3 %; HCT - HEMATOCRIT 38.2 % (37.0-47.0); HGB - HEMOGLOBIN 12.3 g/dL (12.0-16.0); LYMPHOCYTES # (AUTO) 1.7 10^3/uL (1.5-3.5); LYMPHOCYTES % (AUTO) 16.7 %; MEAN CORPUSCULAR HEMOGLOBIN 30.4 pg (27.0-31.0); MEAN CORPUSCULAR HGB CONC 32.2 g/dL (32.0-36.0); MEAN CORPUSCULAR VOLUME 94.3 fL (81.0-99.0); MEAN PLATELET VOLUME 9.7 fL (7.9-10.8); MONOCYTES # (AUTO) 0.7 10^3/uL (0.0-1.0); MONOCYTES % (AUTO) 6.9 %; NEUTROPHILS # (AUTO) 7.6 10^3/uL (1.5-6.6); NEUTROPHILS % (AUTO) 74.3 %; PLT - PLATELET COUNT 339 10^3/uL (130-450); RED BLOOD COUNT 4.05 10^6/uL (4.20-5.40); RED CELL DISTRIBUTION WIDTH 14.6 % (12.0-15.0); WHITE BLOOD COUNT 10.2 x10^3/uL (4.8-10.8)
[2024-05-24] MEDS: oxyCODONE 5 MG TABLET PO PRN (08:08)
[2024-05-24 08:12] VITALS: BP 108/66; O2SAT 96
--- NOTE | 2024-05-24 08:33 | PHARMACY PROGRESS NOTE ---
- Best Possible Medication History Admit Date and Time: 05/24/24 0009 Processed by: Nursing Medications reviewed in ED?: Yes Medication History completed: Yes Patient Interview: Completed As the person ultimately responsible for medication therapy, providers are able to order a medication from an existing home medication list in [facility] via the "Reconcile Routine" prior to Confirmation of that medication by production support consultant. Such practice is discouraged except when the physician, in their clinical judgment, deems that a medical need exists for a medication without regard to previous use.
--- NOTE | 2024-05-24 16:33 | DISCHARGE SUMMARY ---
Discharge Summary Admit Date: 05/23/24 Discharge Date: 05/24/24 Discharging Provider: Ulises Amezquita MD Code Status: Attempt Resuscitation Condition at Discharge: Serious - DIAGNOSES Admission Diagnoses: Pelvic mass, suspected large right ovarian dermoid cyst Abdominal pain Discharge Diagnoses with Status of Each Condition: Pelvic mass, suspected large right ovarian dermoid cyst - stable Abdominal pain - improved - HPI History of Present Illness: Mary Lou is a 33 yo who was admitted for observation with abdominal pain, large ovarian cyst (known large suspected dermoid cyst). She was admitted for pain control overnight with plans for possible surgical management the following day if symptoms not improved. Imaging on admission (pelvic US and CT) with stable size pelvic mass (13-14cm suspected ovarian dermoid), US suggested presence of arterial flow. WBC elevated on initial labs, normal this AM. Pain was well managed overnight and she was able to sleep. This AM, Mary Lou reported pain significantly better than the day prior. She felt comfortable for discharge home with tylenol/motrin PRN for pain with close outpatient follow up. We discussed general benign nature of dermoid cysts (small risk of malignancy) although I would recommend removal given its large size and she is symptomatic. Plan to discuss surgical management in more detail outpatient. - ALLERGIES Allergies/Adverse Reactions: Allergies Allergy/AdvReac Type Severity Reaction Status Date / Time cinnamon Allergy Severe Hives Verified 05/23/24 18:08 melon Allergy Unknown Unknown Verified 05/23/24 18:08 watermelon Allergy Unknown Unknown Verified 05/23/24 18:08 iodine Allergy Hives Verified 05/23/24 18:08 Latex, Natural Rubber AdvReac Anaphylaxis Verified 05/23/24 18:08 Penicillins AdvReac Anaphylaxis Verified 05/23/24 18:08 Berries Allergy Unknown Unknown Uncoded 05/23/24 18:08 - MEDICATIONS Home Medications: Ambulatory Orders Medication Instructions Recorded Confirmed Acetaminophen [Tylenol] 650 mg PO Q6H PRN #30 tab 05/24/24 Ibuprofen [Motrin] 600 mg PO Q6H PRN #30 tab 05/24/24 - PHYSICAL EXAM AT DISCHARGE Physical Exam Other/Comments: Gen: NAD Chest: non labored respirations Abd: palpable pelvic mass, TTP but without rebound/guarding, abdomen non distended. Ext: no LE edema - LABS Result Diagrams: 05/24/24 06:48 05/23/24 18:33 - FOLLOW UP Follow Up: Will have clinic contact Mary Lou for follow up in 1-2 weeks. - TIME SPENT Time Spent in Discharge (Minutes): 30
== END 2024-05-24 11:00 | disposition home or self-care (01) ==
LOC: ED 17:50 → MS2 05-24 00:09
PROVIDERS: ADMIT Obstetrics & Gynecology; ATTEND Obstetrics & Gynecology
DX: N83.201 Unspecified ovarian cyst, right side (principal); R11.2 Nausea with vomiting, unspecified; F17.200 Nicotine dependence, unspecified, uncomplicated; F15.10 Other stimulant abuse, uncomplicated; Z32.02 Encounter for pregnancy test, result negative
CPT/HCPCS: 36415; 51701; 74177; 76856; 80053; 80306; 81003; 81025; 83605; 83690; 85025; 93975; 96374; 96375; 99285; A9270; G0378; J1170; J1200; J7120; Q9967; 81001; 87086

== ENCOUNTER 2025-02-09 02:08 | Inpatient (IN) ==
--- NOTE | 2025-02-09 02:53 | ED Physician Documentation ---
History of Present Illness Stated complaint Stated Complaint: ABD/BACK PX Chief complaint Chief Complaint: Abd Pain Additonal information Additional information: 34-year-old with history of pelvic mass presents with right-sided abdominal pain. Patient reports progressively worsening right-sided abdominal pain for the last couple of days. It became acutely worse this evening and was a stabbing sensation with associated vomiting. She denies dysuria or diarrhea. She reportedly has a pelvic teratoma that was discovered last year, but she never followed up regarding this mass. Meds/Allgy Home Medications Ambulatory Orders Medication Instructions Recorded Confirmed No Known Home Medications 02/09/25 02/09/25 Allergies Allergies Allergy/AdvReac Type Severity Reaction Status Date / Time cinnamon Allergy Severe Hives Verified 02/09/25 02:46 melon Allergy Unknown Unknown Verified 02/09/25 02:46 watermelon Allergy Unknown Unknown Verified 02/09/25 02:46 iodine Allergy Hives Verified 02/09/25 02:46 Latex, Natural Rubber AdvReac Anaphylaxis Verified 02/09/25 02:46 Penicillins AdvReac Anaphylaxis Verified 02/09/25 02:46 Berries Allergy Unknown Unknown Uncoded 02/09/25 02:46 PFSH Active Problems All Active Problems (Updated 02/09/25 @ 07:40 by Erik Olvera MD) Abdominal pain (Acute) Teratoma of pelvis (Acute) Social History Social History Smoking Status: Current some day smoker Number of Years Smoked: 20 How many cigarettes a day do you smoke? (20 cigarettes=1 Pk): 10 Do you dip or chew tobacco?: No Do you vape?: Yes Patient requests smoking cessation consult: Yes Initiate information on smoking cessation: No Living arrangement: At home Living Condition: With spouse/s.o. Relationship: Level: Independent Do you feel safe in your home environment?: Yes Suffered physical, verbal, emotional, or financial abuse?: No History of Abuse: No Frequency: Occasional POLST Patient has POLST: No POLST Status: Full Code Exam Exam In acute distress bending over the side of a stretcher crying. Patient is notably tachycardic. Right CVA tenderness and right-sided abdominal tenderness with guarding. Results Vitals Vitals: Vital Signs - 24 hr 02/09/25 02:37 02/09/25 03:10 02/09/25 03:29 Temperature 36.8 C Temperature Source Temporal Artery Scan Pulse Rate 113 H Respiratory Rate 16 Blood Pressure 122/92 H O2 Saturation 100 O2 Source Room air Pain Intensity 10 10 8 02/09/25 03:30 02/09/25 04:00 02/09/25 04:09 Temperature Temperature Source Pulse Rate 99 54 L Respiratory Rate 20 20 Blood Pressure 122/87 112/68 O2 Saturation 95 94 O2 Source Room air Room air Pain Intensity 8 02/09/25 04:10 02/09/25 04:39 02/09/25 05:34 Temperature Temperature Source Pulse Rate Respiratory Rate Blood Pressure O2 Saturation O2 Source Pain Intensity 7 7 5 02/09/25 05:56 02/09/25 06:19 Temperature Temperature Source Pulse Rate 99 Respiratory Rate 20 Blood Pressure 134/79 H O2 Saturation 98 O2 Source Room air Pain Intensity 5 Oxygen O2 Source Room air Labs Labs: Laboratory Tests 02/09/25 02/09/25 02:55 06:00 WBC 16.7 H RBC 4.38 Hgb 13.3 Hct 41.3 MCV 94.3 MCH 30.4 MCHC 32.2 RDW 13.4 Plt Count 311 MPV 9.9 Neut # (Auto) 12.7 H Lymph # (Auto) 2.4 [place] # (Auto) 1.4 H Eos # (Auto) 0.1 Baso # (Auto) 0.1 Absolute Nucleated RBC 0.00 Nucleated RBC % 0.0 Sodium 134 L Potassium 4.1 Chloride 101 Carbon Dioxide 28 Anion Gap 5.0 L BUN 6 Creatinine 0.7 Estimated GFR (MDRD) 95 Glucose 123 H Calcium 9.0 Total Bilirubin 0.4 AST 12 ALT 10 Alkaline Phosphatase 54 Total Protein 6.7 Albumin 3.8 Globulin 2.9 Albumin/Globulin Ratio 1.3 Lipase 12 Urine Color YELLOW Urine Clarity CLEAR Urine pH 7.0 Ur Specific [place] <=1.005 Urine Protein NEGATIVE Urine Glucose (UA) NEGATIVE Urine Ketones NEGATIVE Urine Occult Blood NEGATIVE Urine Nitrite POSITIVE H Urine Bilirubin NEGATIVE Urine Urobilinogen 0.2 (NORMAL) Ur Leukocyte Esterase NEGATIVE Urine RBC None Seen Urine WBC 0-3 Ur Squamous Epith Cells MOD Squamous H Urine Bacteria Few Ur Microscopic Review INDICATED Urine Culture Comments NOT INDICATED Urine HCG, Qual NEGATIVE PD Medical Decision Making ED course ED course: Presents with severe right lower and suprapubic abdominal pain. Patient has a history of a known teratoma That she never had follow-up for. She is tachycardic on arrival but afebrile. She is in significant discomfort. Differential diagnosis includes teratoma pain, ovarian torsion, pyelonephritis, urinary tract infection, appendicitis. CT scan was obtained and interpreted by me showing a large teratoma mass. Radiology comments there is no appendicitis or evidence of right ovarian cyst, so I think torsion is less likely. Urine does show nitrates but with significant squamous cells, so I think this is likely contamination. GEOSCIENCES ASSOCIATE PROFESSOR Dr. Caceres was consulted, and patient's disposition pending GEOSCIENCES ASSOCIATE PROFESSOR evaluation. Discharge Plan Discharge Clinical Impression: Teratoma of pelvis, Abdominal pain Prescriptions: No Action No Known Home Medications Print Language: [place] Stand Alone Forms: PCP List
[2025-02-09 03:03] LABS: BASOPHILS # (AUTO) 0.1 10^3/uL (0.0-0.1); BASOPHILS % (AUTO) 0.3 %; EOSINOPHILS # (AUTO) 0.1 10^3/uL (0.0-0.7); EOSINOPHILS % (AUTO) 0.5 %; HCT - HEMATOCRIT 41.3 % (37.0-47.0); HGB - HEMOGLOBIN 13.3 g/dL (12.0-16.0); LYMPHOCYTES # (AUTO) 2.4 10^3/uL (1.5-3.5); LYMPHOCYTES % (AUTO) 14.4 %; MEAN CORPUSCULAR HEMOGLOBIN 30.4 pg (27.0-31.0); MEAN CORPUSCULAR HGB CONC 32.2 g/dL (32.0-36.0); MEAN CORPUSCULAR VOLUME 94.3 fL (81.0-99.0); MEAN PLATELET VOLUME 9.9 fL (7.9-10.8); MONOCYTES # (AUTO) 1.4 10^3/uL (0.0-1.0); MONOCYTES % (AUTO) 8.4 %; NEUTROPHILS # (AUTO) 12.7 10^3/uL (1.5-6.6); PLT - PLATELET COUNT 311 10^3/uL (130-450); RED BLOOD COUNT 4.38 10^6/uL (4.20-5.40); RED CELL DISTRIBUTION WIDTH 13.4 % (12.0-15.0); WHITE BLOOD COUNT 16.7 x10^3/uL (4.8-10.8)
[2025-02-09] MEDS: KETOROLAC 15 MG/ML VIAL IVP STA (03:10)
[2025-02-09] MEDS: ONDANSETRON 4 MG/2 ML VIAL IVP STA (03:10)
[2025-02-09 03:22] LABS: ALBUMIN 3.8 g/dL (3.2-5.5); ALBUMIN/GLOBULIN RATIO 1.3 (1.0-2.2); BILIRUBIN,TOTAL 0.4 mg/dL (0.2-1.0); CREATININE 0.7 mg/dL (0.6-1.3); POTASSIUM 4.1 mmol/L (3.5-4.5); TOTAL PROTEIN 6.7 g/dL (6.4-8.9)
[2025-02-09] MEDS: HYDROmorphone 0.5 MG/0.5 ML SYRINGE IVP STA ×2 (03:30→04:39)
[2025-02-09] MEDS ORDERED: iohexoL-300 100 ML VIAL ONE (03:31)
[2025-02-09] MEDS: diphenhydrAMINE INJ 50 MG/ML VIAL IVP STA (03:54)
[2025-02-09] MEDS: iohexoL-300 100 ML VIAL IVP ONE (03:58)
[2025-02-09] MEDS: SODIUM CHLORIDE 0.9% 500 ML IV ONE (05:31)
[2025-02-09 06:27] LABS: BILIRUBIN,URINE NEGATIVE (NEGATIVE); GLUCOSE, URINE (UA) NEGATIVE (NEGATIVE); KETONES,URINE (UA) NEGATIVE (NEGATIVE); LEUKOCYTE ESTERASE, URINE NEGATIVE (NEGATIVE); NITRITE,URINE POSITIVE (NEGATIVE); OCCULT BLOOD,URINE NEGATIVE (NEGATIVE); PROTEIN,URINE NEGATIVE (NEGATIVE); UROBILINOGEN,URINE 0.2 (NORMAL) E.U./dL (NORMAL)
[2025-02-09 06:28] LABS: CLARITY,URINE CLEAR (CLEAR); HCG UR QUAL NEGATIVE
[2025-02-09 06:38] LABS: BACTERIA,URINE Few /HPF (None Seen); RBC,URINE None Seen /HPF (0-5); SQUAMOUS EPITHELIAL CELL,UR MOD Squamous (<= Few); WBC,URINE 0-3 /HPF (0-5)
--- NOTE | 2025-02-09 08:12 | CT Report ---
PROCEDURE: CT Abdomen/Pelvis W INDICATIONS: RLQ pain CONTRAST: 100 ML OMNI 300 TECHNIQUE: After the administration of intravenous contrast, a CT scan of the abdomen and pelvis was performed. Images were recorded and evaluated at appropriate window settings. Reformats: coronal and sagittal. F or radiation dose reduction, the following was used: automated exposure control, adjustment of mA and /or kV according to patient size. COMPARISON: None. FINDINGS: Image quality: Diagnostic. Large mixed attenuation mass in the pelvis with soft tissue, fat and calcification has the appearance of large dermoid unchanged measuring up to approximately 12 x 11 x 11 cm. Surgical consult is needed . Peripherally enhancing tubular structure in the right low pelvis measuring up to 1.2 cm diameter is n onspecific but appears to arise from the right adnexa and may represent fluid-filled fallopian tube, hydrosalpinx, pyosalpinx or other. Dilated appendix, appendicitis is considered less likely as there is a 4 mm nondilated gas-filled tubular structure arising from the base of the cecum (axial series 2 images 90-96). Given the large size of the dermoid which may predispose to ovarian torsion this also most be conside red in the setting of right pelvic pain. Lower chest: Unremarkable. Liver: Liver is normal in size contour and attenuation. Gallbladder: No radiopaque stones or wall thickening. Biliary tree: No intrahepatic or extrahepatic dilation, accounting for age. Spleen: No splenomegaly. Pancreas: No pancreatic ductal dilation. Adrenals: No adrenal nodule. Kidneys and ureters: No hydronephrosis. No renal cystic lesion which requires follow up. No solid mas s. Stomach, bowel and peritoneum: No gastric or small bowel dilation. No abnormal wall thickening. No pa thologic free fluid. Lymph nodes: No central or retroperitoneal adenopathy. Vessels: No infrarenal aortic aneurysm. Patent portal vein. PELVIS Bladder: No abnormal wall thickening, accounting for underdistention. Pelvic lymph nodes: No pelvic adenopathy by size criteria. Bones: No aggressive osseous abnormality. Other: No significant ventral or inguinal hernia. IMPRESSION: Large mixed attenuation pelvic mass, dermoid similar to the prior exam. New dilated tubular structure in the right lower quadrant more likely represent dilated fallopian tub e, hydrosalpinx, pyosalpinx as discussed above. Appendicitis considered less likely with nondilated t ubular structure arising from the base of the cecum. Surgical consult is needed. Ovarian torsion shou ld be considered. No significant discrepancy from the preliminary report provided by Maria G Pastor ded, M.D. February 09, 2025 at 05:56 Reviewed by: aMgan Cortez MD on 02/09/2025 8:10 AM PDT Approved by: Magan Cortez MD on 02/09/2025 8:10 AM PDT Station ID: [id number]
--- NOTE | 2025-02-09 08:23 | HISTORY & PHYSICAL EXAMINATION ---
Chief Complaint Chief Complaint Chief Complaint: pelvic pain, adnexal mass History of Present Illness Admitted From Admitted From:: ER History of Present Illness HPI Comment/Other: presents with severe abd pain. In April last year came to ER with large dermoid cyst. was to follow up as out patient but never did. Now with severely increased pain. Ready to have mass removed today. Meds/Allgy Home Medications Ambulatory Orders Medication Instructions Recorded Confirmed No Known Home Medications 02/09/25 02/09/25 Allergies Allergies Allergy/AdvReac Type Severity Reaction Status Date / Time cinnamon Allergy Severe Hives Verified 02/09/25 02:46 melon Allergy Unknown Unknown Verified 02/09/25 02:46 watermelon Allergy Unknown Unknown Verified 02/09/25 02:46 iodine Allergy Hives Verified 02/09/25 02:46 Latex, Natural Rubber AdvReac Anaphylaxis Verified 02/09/25 02:46 Penicillins AdvReac Anaphylaxis Verified 02/09/25 02:46 Berries Allergy Unknown Unknown Uncoded 02/09/25 02:46 PFSH Active Problems All Active Problems (Updated 02/09/25 @ 07:40 by Erik Olvera MD) Abdominal pain (Acute) Teratoma of pelvis (Acute) Social History Social History Smoking Status: Current some day smoker Number of Years Smoked: 20 How many cigarettes a day do you smoke? (20 cigarettes=1 Pk): 10 Do you dip or chew tobacco?: No Do you vape?: Yes Patient requests smoking cessation consult: Yes Initiate information on smoking cessation: No Living arrangement: At home Living Condition: With spouse/s.o. Relationship: Level: Independent Do you feel safe in your home environment?: Yes Suffered physical, verbal, emotional, or financial abuse?: No History of Abuse: No Frequency: Occasional POLST Patient has POLST: No POLST Status: Full Code Review of Systems Constitutional Denies: Fever Cardiovascular Denies: chest pain or shortness of breath with exertion Respiratory Denies: Shortness of breath Exam Exam Thin woman, poor dentition. new right eyebrow piercing. Respiratory normal respiratory effort Cardiovascular normal heart rate noted Gastrointestinal abdomen soft to palpation some tenderness below umbilicus. Mass not discretely palpable. Genitourinary deferred to OR Extremities normal to inspection Psychiatry mental status grossly normal Conclusion/Plan Problem List (1) Teratoma of pelvis: Plan: remove in OR today. risks and alternatives discussed. consent signed. Lab Results 02/09/25 02:55 02/09/25 02:55 Diagnostic Imaging Results Diagnostic Imaging Results: positive Read contemporaneously
[2025-02-09] MEDS ORDERED: MIDAZOLAM 2 MG/2 ML VIAL ONE (08:35)
[2025-02-09] MEDS ORDERED: PROPOFOL 200 MG/20 ML VIAL IVP ONE (08:36)
[2025-02-09] MEDS ORDERED: ROCURONIUM 50 MG/5 ML VIAL ONE (08:36)
[2025-02-09] MEDS ORDERED: fentaNYL 100 MCG/2 ML VIAL ONE (08:36)
[2025-02-09] MEDS ORDERED: BUPIVACAINE 0.25% PF 30 ML VIAL ONE (08:40)
[2025-02-09] MEDS ORDERED: LIDOCAINE 1%-EPI 1:100000 20 ML MDV ONE (08:40)
[2025-02-09] MEDS ORDERED: VASOPRESSIN 20 UNIT/ML VIAL ONE (09:03)
[2025-02-09] MEDS ORDERED: LIDOCAINE-PF 2% 10 ML AMP SUBQ ONE (09:36)
--- NOTE | 2025-02-09 09:57 | ANESTHESIA PROCEDURE NOTE ---
Pre-Anesthesia VS, & Labs Diagnosis Surgical Diagnosis:: teratoma of pelvis Procedure Procedure: removal of adnexal mass Vitals Vital Signs: Temp Pulse Resp BP Pulse Ox 37.0 C 92 16 133/89 H 96 02/09/25 08:39 02/09/25 08:39 02/09/25 08:39 02/09/25 08:39 02/09/25 08:39 NPO NPO: >8 hours Is Patient ?: No Lab Results Current Lab Results: Laboratory Tests 02/09/25 02:55: WBC 16.7 H, RBC 4.38, Hgb 13.3, Hct 41.3, MCV 94.3, MCH 30.4, MCHC 32.2, RDW 13.4, Plt Count 311, MPV 9.9, Neut # (Auto) 12.7 H, Lymph # (Auto) 2.4, [place] # (Auto) 1.4 H, Eos # (Auto) 0.1, Baso # (Auto) 0.1, Absolute Nucleated RBC 0.00, Nucleated RBC % 0.0, Sodium 134 L, Potassium 4.1, Chloride 101, Carbon Dioxide 28, Anion Gap 5.0 L, BUN 6, Creatinine 0.7, Estimated GFR (MDRD) 95, Glucose 123 H, Calcium 9.0, Total Bilirubin 0.4, AST 12, ALT 10, Alkaline Phosphatase 54, Total Protein 6.7, Albumin 3.8, Globulin 2.9, Albumin/Globulin Ratio 1.3, Lipase 12 02/09/25 02:55 02/09/25 02:55 Meds/Allgy Home Medications Ambulatory Orders Medication Instructions Recorded Confirmed No Known Home Medications 02/09/25 02/09/25 Allergies Allergies Allergy/AdvReac Type Severity Reaction Status Date / Time cinnamon Allergy Severe Hives Verified 02/09/25 02:46 melon Allergy Unknown Unknown Verified 02/09/25 02:46 watermelon Allergy Unknown Unknown Verified 02/09/25 02:46 iodine Allergy Hives Verified 02/09/25 02:46 Latex, Natural Rubber AdvReac Anaphylaxis Verified 02/09/25 02:46 Penicillins AdvReac Anaphylaxis Verified 02/09/25 02:46 Berries Allergy Unknown Unknown Uncoded 02/09/25 02:46 [facility] Medical History Medical History (Updated 02/09/25 @ 10:00 by Kisha Ang CRNA) Seizure pt reports she has seizures, but no medications or correlating diagnostics Teratoma of pelvis Abdominal pain Social History Social History (Updated 02/09/25 @ 10:02 by Kisha Ang CRNA) Smoking Status: Current every day smoker Number of Years Smoked: 20 How many cigarettes a day do you smoke? (20 cigarettes=1 Pk): 10 Do you dip or chew tobacco?: No Do you vape?: Yes Patient requests smoking cessation consult: Yes Initiate information on smoking cessation: No Living arrangement: At home Living Condition: With spouse/s.o. 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 pt educated and risk of arc from cautery and burn to face/piercing site. pt reports understanding and continues to refuse to remove piercing Plan Problem List (1) Teratoma of pelvis: Plan: remove in OR today. risks and alternatives discussed. consent signed. (2) Abdominal pain: Plan Anesthesia Type: General Consent for Procedure(s) Verified and Reviewed: Yes Code Status: Attempt Resuscitation ASA Classification ASA classification: 3-Severe systemic disease Is this case an emergency?: No
[2025-02-09] MEDS ORDERED: ALBUTEROL NEB 2.5 MG/3 ML INH PRN (10:08)
[2025-02-09] MEDS ORDERED: NALOXONE 0.4 MG/ML VIAL IVP PRN (10:08)
[2025-02-09] MEDS ORDERED: MORPHINE 2 MG/ML CARPUJECT IVP PRN (10:08)
[2025-02-09] MEDS ORDERED: ONDANSETRON 4 MG/2 ML VIAL IVP PRN ×2 (10:08→12:08)
[2025-02-09] MEDS ORDERED: ATROPINE ABBOJECT 1 MG/10 ML SYRINGE IVP PRN (10:08)
[2025-02-09] MEDS ORDERED: HYDROmorphone 0.5 MG/0.5 ML SYRINGE IVP PRN (10:08)
[2025-02-09] MEDS ORDERED: fentaNYL 100 MCG/2 ML VIAL IVP PRN (10:08)
[2025-02-09] MEDS ORDERED: ePHEDrine 50 MG/ML VIAL IVP PRN (10:08)
[2025-02-09] MEDS ORDERED: ACETAMINOPHEN 1,000 MG/100 ML 1,000 MG/100 ML BAG IV ONE (10:12)
[2025-02-09] MEDS ORDERED: SUGAMMADEX 200 MG/2 ML VIAL IVP ONE (10:17)
--- NOTE | 2025-02-09 11:06 | OPERATIVE REPORT ---
Operative Report General Admit Date: 02/09/25 Procedure Data: Operation Date: 02/09/25 08:45 Proposed Procedures p Section(Not Applicable) - Helga Caceres MD Actual Procedures p Laparotomy with drainage of left ovarian mass. Left salping-oopherectomy. Drainage of right pyosalpinx.(Not Applicable) - Helga Caceres MD Anesthesia Type General Case Staff Anesthesia Provider: Kisha Ang Assisting Provider: Birdie Dorsey Case Times Into Recovery: 02/09/25 10:39 Procedure Start: 02/09/25 09:34 Procedure End: 02/09/25 10:28 Time out: 02/09/25 09:30 Pre-Op Diagnosis: large pelvic pain with acute pain Post Op Diagnosis: left ovarian dermoid and right pyosalpinx Procedure Note Intake, IV Amount (ml): 600 Estimated Blood Loss (ml): 20 Output, Urine Amount (ml): 200 Pathology: left tube and ovary with mass Indications: Patient has had large mass in her pelvis since at least 11/2022. Has not come in for care except to ER. Is here today with pain that is quite bad and wants to feel better. agrees to OR today. Patient was assessed in the ER and consents signed. She agreed to procedure and we discussed that I did not know condition of her other tube/ovary but if normal she should still be able to conceive if she decided she wanted to and to have some hormone production from the ovary to prevent menopause. Findings: Very large left teratoma filled with dense yellow liquid and alot of hair. about 14 cm or more. No normal ovarian tissue seen. Uterus is very small. Right tube is very swollen and stuck down into the pelvis. Ovary is behind it and appears about 4 cm. In manipulating the tube to assess it, yellow liquid c namrata out. similar to the fluid from the ovary, but likely pus. The tube was about 1 cm wide before it drained. I was never able to bring the fibria out of the pelvis. Cultures were taken. Complications: no Other Other Information/Narrative: Home Health Rn: My assistant community director was scrubbed and present during the entire procedure and assisted with visualization, hemostasis, and closure. Procedure Details The risks, benefits, complications, treatment options, and expected outcomes were discussed with the patient. The patient concurred with the proposed plan, giving informed consent. The patient was taken to the Operating Room. 2 grams of Cefazolin were given. She had sequential compression devices on her lower extremities. Maxwell catheter was placed. A Time Out was held and the above information confirmed. The patient was prepped in the usual sterile manner. Drapes were placed. Anesthesia was tested and found to be adequate. Marcaine was injected into the area to be incised. A small Pfannenstiel incision was made and carried down through the subcutaneous tissue to the fascia. Fascial incision was made and extended transversely. The fascia was from the underlying rectus tissue superiorly and inferiorly. The peritoneum was identified and entered. P eritoneal incision was stretched. The Tres retractor was placed and rolled down. The cystic mass was filling the retractor space. 3-0 Monocryl was used to make a stitch [place] de[place] and a 5 mm trocar was placed in the center and the suture was cinched around it. The trocar inserted was removed and the trocar was attached to suction. There was a lot of hair in the mass so it did not drain very well, but enough to get it out of the belly. I clamped over the hole as I took the trocar out. I found the deep attachment to the uterus and IP and 2 clamps were placed. I cut the mass off and handed it off. 0 Vicryl suture was used to tie of these pedicles with transfixion sutures. The pedicles were hemostatic and far above the ureter. After this, the right tube was examined. It was swollen and stuck down into the pelvis. There were filmy adhesions that were . The tube was drained of some pus and cultures were taken. I was not able to get to the fimbria up from the pelvis. The ovary appeared normal. Irrigation was done. The Tres retractor was removed. Rectus muscles were examined carefully for bleeding. The muscles were brought together with figure of 8 of 0 Monocryl. The fascia was then reapproximated with running sutures of 0 Vicryl. The skin was closed with 4.0 Vicryl in subcuticular fascia. Wide steri strip was placed over the wound. Bandage was placed. Patient was extubated then brought to the PACU in stable condition. Instrument, sponge, and needle counts were correct prior the abdominal closure and at the conclusion of the case. Drains: Maxwell catheter to gravity Plan: Routine post op care. Discharge when stable and ambulatory.
[2025-02-09] MEDS ORDERED: metroNIDAZOLE 500 MG/100 ML 500 MG/100 ML BAG ONE (11:36)
[2025-02-09] MEDS: metroNIDAZOLE 500 MG/100 ML 500 MG/100 ML BAG IV ONE (11:38)
[2025-02-09] MEDS ORDERED: METOCLOPRAMIDE 10 MG/2 ML VIAL IVP PRN (12:08)
[2025-02-09] MEDS ORDERED: PHENOL THROAT SPRAY 177 ML MM PRN (12:08)
[2025-02-09] MEDS ORDERED: SODIUM CHLORIDE FLUSH 0.9% 10 ML SYRINGE IVP PRN (12:08)
[2025-02-09] MEDS ORDERED: KETOROLAC 30 MG/ML VIAL ONE (12:17)
[2025-02-09] MEDS: KETOROLAC 30 MG/ML VIAL IVP ONE (12:26)
[2025-02-09] MEDS: KETOROLAC 15 MG/ML VIAL IVP SCH (12:26)
--- NOTE | 2025-02-09 12:42 | PHARMACY PROGRESS NOTE ---
Best Possible Medication History Admit Date and Time: 02/09/25 [id number] Home Medications Medication Instructions Recorded Confirmed Type No Known Home Medications 02/09/25 02/09/25 History Processed by: Nursing Medications reviewed in ED?: Yes Medication History completed: Yes Patient Interview: Pt interview ONLY source BPM Statement: As the person ultimately responsible for medication therapy, providers are able to order a medication from an existing home medication list in [facility] via the "Reconcile Routine" prior to Confirmation of that medication by academic support coordinator. Such practice is discouraged except when the physician, in their clinical judgment, deems that a medical need exists for a medication without regard to previous use.
[2025-02-09] MEDS: DOXYCYCLINE INJ 100 MG in SODIUM CHLORIDE 0.9% MINIBAG 100 ML IV SCH (14:00)
--- NOTE | 2025-02-09 14:26 | ANESTHESIA POST OP EVALUATION ---
Anesthesia Post Eval Post Anesthesia Eval Vitals: Last Vital Signs Temp 37.1 C 02/09/25 13:25 Pulse 92 02/09/25 13:55 Resp 16 02/09/25 12:52 BP 123/86 02/09/25 13:55 Pulse Ox 93 02/09/25 13:55 CV Function Including HR & BP: Stable Pain Control: Satisfactory Nausea & Vomiting: Negative Mental Status: Baseline Respiratory Status: Airway Patent Hydration Status: Satisfactory Anesthesia Complications: None
[2025-02-09] MEDS: oxyCODONE 5 MG TABLET PO PRN (14:55)
[2025-02-09] MEDS: ceFAZolin (2G) 2 GM in SODIUM CHLORIDE 0.9% MINIBAG 100 ML IV ONE (17:31)
[2025-02-09] MEDS: LACTATED RINGERS 1,000 ML IV SCH (17:32)
[2025-02-09] MEDS: ACETAMINOPHEN 500 MG TABLET PO PRN (18:03)
[2025-02-09] MEDS: SODIUM CHLORIDE FLUSH 0.9% 10 ML SYRINGE IVP SCH (18:04)
[2025-02-09] MEDS ORDERED: oxyCODONE 5 MG TABLET PO PRN (19:20)
--- NOTE | 2025-02-09 19:20 | PROVIDER PROGRESS NOTE ---
Subjective Subjective Subjective: sleepy and then very painful when she wakes up. Had a bit to eat and drink but then felt nauseated. no vomiting. just went back to sleep. Current Medications Current Medications Current Medications: Current Medications Generic Name Dose Route Start Last Admin Trade Name Freq PRN Reason Stop Dose Admin Acetaminophen 500 mg 02/09/25 12:08 02/09/25 18:03 Acetaminophen 500 Mg Tablet PO 500 mg Q4HR PRN Administration Pain or Fever > 38C (100.4F) Famotidine 20 mg 02/09/25 21:00 Famotidine 20 Mg Tablet PO BID OMKAR Doxycycline Hyclate 100 mg/ 100 mls @ 100 mls/hr 02/09/25 11:00 02/09/25 15:00 Sodium Chloride IV Infused BID OMKAR Infusion Ketorolac Tromethamine 15 mg 02/09/25 12:30 02/09/25 18:03 Ketorolac 15 Mg/Ml Vial IVP 02/14/25 12:29 15 mg Q6H OMKAR Administration Metoclopramide HCl 10 mg 02/09/25 12:08 Metoclopramide 10 Mg/2 Ml Vial IVP Q6H PRN Nausea / Vomiting Ondansetron HCl 4 mg 02/09/25 12:08 Ondansetron 4 Mg/2 Ml Vial IVP Q6H PRN Nausea / Vomiting Oxycodone HCl 5 mg 02/09/25 12:08 02/09/25 14:55 Oxycodone 5 Mg Tablet PO 5 mg Q4HR PRN Administration Moderate Pain (Level 4-6) Phenol/Menthol 1 sprays 02/09/25 12:08 Phenol Throat [place] 177 Ml MM Q2HR PRN Throat Pain Sodium Chloride 10 ml 02/09/25 17:00 02/09/25 18:04 Sodium Chloride Flush 0.9% 10 Ml Syringe IVP 10 ml 0100,0900,1700 OMKAR Administration Sodium Chloride 10 ml 02/09/25 12:08 Sodium Chloride Flush 0.9% 10 Ml Syringe IVP PRN PRN NEEDED PER PROVIDER ORDERS Objective Vital Signs/Intake & Output Vital Signs: Vital Signs x48h Temp Pulse Pulse Pulse Resp BP BP 02/09/25 18:00 37.5 C 96 16 131/81 H 02/09/25 16:02 37.2 C 103 H 16 136/86 H 02/09/25 14:25 37.6 C 103 H 16 114/75 02/09/25 13:55 92 123/86 02/09/25 13:25 37.1 C 96 124/81 02/09/25 12:52 37.0 C 94 16 130/87 02/09/25 12:25 16 128/85 02/09/25 12:05 37 C 93 16 121/82 02/09/25 11:58 92 16 121/82 02/09/25 11:54 96 127/82 02/09/25 11:40 36.7 C 95 17 120/82 02/09/25 11:25 36.5 C 96 17 138/86 H 02/09/25 11:20 36.6 C 95 14 131/84 H Pulse Ox 02/09/25 18:00 97 02/09/25 16:02 96 02/09/25 14:25 97 02/09/25 13:55 93 02/09/25 13:25 94 02/09/25 12:52 92 02/09/25 12:25 93 02/09/25 12:05 92 02/09/25 11:58 02/09/25 11:54 91 L 02/09/25 11:40 93 02/09/25 11:25 93 02/09/25 11:20 94 Intake & Output: Intake & Output 02/06/25 02/07/25 02/08/25 02/09/25 23:59 23:59 23:59 23:59 Intake Total 2620 / 2620 Output Total 500 / 500 Balance 2120 / 2120 Weight (kg) 104 lb 15.993 oz Objective General Appearance: positive Mild distress Respiratory: positive No respiratory distress Abdomen: positive Tenderness (quite significant somewhat diffusedly. ) Lab Results 02/09/25 02:55 02/09/25 02:55 Other Labs: Lab Results x24hrs 02/09/25 02/09/25 Range/Units 06:00 02:55 WBC 16.7 H (4.8-10.8) x10^3/uL RBC 4.38 (4.20-5.40) 10^6/uL Hgb 13.3 (12.0-16.0) g/dL Hct 41.3 (37.0-47.0) % MCV 94.3 (81.0-99.0) fL MCH 30.4 (27.0-31.0) pg MCHC 32.2 (32.0-36.0) g/dL RDW 13.4 (12.0-15.0) % Plt Count 311 (130-450) 10^3/uL MPV 9.9 (7.9-10.8) fL Neut # (Auto) 12.7 H (1.5-6.6) 10^3/uL Lymph # (Auto) 2.4 (1.5-3.5) 10^3/uL [place] # (Auto) 1.4 H (0.0-1.0) 10^3/uL Eos # (Auto) 0.1 (0.0-0.7) 10^3/uL Baso # (Auto) 0.1 (0.0-0.1) 10^3/uL Absolute Nucleated RBC 0.00 x10^3/uL Nucleated RBC % 0.0 /100WBC Sodium 134 L (135-145) mmol/L Potassium 4.1 (3.5-4.5) mmol/L Chloride 101 (101-111) mmol/L Carbon Dioxide 28 (21-32) mmol/L Anion Gap 5.0 L (6-13) BUN 6 (6-20) mg/dL Creatinine 0.7 (0.6-1.3) mg/dL Estimated GFR (MDRD) 95 (>89) Glucose 123 H (74-104) mg/dL Calcium 9.0 (8.5-10.3) mg/dL Total Bilirubin 0.4 (0.2-1.0) mg/dL AST 12 (10-42) IU/L ALT 10 (10-60) IU/L Alkaline Phosphatase 54 (42-121) IU/L Total Protein 6.7 (6.4-8.9) g/dL Albumin 3.8 (3.2-5.5) g/dL Globulin 2.9 (2.1-4.2) g/dL Albumin/Globulin Ratio 1.3 (1.0-2.2) Lipase 12 (11-82) U/L Urine Color YELLOW Urine Clarity CLEAR (CLEAR) Urine pH 7.0 (5.0-7.5) PH Ur Specific [place] <=1.005 (1.002-1.030) Urine Protein NEGATIVE (NEGATIVE) mg/dL Urine Glucose (UA) NEGATIVE (NEGATIVE) mg/dL Urine Ketones NEGATIVE (NEGATIVE) mg/dL Urine Occult Blood NEGATIVE (NEGATIVE) Urine Nitrite POSITIVE H (NEGATIVE) Urine Bilirubin NEGATIVE (NEGATIVE) Urine Urobilinogen 0.2 (NORMAL) (NORMAL) E.U./dL Ur Leukocyte Esterase NEGATIVE (NEGATIVE) Urine RBC None Seen (0-5) /HPF Urine WBC 0-3 (0-5) /HPF Ur Squamous Epith Cells MOD Squamous H (<= Few) Urine Bacteria Few (None Seen) /HPF Ur Microscopic Review INDICATED Urine Culture Comments NOT INDICATED Urine HCG, Qual NEGATIVE Assessment/Plan Problem List (1) Teratoma of pelvis: Impression: removed. (2) Abdominal pain: Impression: did have a pyosalpinx and some discharge from the dermoid so likely some peritoneal irritation. She hopefully will feel better tomorrow. will increase pain meds.
[2025-02-09 20:23] LABS: CHLAMYDIA TRACHOMATIS DNA NEGATIVE (NEGATIVE); NEISSERIA GONORRHOEAE DNA NEGATIVE (NEGATIVE)
[2025-02-09 20:50] LABS: TRICHOMONAS VAGINALIS DNA POSITIVE (NEGATIVE)
[2025-02-09] MEDS: ACETAMINOPHEN 500 MG TABLET PO SCH (21:33)
[2025-02-09] MEDS: GABAPENTIN 400 MG CAPSULE PO SCH (21:33)
[2025-02-09] MEDS: FAMOTIDINE 20 MG TABLET PO SCH (21:33)
[2025-02-10 04:51] LABS: BASOPHILS % (AUTO) 0.2 %; EOSINOPHILS # (AUTO) 0.1 10^3/uL (0.0-0.7); EOSINOPHILS % (AUTO) 0.4 %; HGB - HEMOGLOBIN 11.3 g/dL (12.0-16.0); LYMPHOCYTES # (AUTO) 1.2 10^3/uL (1.5-3.5); LYMPHOCYTES % (AUTO) 8.9 %; MEAN CORPUSCULAR HEMOGLOBIN 30.6 pg (27.0-31.0); MEAN CORPUSCULAR HGB CONC 32.3 g/dL (32.0-36.0); MEAN CORPUSCULAR VOLUME 94.9 fL (81.0-99.0); MEAN PLATELET VOLUME 10.1 fL (7.9-10.8); NEUTROPHILS # (AUTO) 11.4 10^3/uL (1.5-6.6); NEUTROPHILS % (AUTO) 83.1 %; PLT - PLATELET COUNT 220 10^3/uL (130-450); RED BLOOD COUNT 3.69 10^6/uL (4.20-5.40); RED CELL DISTRIBUTION WIDTH 14.1 % (12.0-15.0); WHITE BLOOD COUNT 13.8 x10^3/uL (4.8-10.8)
--- NOTE | 2025-02-10 08:57 | Discharge Summary ---
Discharge Summary Admit Date: 02/09/25 Discharge Date: 02/10/25 Discharging Provider: Rio Barajas Code Status: Attempt Resuscitation DIAGNOSES Admission Diagnoses: Pelvic pain Ovarian cyst Discharge Diagnoses with Status of Each Condition: Status post left salpingo-oophorectomy Status post right pyosalpinx drainage Trichomonas: Unchanged HPI History of Present Illness: Subjective Patient reports she is doing well. Has not ambulated, but Maxwell just came out. Encourage ambulation this morning. Pain is well-controlled. Will transition to oral only medications. No significant bleeding. Objective General: Alert, oriented, no apparent distress. Cardiovascular: Regular rate. Regular rhythm. Lungs: No increased work of breathing. Abdomen: Soft, nontender. No guarding or rebound. Incision clean, dry, intact. Extremities: No pain on palpation. No cords palpated. Distal pulses intact. HOSPITAL COURSE Hospital Course: Patient admitted for acute on pain, presumably from her large dermoid cysts. She underwent a laparotomy for left salpingo-oophorectomy via mini laparotomy. At that time she was noted to have an inflamed and enlarged right fallopian tube that when manipulated, drained purulent appearing discharge. She was treated for pyosalpinx. Postoperative course was unremarkable and pain was much better controlled. Swabs came back positive for trichomonas. Discussed partner treatment and he should either go to his provider to get treated, go to a walk- in clinic, or can call for expedited partner therapy. She was doing better and discharged on postoperative day 1. ALLERGIES Allergies Allergy/AdvReac Type Severity Reaction Status Date / Time cinnamon Allergy Severe Hives Verified 02/09/25 02:46 melon Allergy Unknown Unknown Verified 02/09/25 02:46 watermelon Allergy Unknown Unknown Verified 02/09/25 02:46 iodine Allergy Hives Verified 02/09/25 02:46 Latex, Natural Rubber AdvReac Anaphylaxis Verified 02/09/25 02:46 Penicillins AdvReac Anaphylaxis Verified 02/09/25 02:46 Berries Allergy Unknown Unknown Uncoded 02/09/25 02:46 MEDICATIONS Ambulatory Orders Medication Instructions Recorded Confirmed doxycycline monohydrate 100 mg 100 mg PO BID 13 days #26 caps 02/10/25 capsule metronidazole 500 mg tablet 500 mg PO BID 13 days #26 tabs 02/10/25 oxycodone 5 mg tablet 5 mg PO Q4H PRN Severe Pain #20 02/10/25 tabs LABS 02/10/25 04:09 02/09/25 02:55 FOLLOW UP Follow Up: With Dr. Caceres at [facility] in 1 week TIME SPENT Time Spent in Discharge (Minutes): 30 Discharge Plan Discharge Patient Disposition: 01 Home, Self Care Condition: Stable Prescriptions: New metronidazole 500 mg tablet 500 mg PO BID 13 Days Qty: 26 0RF doxycycline monohydrate 100 mg capsule 100 mg PO BID 13 Days Qty: 26 0RF oxycodone 5 mg tablet 5 mg PO Q4H PRN (Reason: Severe Pain) Qty: 20 0RF Diet: Regular Print Language: Lao Patient Instructions: Vaginal Infec Trichomoniasis Stand Alone Forms: PCP List Follow-up Care: Helga Caceres MD [Provider Admit Priv/Credential] - 1 Week
[2025-02-10 09:43] VITALS: BP 115/63; TEMP 97.3; O2SAT 100
[2025-02-10] MEDS: cefTRIAXone 1 GM in SODIUM CHLORIDE 0.9% MINIBAG 100 ML IV ONE (09:52)
[2025-02-10] MEDS: metroNIDAZOLE 250 MG TABLET PO SCH (09:52)
--- NOTE | 2025-02-12 11:21 | OPERATIVE REPORT ---
Operative Report General Admit Date: 02/09/25 Procedure Data: Operation Date: 02/09/25 08:45 Proposed Procedures p Section(Not Applicable) - Helga Caceres MD Actual Procedures p Laparotomy with drainage of left ovarian mass. Left salping-oopherectomy. Drainage of right pyosalpinx.(Not Applicable) - Helga Caceres MD Anesthesia Type General Case Staff Anesthesia Provider: Kisha Ang Assisting Provider: Birdie Dorsey Case Times Into Recovery: 02/09/25 10:39 Procedure Start: 02/09/25 09:34 Procedure End: 02/09/25 10:28 Time out: 02/09/25 09:30 Other Other Information/Narrative: opened in error
== END 2025-02-10 12:15 | disposition home or self-care (01) | DRG 743 ==
LOC: ED 02:08 → RT.CABOT 08:37 → MS3 10:57
PROVIDERS: ADMIT Obstetrics & Gynecology; ATTEND Obstetrics & Gynecology
DX: N70.93 Salpingitis and oophoritis, unspecified; A59.01 Trichomonal vulvovaginitis; D27.1 Benign neoplasm of left ovary; R11.0 Nausea; F17.210 Nicotine dependence, cigarettes, uncomplicated; Z32.02 Encounter for pregnancy test, result negative